=== PATIENT | male | born 1955 | race Caucasian/White ===

== ENCOUNTER → 2018-02-16 11:19 | Outpatient (CLI) | payer MEDICARE, OTHER, SELFPAY ==
--- NOTE | 2018-02-16 | DI.US.S_ITS ---
PROCEDURE: US THYROID INDICATIONS: GLOBUS SYNDROME TECHNIQUE: Real-time scanning was performed of the thyroid gland, with image documentation. COMPARISON: [facility], US, THYROID, 08/21/2016, 10:51. FINDINGS: Right: Thyroid lobe measures 3.7 x 1.1 x 0.9 cm, and is homogeneous in echotexture. Left: Thyroid lobe measures 2.7 x 1.0 x 1.2 cm, and is homogenous in echotexture. Isthmus: 2 mm thick. No thyroid nodules visualized. IMPRESSION: Diminutive thyroid. No nodules visualized. Dictated by: Noreen Gill M.D. on 02/16/2018 at 16:26 Approved by: Noreen Gill M.D. on 02/16/2018 at 16:27
== END ==
PROVIDERS: Family Provider Family Medicine; PCP Family Medicine; Visit Provider Otolaryngology
DX: F45.8 Other somatoform disorders (principal)
CPT/HCPCS: 76536

== ENCOUNTER → 2018-04-12 10:36 | Outpatient (CLI) | payer MEDICARE, OTHER, SELFPAY ==
--- NOTE | 2018-04-12 | DI.RAD.S_ITS ---
PROCEDURE: XR CHEST 2V INDICATIONS: POST LIVER TRANSPLANT TECHNIQUE: 2 views of the chest were acquired. COMPARISON: [facility], CHEST 1 VIEW, 03/22/2012, 15:45. [facility], CHEST 2 VIEW, 02/21/2012, 15:42. [facility], , CHEST 1 VIEW, 02/19/2012, 15:54. [facility], , CHEST 2 VIEW, 02/06/2016, 10:44. [facility], CHEST 2 VIEW, 04/14/2017, 15:47. FINDINGS: Surgical changes and devices: Cervical spine fixation hardware partially visualized. Lungs and pleura: No pleural effusions or pneumothorax. Lungs are clear. Small nodules in the right lung are stable compared to 2015 2011 chest x-rays. There is slight blunting of the right costophrenic angle which is stable compared to prior exams. Mediastinum: Mediastinal contours are normal. Heart size is normal. Bones and chest wall: No suspicious bony abnormalities. Soft tissues appear unremarkable. IMPRESSION: No acute cardiopulmonary disease process. Dictated by: Ale Camargo MD, PhD on 04/12/2018 at 11:37 Approved by: Ale Camargo MD, PhD on 04/12/2018 at 11:40
--- NOTE | 2018-04-12 | DI.US.S_ITS ---
PROCEDURE: US VISCERAL DOPPLER LIMITED INDICATIONS: POST LIVER TRANSPLANT/KIDNEY TECHNIQUE: Real-time scanning was performed of the abdominal and retroperitoneal organs, with image documentation. Color and pulse Doppler interrogation was also performed of the hepatic and splenic vessels, or of the lesion of interest. COMPARISON: [facility], US, VISCERAL DOPPLER LIMITED, 11/11/2017, 16:01. FINDINGS: Liver: Liver is mildly coarse in echotexture and normal in size. Doppler: Main portal vein is patent, with luminal diameter of 19 mm (normal of 13-16 mm). On pulse Doppler interrogation, portal vein flow direction is hepatopetal. Hepatic artery Doppler waveforms demonstrate normal systolic upstrokes. Hepatic veins are all patent, with expected triphasic Doppler waveforms. Gallbladder: Not evaluated Biliary ducts: No intrahepatic biliary ductal dilatation. Extrahepatic bile duct is 10.0 mm in caliber. Normal biliary caliber is 6-7 mm or less, or 10 mm or less post-cholecystectomy. IMPRESSION: 1. Liver is coarse in echotexture and normal Doppler assessment of the hepato-portal vasculature. Of note, the main portal vein is prominent in caliber measuring 19 mm. Dictated by: Aaron Phelps [facility] Interpreted: Gómez Martinez MD on 04/14/2018 at 9:52 Approved by: Gómez Martinez M.D. on 04/14/2018 at 12:17
== END ==
PROVIDERS: Family Provider Family Medicine; PCP Family Medicine; Visit Provider Family Medicine
DX: R05 Cough (principal); Z94.4 Liver transplant status
CPT/HCPCS: 71046; 93976

== ENCOUNTER → 2018-04-26 12:03 | Outpatient (CLI) | payer MEDICARE, OTHER, SELFPAY ==
--- NOTE | 2018-04-26 | DI.US.S_ITS ---
PROCEDURE: US SOFT TISSUE HEAD AND NECK INDICATIONS: LUMP AND SWELLING RIGHT SIDE NECK TECHNIQUE: Real-time scanning was performed of the neck region of interest, with image documentation. COMPARISON: None. FINDINGS: Scanning is performed within the right submandibular region, at the area of clinical concern. No masses, cysts, lipomas, or enlarged lymph nodes are seen. IMPRESSION: Negative ultrasound. Dictated by: Daniel Scott M.D. on 04/26/2018 at 11:58 Approved by: Daniel Scott M.D. on 04/26/2018 at 11:59
== END ==
PROVIDERS: Family Provider Family Medicine; PCP Family Medicine; Visit Provider Otolaryngology
DX: R22.1 Localized swelling, mass and lump, neck (principal)
CPT/HCPCS: 76536

== ENCOUNTER 2018-07-28 15:30 | Outpatient (RCR) | payer MEDICARE, OTHER, SELFPAY | END 2019-01-20 13:48 | LOC: SP 15:30 | PROVIDERS: Family Provider Family Medicine; PCP Family Medicine; Visit Provider Otolaryngology | DX: R49.0 Dysphonia (principal); R13.19 Other dysphagia | CPT/HCPCS: 92507; 92520; 92521; 92526; 92610 ==

== ENCOUNTER → 2019-05-23 09:15 | Outpatient (CLI) | payer MEDICARE, OTHER, SELFPAY ==
--- NOTE | 2019-05-23 | DI.US.S_ITS ---
PROCEDURE: US ABDOMEN COMPLETE INDICATIONS: ENCOUNTER FOR AFTER CARE FOLLOWING ORGAN TRANSPLANT TECHNIQUE: Real-time scanning was performed of the abdominal and retroperitoneal organs, with image documentation. COMPARISON: [facility], CT, ABDOMEN/PELVIS WITH CONTRAST, 03/24/2012, 10:59. [facility], US, US VISCERAL DOPPLER LIMITED, 04/12/2018, 11:41. FINDINGS: Liver: Liver is diffusely increased in echogenicity. No focal hepatic abnormalities identified. Normal hepatic size. Hepatopedal flow present within the portal vein. Gallbladder: Surgically absent. Biliary ducts: Intrahepatic bile ducts are non-dilated. Extrahepatic bile duct not well-visualized. Pancreas: Visualized portions of the pancreas are sonographically normal. Spleen: Spleen is normal in size and homogeneous in echotexture. Kidneys: Atrophic [place] kidneys redemonstrated. Right lower quadrant allograft transplant kidney present measuring 12.9 cm in length. No hydronephrosis. Resistive indices range between 0.64 and 0.69. Aorta: Visualized aorta is normal in caliber at less than 3 cm. Iliacs: Proximal common iliac arteries are normal in caliber at less than 2.5 cm. IVC: Intrahepatic inferior vena cava is patent. Miscellaneous: No free abdominal fluid. IMPRESSION: 1. Increased hepatic echogenicity noted possibly related to hepatic steatosis but other sources of hepatocellular disease cannot be excluded. Recommend clinical correlation. 2. Right lower quadrant allograft transplant kidney redemonstrated and resistive indices are upper limits of normal. Dictated by: Aaron Phelps [facility] Interpreted: Ale Camargo MD on 05/23/2019 at 15:55 Approved by: Ale Camargo MD, PhD on 05/23/2019 at 16:46
== END ==
PROVIDERS: PCP Family Medicine; Visit Provider Family Medicine
DX: Z48.22 Encounter for aftercare following kidney transplant (principal)
CPT/HCPCS: 76700

== ENCOUNTER → 2019-05-27 12:20 | Outpatient (CLI) | payer MEDICARE, OTHER, SELFPAY ==
--- NOTE | 2019-05-27 | DI.RAD.S_ITS ---
PROCEDURE: XR CHEST 2V INDICATIONS: hypertension TECHNIQUE: 2 views of the chest were acquired. COMPARISON: [facility], CHEST 2 VIEW, 04/14/2017, 15:47. [facility], CHEST 2 VIEW, 02/06/2016, 10:44. [facility], XR CHEST 2V, 04/12/2018, 10:19. FINDINGS: Surgical changes and devices: None. Lungs and pleura: High density calcified granulomatous sequela projecting in both lungs as before.. No pleural effusions or pneumothorax. Blunting of the right costophrenic angle, chronic. Mediastinum: Mediastinal contours are normal. Heart size is normal. Bones and chest wall: No suspicious bony abnormalities. Multilevel spondylosis Soft tissues appear unremarkable. IMPRESSION: No interval change or acute disease. Dictated by: Darshan Nieto M.D. on 05/27/2019 at 13:56 Approved by: Darshan Nieto M.D. on 05/27/2019 at 13:59
== END ==
PROVIDERS: PCP Family Medicine; Visit Provider Family Medicine
DX: Z48.298 Encounter for aftercare following other organ transplant (principal); I10 Essential (primary) hypertension
CPT/HCPCS: 71046

== ENCOUNTER → 2020-01-16 12:10 | Outpatient (CLI) | payer MEDICARE, OTHER, SELFPAY ==
--- NOTE | 2020-01-16 | DI.CT.S_ITS ---
PROCEDURE: CT ABDOMEN W CON INDICATIONS: Kidney transplant status TECHNIQUE: After the administration of oral and intravenous contrast, 5 mm thick sections acquired from the diaphragms to the iliac crests. 5 mm thick coronal and sagittal reformats were acquired. For radiation dose reduction, the following was used: automated exposure control, adjustment of mA and/or kV according to patient size. COMPARISON: [facility], CT, ABDOMEN/PELVIS WITH CONTRAST, 03/24/2012, 10:59. Outside Facility, , CT THORAX/ABD/PELVIS W/O CONTRAST, 11/23/2018, 14:40. FINDINGS: Image quality: Excellent. Lung bases: Lung bases are clear. Heart size is normal. Solid organs: Liver is normal in size and enhancement. Low-density cystic lesions within the liver suggest the presence of simple hepatic cysts. Gallbladder is not visualized and is likely surgically absent. No intrahepatic biliary ductal dilatation. The common bile duct measures up to 2 cm in diameter. Pancreas enhances normally. Spleen is normal in size and enhancement. Dystrophic calcifications are present within the midpole of the spleen. No adrenal nodules. Bilateral lower [place] kidneys are severely atrophic. A right renal allograft is present within the right hemipelvis and demonstrates normal size and enhancement. A nonobstructing calculus is present within the midpole which measures 4 mm in diameter. No hydronephrosis. Peritoneum and bowel: Contrast enhanced bowel loops appear normal in caliber. The appendix is thin walled and gas filled. There are scattered sigmoid diverticula. No evidence for diverticulitis. No free fluid or air. Nodes and vessels: No retroperitoneal or mesenteric adenopathy by size criteria. Aorta and inferior vena cava are normal in size. There are scattered atheromatous calcifications throughout the aorta and iliac arteries bilaterally. Dense vascular calcifications are present within the splenic artery. Bones: No suspicious bony lesions. No vertebral body compression fractures. A small bone island is present within the left iliac and the right femoral head. Miscellaneous: No ventral hernias. There is a small right inguinal hernia which contains a non-strangulated portion of the anterior inferior right bladder. Bladder wall thickness is normal IMPRESSION: 1. Normal CT appearance of the right renal allograft. No hydronephrosis. Nonobstructing nephrolithiasis is present. 2. No acute intra-abdominal findings. Normal appendix. 3. Diverticulosis. No acute diverticulitis. 4. Aortic atherosclerosis. Splenic artery atherosclerosis. Dictated by: Noreen Gill M.D. on 01/16/2020 at 15:35 Approved by: Noreen Gill M.D. on 01/16/2020 at 16:03
== END ==
PROVIDERS: PCP Family Medicine; Referring Provider Family Medicine; Visit Provider Family Medicine
DX: Z94.0 Kidney transplant status (principal); N20.0 Calculus of kidney; K57.30 Diverticulosis of large intestine without perforation or abscess without bleeding; I70.8 Atherosclerosis of other arteries; I70.0 Atherosclerosis of aorta; K40.90 Unilateral inguinal hernia, without obstruction or gangrene, not specified as recurrent
CPT/HCPCS: 74160; Q9967

== ENCOUNTER 2020-04-09 13:02 | Outpatient (RCR) | payer MEDICARE, OTHER, SELFPAY ==
--- NOTE | 2020-04-12 14:57 | ST.OPIE ---
Visit Care Team Role Provider Type Rolf Pennington MD Primary Care Provider Physician Specialty: Family Practice Address: [address], [address], [place], [address] Email: Sharan Santos MD Attending Provider Physician Referring Provider Specialty: Ear, Nose, Throat Address: [address] [place] [address], [id number] Email: [email or web address] Speech-Language Pathology Initial Evaluation DIGITAL SERVICE ENGINEER Clinical Swallow Evaluation Start: 04/09/20 16:18 Freq: Status: Active Protocol: Document 04/09/20 16:18 LL (Rec: 04/09/20 16:22 LL [id number]) Clinical Swallow Evaluation Session Time Visit Start Date 04/09/20 Visit Start Time 13:30 Visit Stop Date 04/09/20 Visit Stop Time 14:28 Total Visit Minutes 58 Visit Information Visit Number 1 Plan of Care Dates 04/09/20-07/09/20 Insurance Information Medicare Referral Referring Provider Dr. Sharan Santos Reason for Referral Dysphagia Setting Assessment Location Outpatient Care Visit Type Note Type Initial evaluation Next Note Type Next Note Type Treatment Note Patient Information Identification Type Name,ID Card History Manuel is a 65-year-old male with complaints of increased choking / throat clearing on food and liquid. Manuel has received speech therapy services at [facility] over the last several years to address his dysphonia and dysphagia. Received MBSS at [facility] on 06/22/17, which revealed mild pharyngeal dysphagia with laryngeal penetration and mild aspiration of thin liquids taken in large volume and in consecutive swallows and without cough response. Received clinical swallow evaluation on 05/03/18 and findings suggested dysphagia secondary to reduced strength, coordination, and ROM of swallow reducing airway protection. Manuel was discharged from on 07/28/18 with a home exercise program that he continues to practice daily per self-report. Per recent visit with Dr. Sharan Santos, Manuel and his daughter reported that though he continues to practice his home exercise program, they feel that things have worsened especially with thin liquids. Manuel was treated for bronchitis on 03/06/20 and reported improved cough and no throat pain/discomfort. Manuel continues to have complaints of hoarseness of voice, however, he self- reported during 06/22/17 MBSS that he has right vocal fold paralysis following ACDF in 2012. Through previous chart review, it was reported that flexible laryngoscopy was performed by Dr. Sharan Santos (ENT) on 06/11/17 and revealed right nasal cavity, nasopharynx, base of tongue, vallecula, epiglottis, pyriform sinuses, and vocal folds all appear normal. Vocal folds were observed to be normally mobile without lesion or obvious asymmetry of mobility. Dr. Sharan Santos did note that based on Manuel's history of paralysis of the right vocal fold and worsening dysphagia, there may be ongoing paresis of the vocal fold involved. Per recent ENT visit, it was noted that Manuel downplayed voice issues and reported no other ENT complaints. Manuel reported that he returned to speech therapy per daughter's request and increased family concern for his swallow safety . Subjective Observations Manuel arrived on time with his grandson, who was present throughout the evaluation. Manuel provided additional case history information to supplement medical records. Reported by Patient Pain Intensity 0 Pain Scale Used Numeric (0 - 10) Other Symptoms Choking,Coughing,Difficulty swallowing liquids,Difficulty swallowing solids,Food gets stuck,History of aspiration or pneumonia Comment Manuel listed the recommended swallow strategies provided by previous DIGITAL SERVICE ENGINEER, which include small bites, small single sips only, and reduce distractions to decrease risk of aspiration. Manuel reported that experiences choking / throat clearing episodes whenever he does not follow the swallow strategies listed above, especially when he does not limit distractions (e.g., talking, watching tv). Manuel self-reported that he intermittently pockets food on the right side of his throat, specifically with crunchy foods such as popcorn and chips. He reported that he can clear the throat residue with a strong cough / throat clear. 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 Manuel reported that his daughter cuts up his food into smaller pieces to make it easier to grab with eating utensil, regulate rate of intake, and control size of bolus. Current Diet Regular,Chopped,Thin liquids Baseline Feeding Method Needs some assistance Objective Assessment Mental Status Alert,Cooperative Oral Integrity WFL Dentition Within normal limits Lip Function Within normal limits Observation of Lips at Rest Symmetrical Pucker Within normal limits Lip Retraction Within normal limits Alternating Pucker/Lip Retraction Within normal limits Tongue Function Within normal limits Observations of Tongue at Rest Within normal limits Tongue Protrusion Within normal limits Tongue Retraction Within normal limits Tongue Lateralization Within normal limits Observations of Jaw at Rest Within normal limits Jaw Opening Within normal limits Jaw Closing Within normal limits Jaw Lateralization Within normal limits Hard/Soft Palate Function Within normal limits Observations of Hard/Soft Palate Within normal limits Nasality Within normal limits Phonation Hoarse,Harsh,Strained/ Strangled Respiratory Sufficiency Within normal limits Comment Manuel self-reported that he continues to 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 Manuel received speech therapy to address dysphonia and flexible laryngoscopy revealed that his vocal folds were observed to be normally mobile without lesion or obvious asymmetry of mobility. Food and Liquid Trials Position During Assessment Upright (90 degrees) Liquids Trialed Thin,[place] Solids Trialed Puree,Regular Administration Type Cup single sip,Cup consecutive sips,Straw,Self-feeding,Needs some assistance Oral Impairment Within functional limits Oral Phase Comments Oral Peripheral Exam: Normal oral cavity size and symmetrical structures WFL of strength, coordination, and ROM. Oral Phase: WFL. Minimal oral residue present which cleared with thin liquid wash. Pharyngeal Impairment Mildly impaired Pharyngeal Phase Comments No over s/sx of aspiration were observed with all trials during clinical swallow evaluation; however, silent aspiration of thin liquids was observed during most recent MBSS. Intermittent throat clearing without PO was observed. Fatigue/Endurance Endurance WNL Findings Swallowing Function Pharyngeal phase dysphagia Severity of Swallow Impairment Mildly impaired Contributing Factors to Swallow Impaired airway protection Impairment Prognosis Fair Based on Cognitive status,Family support,History of aspiration/ aspiration pneumonia, Comorbidities,Duration of symptoms/severity Comment Manuel has wonderful family support to assist in ensuring that he follows recommended swallow strategies. Impact on Safety and Functioning Risk for aspiration Recommendations Instrumental Assessment Yes Swallowing Treatment Yes Recommended Solids Regular Recommended Liquids Thin Safety Precautions/Swallowing Reduce distractions,Remain Recommendations upright (90 degrees) during all oral intake,Small bites and sips when eating,Slow rate ; swallow between bites,Set-up assistance,Family assistance/ supervision Medication Recommendations As Tolerated Education Patient/Caregiver Education Described results of evaluation,Patient expressed understanding of evaluation, Patient expressed agreement with goals & treatment plans, Family/caregivers expressed understanding of evaluation, Family/caregivers expressed agreement with goals & treatment plans,Patient expressed understanding of safety precautions,Family/ caregivers expressed understanding of safety precautions,Patient requires further education/training, Family/caregivers require further education/training Goals Short-term Goals Manuel will participate in a modified barium swallow study to determine least restrictive diet, risk for aspiration, and skilled therapy recommendations. ST follow-up after modified barium swallow study to receive results and guide POC.
--- NOTE | 2020-08-28 11:29 | ST.OPDS ---
Patient last seen for MBS on 05/03/20. Discharge from at this time due to lapse in therapy.
== END 2020-09-03 15:10 ==
LOC: SP 13:02
PROVIDERS: PCP Family Medicine; Referring Provider Otolaryngology; Visit Provider Otolaryngology
DX: R13.19 Other dysphagia (principal)
CPT/HCPCS: 92610

== ENCOUNTER → 2020-05-03 12:53 | Outpatient (CLI) | payer MEDICARE, OTHER, SELFPAY ==
--- NOTE | 2020-05-03 | DI.RAD.S_ITS ---
PROCEDURE: FL BARIUM SWALLOW W SPEECH INDICATIONS: Other dysphagia COMPARISON: None. TECHNIQUE: Examination was conducted in conjunction with speech pathology per standard protocol. In the lateral projection, filming was performed of the patient swallowing. AP projection filming may also be performed with patient swallowing. COMPARISON: FINDINGS: Function: The oral preparatory phase appears normal, with proper containment. The subsequent oral propulsive phase, pharyngeal phase, and esophageal phase of swallowing also appear normal with all proffered substances. Mild laryngotracheal penetration noted with thin liquids which diminished with increasing liquid viscosity. No aspiration. No pathologic vallecular pooling. Morphology: No cricopharyngeal bar is identified. No cervical esophageal webs. No Zenker's diverticulum. No strictures. IMPRESSION: Mild laryngotracheal penetration with thin liquids. Dictated by: Ale Camargo MD, PhD on 05/03/2020 at 15:38 Approved by: Ale Camargo MD, PhD on 05/03/2020 at 15:39
--- NOTE | 2020-05-03 16:55 | ST.SWALLOW ---
Visit Care Team Role Provider Type Rolf Pennington MD Primary Care Provider Physician Referring Provider Specialty: Family Practice Address: [address], [address], [place], [address] Email: Sharan Santos MD Attending Provider Physician Specialty: Ear, Nose, Throat Address: [address] [place] [address], [id number] Email: [email or web address] Modified Barium Swallow Study MANAGER VIDEO Modified Barium Swallow Study Start: 05/03/20 15:10 Freq: Status: Active Protocol: Document 05/03/20 15:10 LNK (Rec: 05/03/20 15:30 LNK [id number]) Modified Barium Swallow Study Total Time Visit Start Time 13:45 Visit Stop Time 14:15 Total Visit Minutes [address] Santos Setting Setting Outpatient Care Patient Information Identification Type Name,Date of Patient History Pt was seen for Modified Barium Swallow Study (MBSS) at the referral of Dr. Santos. Pt has a medical history that included ACDF surgery and dysphagia. The pt described his swallowing problems as starting after his ACDF surgery . Pt had a MBSS on 2016. The results noted laryngeal penetration and aspiration of thin liquids. Pt reported he saw ST for dysphagia therapy 7-8 times following MBSS. Pt continues to cough during meals if he isn't paying attention to swallowing. Typically he has coughing after drinking and when eating crunchy foods like chips and small pieces of foods. His daughter has been concerned about his coughing episodes. Subjective Observations pt was seated in the fluoroscopy chair. Procedures and instructions were provided . Pt indicated he understood and agreed with proceeding. Patient Positioning Position View Lat-A/P Imaging Lateral View Textures Administered Trials Presented Thin Liquid via Spoon,Thin Liquid via Cup,Thin Liquid via Straw,Ledbetter Liquid via Spoon ,Ledbetter Liquid via Cup,Pudding Thick Liquid via Spoon, Regular Textures Oral Phase Source: MBSIMP (TM) (C) Bolus Specific Scoring Grid Lip Closure WFL Tongue Control During Bolus Hold WFL Bolus Prep/Mastication WFL Bolus Transport/Lingual Motion WFL A/P Lingual Propulsion Delay No Oral Residue Minimal Impairment Residue Clearing WFL Nasal Regurgitation No Additional Oral Phase Observations OME was completed and indicated oral structures and function to be WFL. Dentition consisted of natural teeth in good hygiene. Pharyngeal Phase Source: MBSIMP (TM) (C) Bolus Specific Scoring Grid Delayed Initiation of Pharyngeal Swallow Yes: Premature spillage to the valeculla and pyriform sinuses pre-swallow Number of Seconds Delayed (seconds) ~1-1.5s Soft Palate Elevation WFL Tongue Base Strength/Range of Motion Mild Impairment Residue Along the Tongue Base Yes Clearance of Residue Along Tongue Base Minimal Impairment Laryngeal Elevation Mild Impairment Anterior Hyoid Movement Mild Impairment Epiglottic Range of Motion Minimal Impairment Vallecular Residue Yes Clearance of Vallecular Residue Moderate Impairment Laryngeal Vestibular Closure Moderate Impairment Pharyngeal Stripping Wave Mild Impairment Upper Esophageal Sphincter Opening Minimal Impairment Residue in the Pyriform Sinuses Yes Clearance of Residue in the Pyriform Mild Impairment Sinuses Esophageal Clearance Upright Position Minimal Impairment Pharyngoesophageal Backflow Observed No Additional Pharyngeal Phase Observations Premature spillage into the valeculla and into the pyriform sinuses was observed consistently during assessment . Hyolaryngeal elevation and forward excursion were mildly impaired. This effected the epiglottic seal of the laryngeal vestibule. Laryngopharyngeal contact was also weak. The epiglottic seal was observed to be incomplete, with frequent penetration into the larynx of thin liquids from a cup. The epiglottis was observed to invert fully; however, there was a poor laryngeal seal. Use of a straw was tried with improved swallow and flash/ less laryngeal penetration observed. Aspiration was not observed. A/P View Textures Administered Trials Presented Ledbetter Liquid via Cup A/P View Observations Residue Observed Valleculae Right,Valleculae Left,Pyriform Sinus Right, Pyriform Sinus Left Esophageal Function Narrowing Esophageal Clearance Upright Position WFL Clinical Impressions Dysphagia Type pharyngeal Findings The pt describes his dysphagia as starting after he had ACDF surgery. However, the pt's swallow demonstrated improvement from that of 06/22. In the 2017 MBSS, the pt presented with moderate penetration and aspiration of thin liquids. He also was observed to have reduced pharyngeal control of the bolus . Today's MBSS noted penetration but no aspiration as well as improved bolus control through the pharynx. Rehabilitation Potential Good Patient Appropriate for Therapy Yes Recommendations Diet Liquids Order Thin Diet Order Regular Medication Recommendation As Tolerated Additional Dietary Needs Chopped Food,Controlled Sips Aspiration Precautions Recommended Precautions Upright at 90 Degrees,Frequent Rest Periods,Double Swallow Treatment Plan Therapy Recommendations Outpatient Speech Therapy,Base of Tongue Exercises, Compensatory Strategy Education Compensatory Strategies Recommendations Sitting Upright (90 deg), Double Swallow,Small Bites and Sips Short Term Goals Pt will be provided education about and follow a regimen of exercises designed to increase hyolaryngeal elevation and excursion forward. Pt will report a decrease in frequency of coughing when eating drinking. Payroll Bookkeeper Goals Pt will safely tolerate the least restrictive diet to meet the pt's nutritional and hydration needs.
== END ==
PROVIDERS: PCP Family Medicine; Referring Provider Family Medicine; Visit Provider Otolaryngology
DX: R13.19 Other dysphagia (principal)
CPT/HCPCS: 74230; 92611

== ENCOUNTER 2021-01-18 08:42 | Inpatient (IN) | payer MEDICARE, OTHER, SELFPAY ==
[2021-01-18] VITALS (25 sets, daily range): BP systolic 113–166; BP diastolic 62–105; PULSE 82–140; RESP 8–34; TEMP 36.7–36.9; O2SAT 86–98; BMI 22.4
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
[2021-01-18 09:56] LABS: Add Manual Diff / Slide Review NO; Basophils Absolute Auto 100 /uL (0-100); Basophils Percent Auto 0.6 % (0-2); Eosinophils Absolute Auto 100 /uL (0-450); Eosinophils Percent Auto 0.8 % (2-4); Hematocrit 32.3 % (41-53); Lymphocytes Absolute Auto 900 /uL (1100-4500); Lymphocytes Percent Auto 8.3 % (25-40); Mean Corpuscular HGB Conc 34.1 % (30-36); Mean Corpuscular Hemoglobin 29.6 PG (26-34); Mean Corpuscular Volume 86.6 fL (80-100); Monocytes Absolute Auto 1100 /uL (0-900); Monocytes Percent Auto 10.2 % (3-14); Neutrophils Absolute Auto 8700 /uL (1500-7000); Neutrophils Percent Auto 80.1 % (50-75); Platelet Count 333 X10^3/uL (150-400); Red Blood Cell Count 3.73 X10^6/uL (4.5-5.9); Red Cell Distribution Width 13.3 % (11.6-14.8); White Blood Cell Count 10.8 X10^3/uL (4.5-11.0)
[2021-01-18 10:00] LABS: Prothrombin Time 34.6 SECONDS (10.1-12.7)
[2021-01-18 10:02] LABS: PTT Partial Thromboplastin Tim 40 SECONDS (26.4-36.2)
[2021-01-18 10:07] LABS: Ammonia (NH3) < 9 umol/L (9-30)
[2021-01-18] MEDS: MORPHINE 4 MG/ML INJ IV ×2 (10:07→13:00)
[2021-01-18] MEDS: SODIUM CHLORIDE 0.9% 1,000 ML 1000 ML IV ×2 (10:07→18:00)
[2021-01-18 10:08] LABS: Alanine Aminotransferase 78 IU/L (<50); Albumin 3.2 g/dL (3.5-5.0); Albumin Globulin Ratio 0.9 (1.0-2.8); Alkaline Phosphatase 65 U/L (38-126); Aspartate Aminotransferase 94 IU/L (17-59); Blood Urea Nitrogen 17 mg/dL (9-20); Calcium 9.2 mg/dL (8.4-10.2); Carbon Dioxide 25 mmol/L (22-32); Chloride 104 mmol/L (98-107); Estimated Glomerular Filt Rate > 60.0 mL/min (>60); Globulin 3.4 g/dL (1.7-4.1); Glucose 127 mg/dL (80-110); HEMOLYSIS < 15 (0-50); Lactate (Lactic Acid) 2.1 mmol/L (0.7-2.1); Lipase 20 U/L (23-300); Potassium 3.8 mmol/L (3.4-5.1); Sodium 137 mmol/L (137-145); Total Protein 6.6 g/dL (6.3-8.2)
[2021-01-18] MEDS: LIDO 1%/SOD BICARB 8.4% (10ML) 10 ML SYRINGE INJ (10:09)
[2021-01-18 10:23] LABS: Procalcitonin 0.11 ng/mL (<0.5)
[2021-01-18 10:36] LABS: COVID19 - ADMIT (NP swab/PCR) POSITIVE (Negative)
[2021-01-18 10:38] LABS: Thyroid Stimulating Hormone 1.07 uIU/mL (0.47-4.68)
[2021-01-18 10:40] LABS: Creatine Kinase < 20 U/L (55-170)
[2021-01-18 10:53] LABS: NT-proBNP (BNP-Adult 18+) 1750 pg/mL (<125); Troponin I < 0.012 ng/mL (0.01-0.034)
[2021-01-18] MEDS: dilTIAZem 5 MG/ML SDV 20 MG IV (10:58)
[2021-01-18] MEDS: FUROSEMIDE 40 MG/4 ML VIAL IV (11:06)
[2021-01-18 11:51] LABS: Reflexed Lactate in 2 Hours Y
[2021-01-18 11:53] LABS: Bacteria Urine None Seen; RBC Urine None Seen (0-5/HPF); WBC Urine None Seen (0-5/HPF)
[2021-01-18 11:55] LABS: Appearance Urine UA CLEAR; Bilirubin Urine UA NEGATIVE (NEGATIVE); Color Urine UA YELLOW; Glucose Urine UA NEGATIVE (Negative); Ketones Urine UA TRACE (NEGATIVE); Leukocyte Esterase Urine UA NEGATIVE (NEGATIVE); Nitrite Urine UA NEGATIVE (Negative); Occult Blood Urine UA NEGATIVE (Negative); Protein Urine UA NEGATIVE (Negative); Specific Gravity Urine UA 1.015 (1.000-1.035); Urobilinogen Urine UA 0.2 E.U./dL (0.2); pH Urine UA 5.5 (4.5-8.0)
[2021-01-18 11:59] LABS: UR Morphine/Opiate cutoff 300 Positive (Negative); Ur Creatinine Normal (Normal); Ur Specific Gravity Normal (Normal); Urine Amphetamines Negative (Negative); Urine Barbiturates Negative (Negative); Urine Benzodiazepines Positive (Negative); Urine Cocaine Negative (Negative); Urine MDMA Negative (Negative); Urine Methadone Negative (Negative); Urine Methamphetamines Negative (Negative); Urine Oxycodone Positive (Negative); Urine Phencyclidine Negative (Negative); Urine Tetrahydrocannabinol Positive (Negative); Urine Tricyclic Antidepressant Negative (Negative); Urine pH Normal (Normal)
[2021-01-18 12:02] LABS: Amorphous Sediment Urine 1+; Culture Indicated Urine Cult Not Indicated; Squamous Epithelial Cell Urine 0-1 /HPF (0-5/HPF)
[2021-01-18] MEDS: dilTIAZem CD 180 MG CAP PO (13:00)
[2021-01-18 14:06] LABS: Lactate 2HR (Lactic Acid Rflx) 1.4 mmol/L (0.7-2.1)
--- NOTE | 2021-01-18 14:34 | PC.NURSE ---
1030 Patient noted to be in A. Fib. with RVR at this time at a rate of 140-160bpm. It is occasionally converting back to normal sinus rhythm with a rate of about 95bpm. But then quickly returns to A. Fib. again. I ordered another EKG and informed Dr. Pope.
--- NOTE | 2021-01-18 14:38 | PC.NURSE ---
1300 Patient insists upon getting up to commode instead of using a urinal in bed with assistance. I spoke with him and offered him a condom catheter which he agreed to.
--- NOTE | 2021-01-18 14:39 | PC.NURSE ---
[address], bag secrued to leg. Urine is draining into bag.
--- NOTE | 2021-01-18 17:04 | DI.CT.S_ITS ---
PROCEDURE: CT ABDOMEN PELVIS W CON INDICATIONS: abdominal pain TECHNIQUE: After the administration of IV contrast, axial sections were acquired from the lung bases to the pubic symphysis. Coronal and sagittal reformats were performed. For radiation dose reduction, the following was used: automated exposure control, adjustment of mA and/or kV according to patient size. COMPARISON: Outside Facility, , CT THORAX/ABD/PELVIS W/O CONTRAST, 11/23/2018, 14:40. Formerly [facility], CT, ABDOMEN/PELVIS WITH CONTRAST, 03/24/2012, 10:59. FINDINGS: Image quality: Excellent. Lung bases: Unremarkable. Heart: No significant findings. ABDOMEN: Liver: Unremarkable. Gallbladder: The gallbladder is absent. Biliary ducts: There is prominence of the common bile duct measuring 2.5 cm, unchanged. Pancreas: Unremarkable. Spleen: Unremarkable. Adrenal Glands: Unremarkable. Kidneys and Ureters: [place] kidneys demonstrate severe renal atrophy. Transplanted kidney is noted within the right lower pelvis. There is a nonobstructing midpole calcification, unchanged. Very minimal appearance of renal collecting system prominence compared to prior exam. The ureter is unremarkable. Stomach and Bowel: Stomach, small bowel loops, and colon are unremarkable. Colonic diverticula are present. Peritoneum: No abnormal intraperitoneal fluid. No free air. Ventral Wall: No hernia. Abdominal Nodes: No retroperitoneal or mesenteric adenopathy by size criteria. Vessels: Aorta and inferior vena cava are normal in size. PELVIS: Pelvic Organs: Unremarkable. Bladder: Bladder is significantly distended. Pelvic Nodes: No enlarged lymph nodes. Miscellaneous: No inguinal hernias are seen. Bones: Degenerative changes are present within the lower lumbar spine most notable at L4-5. IMPRESSION: 1. Significantly distended bladder. 2. 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 No visualized source of obstruction is identified. Nonobstructing calcification is unchanged. 3. Diverticulosis. Dictated by: Joyce Hernandez M.D. on 01/18/2021 at 18:11 Approved by: Joyce Hernandez M.D. on 01/18/2021 at 18:15
--- NOTE | 2021-01-18 17:55 | PC.NURSE ---
Spoke with daughter Fatuma and informed her of admission.
--- NOTE | 2021-01-18 18:43 | PM.HP.1 ---
History of Present Illness History of Present Illness Date Patient Seen: 01/18/21 Time Patient Seen: 16:43 Chief complaint: post covid, blood clots, confusion, weak Narrative: Mr. Beatty is a 65M he has a PMH of traumatic injury while young s/p b/l upper extremity amputation, remote hep C cirrhosis s/p liver/kidney transplant, recent diagnosis of diverticulitis in November 2020, recent COVID infection diagnosed about 3 weeks ago, recent DVT in R leg started on eliquis who is coming in for multiple reasons. His daughther noted that patient has not been back to his normal for the last month, but has more recently developed some confusion over the last 1-2 weeks where he talks jibberish per the daughter. He has been having pain in multiple areas including his abdomen, and he has chronic bilateral shoulder pain. He was having a minor cough, no shortness of breath, no fevers/chills. He was not having any vomiting or diarrhea, he was having nausea. No dysuria. His daughter notes he has been increasingly weak over the last few weeks and has not been able to get out of a chair easily. In the ED, he was noted to be tachycardic in afib with RVR to the 150s and got IV cardizem which improved rate to 100s and then was ordered for oral cardizem. He was intermittently in sinus and atrial fibrillation. The rest of his vitals were normal. Labs notable for WBC of 10.8 with 80% PMNs, hgb 11, INR 3, creatinine 1.06, lactate initially 2.1 then improved to 1.4 with fluids. AST 94, ALT 78, ammonia undetectable. Troponin negative. BNP 1750. Procalcitonin 0.11. TSH 1.07. UA showed no infection. Urine tox showed opiates, benzos, and marijuana. COVID was positive. Tacrolimus ordered. Chest xray showed no acute process. CT head showed no acute process. CT abdomen/pelvis showed distended bladder, transplanted kidney, diverticulosis. He was admitted for further treatment. Patient History Family & Social History Family History (Updated 01/18/21 @ 18:58 by Aaron Renae MD) Daughter Brain cancer Safety & Behavioral: Feels Safe in Current Yes Environment Been Physically Hurt or No Threatened By a Person Tobacco & Substance use: Smoking Status Never smoker alcohol intake frequency other Substance Use Type does not use Meds Home Medications and Allergies Home Medications Medication Instructions Recorded Confirmed Type Tamsulosin Hydrochloride (Flomax) 0.4 mg PO HS #0 06/08/08 History ASPIRIN (Aspir-Low) 81 mg PO QDAY #0 02/13/12 History Fluoxetine Hydrochloride 20 mg PO QDAY #0 02/13/12 History (FLUOXETINE) diazepam 10 mg PO QDAY #0 02/13/12 History mycophenolate sodium [Myfortic] 360 mg PO BID #0 02/13/12 History omeprazole 20 mg PO QDAY #0 02/13/12 History prednisone 5 mg PO QDAY #0 02/13/12 History Hydromorphone HCL (HYDROmorphone) 4 mg PO Q8HP #0 02/17/12 History DOCUSATE SODIUM (COLACE) 250 mg PEG BID #0 03/22/12 History HYDROMORPHONE HCL/PF (Dilaudid 4 4 mg PEG Q8H #0 03/22/12 History MG/Ml Ampul) Hydromorphone HCL (HYDROmorphone) 2 mg IV #0 03/22/12 History acetaminophen 650 mg PO Q4HP #0 03/22/12 History metoprolol tartrate 12.5 mg PO BID #0 03/22/12 History mycophenolate sodium [Myfortic] 360 mg PEG BID #0 03/22/12 History ondansetron 8 mg PO Q6HP #0 03/22/12 History Allergies Allergy/AdvReac Type Severity Reaction Status Date / Time No Known Drug Allergies Allergy Verified 01/18/21 09:09 Review of Systems Review of Systems Narrative: 14 systems reviewed and negative aside from what is noted in HPI Exam Vital Signs (past 8 hours): - 01/18/21 11:00 01/18/21 11:30 01/18/21 12:00 Pulse Rate 93 H 99 H 96 H Respiratory Rate 27 H 34 H 25 H Blood Pressure 113/62 121/73 113/71 Pulse Oximetry 93 94 96 01/18/21 12:30 01/18/21 13:00 01/18/21 13:30 Pulse Rate 100 H 102 H 107 H Respiratory Rate 8 L Blood Pressure 135/63 140/77 Pulse Oximetry 95 95 96 01/18/21 14:00 01/18/21 14:30 01/18/21 15:00 Pulse Rate 104 H 105 H 105 H Respiratory Rate Blood Pressure 147/78 H 140/78 138/81 Pulse Oximetry 97 97 94 01/18/21 15:28 01/18/21 15:30 01/18/21 15:32 Pulse Rate 110 H 82 Respiratory Rate Blood Pressure 166/105 H Pulse Oximetry 96 90 L 01/18/21 16:00 01/18/21 16:30 01/18/21 17:00 Pulse Rate 104 H 106 H 110 H Respiratory Rate 24 21 19 Blood Pressure 142/69 H 143/75 H 156/90 H Pulse Oximetry 96 96 95 Oxygen Delivery Method Room Air Narrative Exam Narrative: GEN: mild distress from pain in his abdomen, thin, alert HEENT: PERRL, moist mucous membranes NECK: no JVD, trachea midline HEART: Regular rate and rhythm with no murmurs LUNGS: lungs clear bilaterally ABD: bowels normal, soft, nondistended, tender to palpation : no CVA tenderness MSK: Non-tender, no edema NEURO:confused, but no focal neuro deficits SKIN: no rashes noted Objective Labs Result Diagrams: 01/18/21 09:45 01/18/21 09:45 Labs: Laboratory Results - last 24 hr 01/18/21 01/18/21 01/18/21 09:20 09:45 09:45 WBC 10.8 RBC 3.73 L Hgb 11.0 L Hct 32.3 L MCV 86.6 MCH 29.6 MCHC 34.1 RDW 13.3 Plt Count 333 Neut % (Auto) 80.1 H Lymph % (Auto) 8.3 L [place] % (Auto) 10.2 Eos % (Auto) 0.8 L Baso % (Auto) 0.6 Neut # (Auto) 8700 H Lymph # (Auto) 900 L [place] # (Auto) 1100 H Eos # (Auto) 100 Baso # (Auto) 100 PT INR APTT Sodium 137 Potassium 3.8 Chloride 104 Carbon Dioxide 25 BUN 17 Creatinine 1.06 Estimated GFR > 60.0 BUN/Creatinine Ratio 16.0 Glucose 127 H Lactate Calcium 9.2 Total Bilirubin 1.0 AST 94 H ALT 78 H Alkaline Phosphatase 65 Ammonia Total Creatine Kinase CK-MB (CK-2) CK-MB (CK-2) Rel Index Troponin I NT-Pro-B Natriuret Pep Total Protein 6.6 Albumin 3.2 L Globulin 3.4 Albumin/Globulin Ratio 0.9 L Lipase 20 L Procalcitonin 0.11 TSH Urine Color Urine Appearance Urine pH Ur Specific [place] Urine Protein Urine Glucose (UA) Urine Ketones Urine Occult Blood Urine Nitrate Urine Bilirubin Urine Urobilinogen Ur Leukocyte Esterase Urine RBC Urine WBC Ur Squamous Epith Cells Amorphous Sediment Urine Bacteria Ur Culture Indicated? U Opiates 300ng/mL cut Ur Oxycodone Screen Urine Methadone Screen Ur Barbiturates Screen U Tricyclic Antidepress Ur Phencyclidine Scrn Ur Amphetamines Screen U Methamphetamines Scrn Ur MDMA Scrn (Ecstasy) U Benzodiazepines Scrn Urine Cocaine Screen U Marijuana (THC) Screen SARS-CoV-2 (PCR) Positive H 01/18/21 01/18/21 01/18/21 09:45 09:45 09:45 WBC RBC Hgb Hct MCV MCH MCHC RDW Plt Count Neut % (Auto) Lymph % (Auto) [place] % (Auto) Eos % (Auto) Baso % (Auto) Neut # (Auto) Lymph # (Auto) [place] # (Auto) Eos # (Auto) Baso # (Auto) PT 34.6 H INR 3.0 H APTT 40 H Sodium Potassium Chloride Carbon Dioxide BUN Creatinine Estimated GFR BUN/Creatinine Ratio Glucose Lactate 2.1 Calcium Total Bilirubin AST ALT Alkaline Phosphatase Ammonia Total Creatine Kinase CK-MB (CK-2) CK-MB (CK-2) Rel Index Troponin I NT-Pro-B Natriuret Pep Total Protein Albumin Globulin Albumin/Globulin Ratio Lipase Procalcitonin TSH 1.07 Urine Color Urine Appearance Urine pH Ur Specific [place] Urine Protein Urine Glucose (UA) Urine Ketones Urine Occult Blood Urine Nitrate Urine Bilirubin Urine Urobilinogen Ur Leukocyte Esterase Urine RBC Urine WBC Ur Squamous Epith Cells Amorphous Sediment Urine Bacteria Ur Culture Indicated? U Opiates 300ng/mL cut Ur Oxycodone Screen Urine Methadone Screen Ur Barbiturates Screen U Tricyclic Antidepress Ur Phencyclidine Scrn Ur Amphetamines Screen U Methamphetamines Scrn Ur MDMA Scrn (Ecstasy) U Benzodiazepines Scrn Urine Cocaine Screen U Marijuana (THC) Screen SARS-CoV-2 (PCR) 01/18/21 01/18/21 01/18/21 09:45 09:45 09:45 WBC RBC Hgb Hct MCV MCH MCHC RDW Plt Count Neut % (Auto) Lymph % (Auto) [place] % (Auto) Eos % (Auto) Baso % (Auto) Neut # (Auto) Lymph # (Auto) [place] # (Auto) Eos # (Auto) Baso # (Auto) PT INR APTT Sodium Potassium Chloride Carbon Dioxide BUN Creatinine Estimated GFR BUN/Creatinine Ratio Glucose Lactate Calcium Total Bilirubin AST ALT Alkaline Phosphatase Ammonia < 9 L Total Creatine Kinase < 20 L CK-MB (CK-2) TNP CK-MB (CK-2) Rel Index TNP Troponin I < 0.012 NT-Pro-B Natriuret Pep 1750 H Total Protein Albumin Globulin Albumin/Globulin Ratio Lipase Cancelled Procalcitonin TSH Urine Color Urine Appearance Urine pH Ur Specific [place] Urine Protein Urine Glucose (UA) Urine Ketones Urine Occult Blood Urine Nitrate Urine Bilirubin Urine Urobilinogen Ur Leukocyte Esterase Urine RBC Urine WBC Ur Squamous Epith Cells Amorphous Sediment Urine Bacteria Ur Culture Indicated? U Opiates 300ng/mL cut Ur Oxycodone Screen Urine Methadone Screen Ur Barbiturates Screen U Tricyclic Antidepress Ur Phencyclidine Scrn Ur Amphetamines Screen U Methamphetamines Scrn Ur MDMA Scrn (Ecstasy) U Benzodiazepines Scrn Urine Cocaine Screen U Marijuana (THC) Screen SARS-CoV-2 (PCR) 01/18/21 01/18/21 01/18/21 11:40 11:40 13:50 WBC RBC Hgb Hct MCV MCH MCHC RDW Plt Count Neut % (Auto) Lymph % (Auto) [place] % (Auto) Eos % (Auto) Baso % (Auto) Neut # (Auto) Lymph # (Auto) [place] # (Auto) Eos # (Auto) Baso # (Auto) PT INR APTT Sodium Potassium Chloride Carbon Dioxide BUN Creatinine Estimated GFR BUN/Creatinine Ratio Glucose Lactate 1.4 Calcium Total Bilirubin AST ALT Alkaline Phosphatase Ammonia Total Creatine Kinase CK-MB (CK-2) CK-MB (CK-2) Rel Index Troponin I NT-Pro-B Natriuret Pep Total Protein Albumin Globulin Albumin/Globulin Ratio Lipase Procalcitonin TSH Urine Color Yellow Urine Appearance Clear Urine pH 5.5 Ur Specific [place] 1.015 Urine Protein Negative Urine Glucose (UA) Negative Urine Ketones Trace H Urine Occult Blood Negative Urine Nitrate Negative Urine Bilirubin Negative Urine Urobilinogen 0.2 Ur Leukocyte Esterase Negative Urine RBC None seen Urine WBC None seen Ur Squamous Epith Cells 0-1 /hpf Amorphous Sediment 1+ Urine Bacteria None seen Ur Culture Indicated? Cult not indicated U Opiates 300ng/mL cut Positive H Ur Oxycodone Screen Positive H Urine Methadone Screen Negative Ur Barbiturates Screen Negative U Tricyclic Antidepress Negative Ur Phencyclidine Scrn Negative Ur Amphetamines Screen Negative U Methamphetamines Scrn Negative Ur MDMA Scrn (Ecstasy) Negative U Benzodiazepines Scrn Positive H Urine Cocaine Screen Negative U Marijuana (THC) Screen Positive H SARS-CoV-2 (PCR) Assessment & Plan Assessment & Plan narrative: Mr. 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 1. Acute encephalopathy, probable metabolic -multiple possible etiologies -infection workup negative for pneumonia on imaging, negative for diverticulitis, negative for urinary infection -COVID positive, but not short of breath and not hypoxemic ----however could be having post Covid symptoms of confusion -also taking benzos, opiates, and marijuana which could be causing symptoms -CT head unremarkable -may need brain MRI if not improving 2. Atrial fibrillation with RVR -noted to be in new afib in the ED -TSH normal -ECHO ordered -already on anticoagulation for DVT -received dilt IV in ED, and transitioned to oral diltiazem currently 3. Recent DVT -diagnosed prior to this admission -continue apixaban -no evidence of respiratory symptoms, but will have low threshold for CT angio chest 4. s/p Liver/kidney transplant -ammonia normal -ordered prednisone, MMF, and will plan for tacrolimus once dose confirmed -tacro level ordered 5. s/p bilateral upper extremity amputation -has chronic pain -pain treated as below 6. Chronic pain with opiate, benzo dependence, and marijuana use -continue pain treatment with vicodine -for benzos continue night dose of diazepam -try to avoid further medications to limit confusion 7. Acute urinary retention secondary to BPH -already on tamsulosin and eliot continue -plan for keith placement 8. Mild anemia -hemoglobin of 11 -baseline unknown -no evidence of bleeding currently 9. Transaminitis -mild with AST 94, ALT 78 -continue to trend daily 10. Positive COVID PCR -likely continued positive from previous infection -not indicated for remdesivir or dexamethasone currently -will monitor respiratory status closely but for now not requiring oxygen 11. Coagulopathy -INR of 3.0 on admission -etiology not clear -could be in setting of poor diet or hepatic transplant -trend daily IVF: none DIET: Regular DVT ppx: on full dose apixaban CODE: full, proxy is daughter Fatuma GIFFORD - Admit I confirm the patient?s Advance Care Plan is present, Code status is documented, Surrogate decision maker is in patient?s record [If Yes, STOP here]: Yes
[2021-01-18] MEDS: TAMSULOSIN 0.4 MG CAPSULE PO (20:51)
[2021-01-18] MEDS: APIXABAN 5 MG TABLET PO (20:51)
[2021-01-18] MEDS: HYDROCODONE/ACET 5/325 TABLET 1 TAB PO (22:44)
[2021-01-18] MEDS: diazePAM 5 MG TABLET 10 MG PO (22:45)
[2021-01-18] MEDS: MELATONIN 3 MG TABLET 6 MG PO (22:45)
[2021-01-18] MEDS: MYCOPHENOLATE SODIUM 360 MG 360 EACH PO (22:46)
[2021-01-19] VITALS (7 sets, daily range): BP systolic 106–137; BP diastolic 60–74; PULSE 81–102; RESP 16–20; TEMP 36.4–37; O2SAT 95–100
--- NOTE | 2021-01-19 00:12 | PC.NURSE ---
Evening Shift Note- Patient arrived to room via stretcher from ER. Slider board used to transfer patient to bed. Patient confused, and anxious. Condom cath accidentally pulled off as patient was trying to get out of bed. Helped patient get uip to BSC. New order recieved to place regular cath. 16Fr Cuevas placed. Patient tolerated well. Cuevas set to gravity to drain. Called patients daughter at home to do admit questions over the phone. Daughter ended up coming back in to bring patients antiviral medications in for patient, Admit questions done at that time. Medication list reviewed and updated. attempted to orient patient to bed and bed controls, and call leiva/TV remote. Patient will need frequent reorienting. Safety measures in place. Bed alarm activated. Call leiva and phone within reach. Will continue to monitor.
[2021-01-19] MEDS: METOPROLOL TARTRATE 5 MG/5 ML INJ IV (01:34)
[2021-01-19] MEDS: SODIUM CHLORIDE 0.9% FLUSH 10 ML IV ×5 (01:35→20:58)
--- NOTE | 2021-01-19 03:45 | PC.NURSE ---
Patient is oriented to self, birthdate, age, year and situation. Falls asleep intermittently during assessment but arouses easily. Breath sounds CTA with RA sat of 97%. HR irregular although 0000 telemetry reading was SR. CURRICUL[employer] DEVELOPMENT SPECIALIST did reports that around 0100 patient was going in/out of either SVT or rapid afib with rate as high as 160's. This lasted for about 30min and patient received IV Metoprolol (order received from [facility]) and rate is now in 80's. Denies nausea. BT hypoactive; abdomen is soft. Indwelling catheter is patent. Was unable to move himself in bed so repositioned onto right side but now noted to have turned himself back onto back. Did complain of bilateral shoulder/scapular pain with movement but then falling asleep and has FLACC of 0. Bilateral calf SCD's applied. CBG at 0000 was 114. On droplet/aerosolizing precautions due to being covid +. Fall risk score is high and bed alarm is activated.
[2021-01-19] MEDS: OXYCODONE IR 5 MG TABLET PO ×2 (04:56→17:32)
[2021-01-19 10:00] LABS: TSH w/ Reflex to FT4 1.15 uIU/mL (0.47-4.68)
--- NOTE | 2021-01-19 10:37 | DI.MRI.S_ITS ---
PROCEDURE: MR HEAD/BRAIN WO CON INDICATIONS: altered mental status, tremors TECHNIQUE: Non-contrast axial T1 spin echo, axial T2 fast spin echo, sagittal and axial FLAIR, coronal T2 fast spin echo, axial gradient echo, axial diffusion and ADC through the brain. COMPARISON: [facility], CT, CT HEAD/BRAIN WO CON, 01/18/2021, 9:18. FINDINGS: Image quality: Excellent. CSF spaces: Ventricles appear symmetric in size and shape. Basal cisterns are patent. No extra-axial fluid collections. Brain: No intracranial bleeds or mass effects. There is cerebral volume loss for age. There are very mild periventricular and deep white matter chronic small vessel ischemic changes. Brainstem appears normal. Diffusion-weighted images show no acute ischemic insults. No chronic ischemic insults. Normal intravascular flow voids are present. Skull and face: Calvarial bone marrow is normal in signal. Orbits are normal. Sinuses: Sinuses and mastoids are clear. IMPRESSION: Negative brain MRI for patient age. No evidence acute stroke, hemorrhage, or mass. Dictated by: Dexter Masterson M.D. on 01/19/2021 at 14:08 Approved by: Dexter Masterson M.D. on 01/19/2021 at 14:11
[2021-01-19] MEDS: dilTIAZem CD 180 MG CAP PO (10:48)
[2021-01-19] MEDS: MYCOPHENOLATE SODIUM 360 MG 360 EACH PO ×2 (10:48→20:58)
[2021-01-19] MEDS: ASPIRIN EC 81 MG TABLET PO (10:49)
[2021-01-19] MEDS: HYDROCODONE/ACET 5/325 TABLET 1 TAB PO (10:49)
[2021-01-19] MEDS: LEVOTHYROXINE 100 MCG TABLET PO (10:50)
[2021-01-19] MEDS: predniSONE 5 MG TABLET PO (10:50)
[2021-01-19] MEDS: TACROLIMUS 0.5 MG CAPSULE 1 MG PO (10:51)
[2021-01-19] MEDS: APIXABAN 5 MG TABLET PO (10:51)
[2021-01-19] MEDS: LORazepam 1 MG TABLET PO (10:51)
[2021-01-19 11:36] LABS: Tacrolimus 11.3 ng/mL (2.0-20.0)
--- NOTE | 2021-01-19 11:36 | PT-IP ANOTE ---
Physical therapy order received and chart reviewed. Spoke with his nurse to discuss his case. Pt is very sleepy this morning and not able to participate in physical therapy. Will check back this afternoon.
[2021-01-19 11:47] LABS: Add Manual Diff / Slide Review NO; Basophils Absolute Auto 100 /uL (0-100); Basophils Percent Auto 0.9 % (0-2); Eosinophils Absolute Auto 100 /uL (0-450); Eosinophils Percent Auto 0.9 % (2-4); Hematocrit 32.9 % (41-53); Hemoglobin 11.2 g/dL (13.5-17.5); Lymphocytes Absolute Auto 1400 /uL (1100-4500); Lymphocytes Percent Auto 16.1 % (25-40); Mean Corpuscular Hemoglobin 29.3 PG (26-34); Mean Corpuscular Volume 86.4 fL (80-100); Monocytes Absolute Auto 1300 /uL (0-900); Monocytes Percent Auto 15.3 % (3-14); Neutrophils Absolute Auto 5800 /uL (1500-7000); Neutrophils Percent Auto 66.8 % (50-75); Platelet Count 301 X10^3/uL (150-400); Red Blood Cell Count 3.81 X10^6/uL (4.5-5.9); Red Cell Distribution Width 13.7 % (11.6-14.8); White Blood Cell Count 8.7 X10^3/uL (4.5-11.0)
[2021-01-19 11:58] LABS: INR 3.3 (0.9-1.3); Prothrombin Time 38.8 SECONDS (10.1-12.7)
[2021-01-19 12:17] LABS: Alanine Aminotransferase 79 IU/L (<50); Albumin Globulin Ratio 0.9 (1.0-2.8); Alkaline Phosphatase 80 U/L (38-126); Aspartate Aminotransferase 71 IU/L (17-59); Bilirubin Total 1.3 mg/dL (0.2-1.3); Bilirubin Unconjugated 0.7 mg/dL (0.0-1.1); Globulin 3.2 g/dL (1.7-4.1); HEMOLYSIS < 15 (0-50); Total Protein 6.2 g/dL (6.3-8.2)
[2021-01-19 12:18] LABS: BUN Creatinine Ratio 12.5 (6-22); Blood Urea Nitrogen 11 mg/dL (9-20); Calcium 8.5 mg/dL (8.4-10.2); Carbon Dioxide 25 mmol/L (22-32); Chloride 106 mmol/L (98-107); Estimated Glomerular Filt Rate > 60.0 mL/min (>60); Glucose 115 mg/dL (80-110); HEMOLYSIS < 15 (0-50); Potassium 3.5 mmol/L (3.4-5.1); Sodium 137 mmol/L (137-145)
[2021-01-19 12:21] LABS: D Dimer 1000 ng/mL (<230)
--- NOTE | 2021-01-19 14:29 | PC.NURSE ---
Day shift: Pt off unit for MRI. Off tele and PARENT PARTNER aware.
--- NOTE | 2021-01-19 15:11 | PT-IP ANOTE ---
Manuel continues to be very sleepy this afternoon and not able to participate in therapy. Will try again tomorrow for physical therapy evaluation.
[2021-01-19] MEDS: PHYTONADIONE (VIT K1) 5 MG TABLET PO (15:24)
--- NOTE | 2021-01-19 15:57 | P.PN_ITS ---
Subjective Subjective Date Patient Seen: 01/19/21 Time Patient Seen: 08:58 Interval history: Today he states he feels cold, and he was trembling during exam. Otherwise he continues to complain of upper arm and shoulder pain which he describes as chronic. He still is confused. Exam Vital Signs (past 8 hours): - 01/19/21 09:00 01/19/21 10:34 01/19/21 11:42 Temperature 98.5 F Pulse Rate 102 H 93 H Respiratory Rate 18 18 Blood Pressure 127/67 Pulse Oximetry 100 97 01/19/21 13:45 Temperature 97.6 F Pulse Rate 101 H Respiratory Rate 16 Blood Pressure 106/71 Pulse Oximetry 100 Oxygen Delivery Method Room Air Oxygen Flow Rate 0 Narrative Exam Narrative: GEN: mild distress from pain in his shoulder, trembling, thin, alert HEENT: PERRL, moist mucous membranes NECK: no JVD, trachea midline HEART: Regular rate and rhythm with no murmurs LUNGS: lungs clear bilaterally ABD: bowels normal, soft, nondistended, nontender : no CVA tenderness MSK: Non-tender, no edema NEURO:confused, but no focal neuro deficits SKIN: no rashes noted Objective Labs Result Diagrams: 01/19/21 11:30 01/19/21 11:30 Labs: Laboratory Results - last 24 hr 01/18/21 01/18/21 01/18/21 09:45 11:30 13:50 WBC RBC Hgb Hct MCV MCH MCHC RDW Plt Count Neut % (Auto) Lymph % (Auto) [place] % (Auto) Eos % (Auto) Baso % (Auto) Neut # (Auto) Lymph # (Auto) [place] # (Auto) Eos # (Auto) Baso # (Auto) PT INR D-Dimer Cancelled Sodium Potassium Chloride Carbon Dioxide BUN Creatinine Estimated GFR BUN/Creatinine Ratio Glucose Calcium Total Bilirubin Conjugated Bilirubin Unconjugated Bilirubin AST ALT Alkaline Phosphatase Total Protein Albumin Globulin Albumin/Globulin Ratio TSH 1.15 Tacrolimus 11.3 01/19/21 01/19/21 01/19/21 11:30 11:30 11:30 WBC 8.7 RBC 3.81 L Hgb 11.2 L Hct 32.9 L MCV 86.4 MCH 29.3 MCHC 34.0 RDW 13.7 Plt Count 301 Neut % (Auto) 66.8 Lymph % (Auto) 16.1 L [place] % (Auto) 15.3 H Eos % (Auto) 0.9 L Baso % (Auto) 0.9 Neut # (Auto) 5800 Lymph # (Auto) 1400 [place] # (Auto) 1300 H Eos # (Auto) 100 Baso # (Auto) 100 PT INR D-Dimer Sodium 137 Potassium 3.5 Chloride 106 Carbon Dioxide 25 BUN 11 Creatinine 0.88 Estimated GFR > 60.0 BUN/Creatinine Ratio 12.5 Glucose 115 H Calcium 8.5 Total Bilirubin 1.3 Conjugated Bilirubin 0.0 Unconjugated Bilirubin 0.7 AST 71 H ALT 79 H Alkaline Phosphatase 80 Total Protein 6.2 L Albumin 3.0 L Globulin 3.2 Albumin/Globulin Ratio 0.9 L TSH Tacrolimus 01/19/21 11:30 WBC RBC Hgb Hct MCV MCH MCHC RDW Plt Count Neut % (Auto) Lymph % (Auto) [place] % (Auto) Eos % (Auto) Baso % (Auto) Neut # (Auto) Lymph # (Auto) [place] # (Auto) Eos # (Auto) Baso # (Auto) PT 38.8 H INR 3.3 H D-Dimer 1000 H Sodium Potassium Chloride Carbon Dioxide BUN Creatinine Estimated GFR BUN/Creatinine Ratio Glucose Calcium Total Bilirubin Conjugated Bilirubin Unconjugated Bilirubin AST ALT Alkaline Phosphatase Total Protein Albumin Globulin Albumin/Globulin Ratio TSH Tacrolimus PFSH Family History (Updated 01/18/21 @ 18:58 by Aaron Renae MD) Daughter Brain cancer Social History household members: children Smoking Status: Former smoker alcohol intake: never Assessment & Plan Assessment & Plan narrative: Mr. Beatty is a 65M with PMH of liver/kidney campbell splant on immunosuppressants, recent COVID infection, recent DVT who comes in with weakness and confusion. 1. Acute encephalopathy, probable metabolic -multiple possible etiologies -infection workup negative for pneumonia on imaging, negative for diverticulitis, negative for urinary infection -COVID positive, but not short of breath and not hypoxemic ----however could be having post Covid symptoms of confusion -also taking benzos, opiates, and marijuana which could be causing symptoms -CT head unremarkable -brain MRI ordered -tacro ordered by ED but drawn at random time, level >11, however will redraw for trough ----possible that elevated tacro dose may cause this -other consideration would be AJAY virus which could cause PML, MRI ordered as above 2. Atrial fibrillation with RVR, acute -noted to be in new afib in the ED -TSH normal -ECHO performed and showed small LV, EF 75-80%, hyperdynamic LV ----etiology unclear as patient with no significant anemia, normal TSH, no history of COPD, RV appears normal -already on anticoagulation for DVT with eliquis -received dilt IV in ED, and transitioned to oral diltiazem by ED, however dilt has interaction with tacro ----switching to metoprolol from diltiazem 3. Acute Pulmonary embolus -multiple noted on CTA of chest -patient had already been on eliquis and was taking medications per family -unclear why patient had treatment failure -may need to switch to lovenox if confirmed malignancy, or warfarin for drug level monitoring 4. Recent DVT -diagnosed prior to this admission -continue apixaban but with new PE plan to 5. s/p Liver/kidney transplant -ammonia normal -ordered prednisone, MMF, and tacro at home dose -tacro level ordered 5. s/p bilateral upper extremity amputation -has chronic pain -pain treated as below 6. Chronic pain with opiate, benzo dependence, and marijuana use -continue pain treatment with oxycodone -for benzos continue night dose of diazepam -try to avoid further medications to limit confusion 7. Acute urinary retention secondary to BPH -already on tamsulosin and eliot continue -keith placed with good urine output 8. Mild anemia -hemoglobin of 11 -baseline unknown -no evidence of bleeding currently 9. Transaminitis -mild with AST 94, ALT 78 on admission -continue to trend daily with slight improvement on 01/19 10. Positive COVID PCR -likely continued positive from previous infection -not indicated for remdesivir or dexamethasone currently -will monitor respiratory status closely but for now not requiring oxygen 11. Coagulopathy -INR of 3.0 on admission -etiology not clear -could be in setting liver transplant and liver dysfunction -repeat of 3.3 -d-dimer elevated, possibly from COVID -other possibility would be DIC, however platelets are normal ----acute DIC presents with thrombocytopenia, chronic may have normal platelets -also could be from nutritional deficiency, causing a low vitamin K IVF: none DIET: Regular DVT ppx: on full dose apixaban CODE: full, proxy is daughter Fatuma
--- NOTE | 2021-01-19 16:29 | DI.CT.S_ITS ---
PROCEDURE: CT ANGIO CHEST PE PROTOCOL INDICATIONS: tachycardia, sob TECHNIQUE: After the administration of intravenous contrast, 2 mm thick sections acquired from the pulmonary apices to the posterior costophrenic angles. 3-dimensional maximum intensity projection (MIP) coronal and sagittal reformats were then acquired through the thorax. For radiation dose reduction, the following was used: automated exposure control, adjustment of mA and/or kV according to patient size. COMPARISON: [facility], CT, CT ABDOMEN W CON, 01/16/2020, 13:05. [facility], CT, CT ABDOMEN PELVIS W CON, 01/18/2021, 17:28. FINDINGS: Image quality: Excellent. Pulmonary arteries: Pulmonary arteries are normal in size. Small nonocclusive acute pulmonary embolus in the right main pulmonary artery. Small nonocclusive thrombus present in the central portion the right upper lobe pulmonary artery. Occlusive thrombus in the posterior segment right upper lobe pulmonary artery. Lungs and pleura: Lungs are clear. No pleural effusions or pneumothorax. Central and peripheral airways are patent. Mediastinum: Heart size is normal, without pericardial effusion. Mild coronary artery calcifications. No mediastinal or hilar adenopathy. Thoracic aorta is normal in caliber and enhancement. Esophagus is normal in caliber, without hiatal hernia. There are benign-appearing calcifications adjacent to the supra hepatic portion the inferior vena cava, of uncertain etiology. Bones and chest wall: No suspicious bony lesions. Ribs and thoracic spine appear intact throughout. Thyroid gland is unremarkable as visualized. No axillary or supraclavicular adenopathy. Abdomen: Small shrunken bilateral [place] kidneys. Benign-appearing splenic calcifications. There is a possible duodenal bulb ulcer seen on the study from last night. There is also a questionable ampullary mass obstructing the common duct and pancreatic duct. Bilateral small shrunken [place] kidneys. IMPRESSION: 1. Small acute pulmonary emboli in the right main pulmonary artery and right upper lobe pulmonary artery. Occlusive pulmonary embolus in the posterior segment right upper lobe pulmonary artery. No evidence of right heart strain. 2. Suspect possible duodenal bulb ulcer. 3. Suspect possible ampullary mass obstructing the distal common duct and pancreatic duct. Comment: Consider MRCP with and without contrast. Comment: Findings were discussed with Dr. Aaron Renae at the time of study dictation on 01/19/2021 at 1654 hours [place] daylight time. Dictated by: Dexter Masterson M.D. on 01/19/2021 at 16:36 Approved by: Dexter Masterson M.D. on 01/19/2021 at 16:55
[2021-01-19] MEDS: SODIUM CHLORIDE 0.9% 500 ML 1000 ML IV (17:23)
--- NOTE | 2021-01-19 17:44 | DI.ECHO.S_ITS ---
[facility]---------+ [facility] +---------+ : : [address] : : [place], [place] : : : : [id number] : : : : Phone: [phone]+ Echocardiogram Report + + :Name: RANDALL STRINGER Study Date: 01/19/2021 Height: 69 in : :[facility] ReadingLocation: Weight: 170 lb : : Gender: Male BSA: 1.9 m2 : :: 1955 Age: 65 yrs BP: 106/71 mmHg: :Reason For Study: Atrial fibrillation : :Ordering Physician: Flaquito : :Hospitalist Performed By: Alix Moreno : :Referring: GAYLE GUTIERREZ : + + Interpretation Summary The study quality was technically limited. Most of the acoustic windows were suboptimal, but the best imaging was obtained from the subcostal window. The left ventricular cavity is small. The left ventricle is hyperdynamic. The ejection fraction is estimated to be 75-80%. Based on Doppler, no significant LV outflow tract obstruction. The right ventricle is grossly normal size. The right ventricular systolic function is normal. Not all the valves were well seen however no gross abnormalities seen. The IVC has a measurement of 23 mm. No sniff test performed due to patient being too sleepy to follow commands. Procedure: A two-dimensional transthoracic echocardiogram with color flow and Doppler was performed. The study quality was technically limited. Most of the acoustic windows were suboptimal, but the best imaging was obtained from the subcostal window. Comparison is made with the echocardiogram of 09/26/2008 (images only). No EKG data obtained due to limiting equipment brought into an Airborne Precaution room. Left Ventricle: The left ventricular cavity is small. Proximal septal thickening is noted. No obvious LV outflow tract obstruction. The ejection fraction is estimated to be 75-80%. The left ventricle is hyperdynamic. There are no obvious focal wall motion abnormalities noted but poor endocardial definition reduces the sensitivity for the detection of such. Diastolic function could not be accurately assessed due to unobtainable data. Right Ventricle: The right ventricle is grossly normal size. The right ventricular systolic function is normal. Atria: The left atrium is not well visualized. Right atrium not well visualized. There is no Doppler evidence for an interatrial shunt. Mitral Valve: There is mild mitral annular calcification. Mitral valve overall not well visualized. However no significant regurgitation or stenosis seen. Aortic Valve: The aortic valve is grossly normal. There is no aortic valve stenosis. Tricuspid Valve: The tricuspid valve is not well visualized, but is grossly normal. Pulmonary artery pressures cannot be estimated because of the lack of a measurable TR jet velocity. There is trace tricuspid regurgitation. Pulmonic Valve: The pulmonic valve is not well seen, but is grossly normal. Great Vessels: The aortic root is normal size. The ascending aorta could not be visualized. The IVC has a measurement of 23 mm. No sniff test performed due to patient being too sleepy to follow commands. Pericardium/ Pleura There is no pericardial effusion. MMode/2D Measurements & Calculations LVIDd: 4.4 cm LVOT diam: 2.4 cm IVSd: 1.2 cm Ao root diam: 3.5 cm LVPWd: 0.93 cm LV alfaro. diameter/BSA (cm/m^2): 2.3 IVC diam: 2.3 cm RVD1 (basal): 2.9 cm Doppler Measurements & Calculations Ao V2 max: 127.7 cm/sec LVOT Max Manolo: 107.4 cm/sec Ao V2 mean: 87.3 cm/sec LV V1 max P.6 mmHg Ao max P.5 mmHg LV V1 VTI: 21.6 cm Ao mean P.7 mmHg ANGIE(I,D): 4.4 cm2 Ao V2 VTI: 21.8 cm ANGIE(V,D): 3.8 cm2 sev ratio: 0.99 ANGIE indexed to BSA (cm^2/m^2): 2.3 MV E max manolo: 59.4 cm/sec PA V2 max: 86.7 cm/sec MV A max manolo: 67.4 cm/sec PA V2 mean: 63.7 cm/sec MV E/A: 0.88 PA mean P.7 mmHg Med Peak E' Manolo: 10.8 cm/sec PA pr(Accel): 63.6 mmHg E/E' med: 5.5 MV dec time: 0.25 sec SV(LVOT): 96.5 ml Reading Physician:04:17 PM
--- NOTE | 2021-01-19 18:01 | DI.MRI.S_ITS ---
PROCEDURE: MR ABDOMEN WO/W CON INDICATIONS: ?ampullary mass on CT abdomen at bo/cbd duct TECHNIQUE: Coronal HASTE, axial 2D FLASH in- and [id number]; axial breath-hold T2 FSE with fat saturation from the hepatic dome to the iliac crests. Oblique coronal thin-slice and radial thick slab HASTE through the biliary system. Dynamic axial VIBE during administration of contrast. Post-contrast coronal VIBE or 2D FLASH with fat saturation from the hepatic dome to the iliac crests. Optional diffusion weighted imaging and ADC may be performed. COMPARISON: [facility], CT, CT ABDOMEN PELVIS W CON, 01/18/2021, 17:28. FINDINGS: Image quality: Excellent. Pancreas and biliary system: There is a double duct sign with a dilated pancreatic duct and common bile duct extending to the same point with abrupt cutoff. 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 Pancreatic duct has a consisted caliber through its course in the body and tail and becomes more dilated in the head. There is minimal intrahepatic biliary ductal dilatation. Solid organs: Liver is normal in size and enhancement. Gallbladder is surgically absent. Spleen is normal in size and enhancement. No adrenal nodules. [place] kidneys are small and shrunken. Transplant kidney in the right lower quadrant. Nodes and vessels: No retroperitoneal or mesenteric adenopathy by size criteria. Aorta and inferior vena cava are normal in size. Bowel and peritoneum: Question duodenal bulb ulcer. Unenhanced bowel loops are normal in caliber throughout. No free fluid. Lung bases: No basal pleural effusions. Heart size is normal. Bones and soft tissues: No ventral hernias. Bone marrow is normal in overall signal. IMPRESSION: 1. A double duct sign with acute cutoff is suspicious for possible in flared carcinoma. 2. Findings suggest possible duodenal bulb ulcer. 3. No evidence of metastatic disease. Comment: Recommend ERCP. Dictated by: Dexter Masterson M.D. on 01/20/2021 at 14:40 Approved by: Dexter Masterson M.D. on 01/20/2021 at 15:01
[2021-01-19] MEDS: DORZOLAMIDE/TIMOLOL OPHTH 10 ML 1 DROPS EYE-BOTH (20:57)
[2021-01-19] MEDS: LATANOPROST 0.005% OPHTH 2.5 ML 1 DROPS EYE-BOTH (20:57)
[2021-01-19] MEDS: TACROLIMUS 0.5 MG CAPSULE PO (20:58)
[2021-01-19] MEDS: MELATONIN 3 MG TABLET 6 MG PO (20:58)
[2021-01-19] MEDS: diazePAM 5 MG TABLET 10 MG PO (20:58)
[2021-01-19] MEDS: TAMSULOSIN 0.4 MG CAPSULE PO (20:59)
[2021-01-19] MEDS: HEPARIN 5,000 UNIT/ML VIAL 5500 UNIT IV (21:36)
[2021-01-19] MEDS: PANTOPRAZOLE 40 MG VIAL IV (21:36)
[2021-01-19] MEDS: HEPARIN DRIP 25,000 UNIT/500 ML IV.SOLN 24 UNIT IV (21:37)
[2021-01-19 21:42] LABS: PTT Partial Thromboplastin Tim 38 SECONDS (26.4-36.2)
--- NOTE | 2021-01-19 21:47 | PC.NURSE ---
Shift note: Notified TAKE AWAY WORKER that patient has single lumen midline which is not compatible for serial PT's needed for heparin drip, notified coordinator as well. Due to patient's bilat upper extremity amputation has been a difficult blood draw and cannot do lower extremity lab draws d/t present DVT. Stat PICC placement orders placed. Heparin drip started at 1200 units/hr based on weight of 69kg, 5,500 bolus of heparin for a PT of 38. Notified TAKE AWAY WORKER of PT. Next PTT for 0330, will notify overnight babysitter nurse. Hard copy documentation started and in red folder. Heparin dosages and pump verified with second RN for safety.
[2021-01-20] VITALS (8 sets, daily range): BP systolic 102–133; BP diastolic 46–74; PULSE 81–90; RESP 12–20; TEMP 36.2–37.4; O2SAT 95–98
--- NOTE | 2021-01-20 01:50 | DI.RAD.S_ITS ---
PROCEDURE: XR CHEST FOR PICC 1V INDICATIONS: check for PICC placement COMPARISON: [facility], CR, XR CHEST 1V, 01/18/2021, 9:09. FINDINGS: PICC was placed by the intravenous therapy team from the right side. Fluoroscopic spot film demonstrates the tip of PICC projecting to the area of SVC right atrial junction. IMPRESSION: Tip of PICC projects to the area of SVC right atrial junction. Dictated by: Dexter Masterson M.D. on 01/20/2021 at 9:24 Approved by: Dexter Masterson M.D. on 01/20/2021 at 9:24
[2021-01-20] MEDS: OXYCODONE IR 5 MG TABLET PO ×3 (02:43→21:17)
--- NOTE | 2021-01-20 03:12 | PC.NURSE ---
Patient is oriented except to age, month and day of month. Breath sounds CTA with RA sat of 96%; denies SOB. HRR w/telemetry reading of SR. Denies nausea. BT present and reports he is passing flatus. Indwelling catheter is patent; urine is clear [place]. Is able to move self but lies mostly on back. Complains of bilateral shoulder pain and was medicated with Oxycodone. Percision PICC small business sales representative here earlier and placed double lumen PICC. Unsuccessful attempt left a bruise on left upper arm. 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 Is on heparin gtt at 24cc/h. Fall risk score is high and bed alarm is activated. Remains on droplet w/aerosolizing precautions due to being covid positive.
[2021-01-20] MEDS: SODIUM CHLORIDE 0.9% FLUSH 10 ML IV ×3 (03:29→21:00)
[2021-01-20 03:52] LABS: PTT Partial Thromboplastin Tim 50 SECONDS (26.4-36.2)
[2021-01-20 04:10] LABS: Hematocrit 28.7 % (41-53); Hemoglobin 9.7 g/dL (13.5-17.5); Mean Corpuscular HGB Conc 33.7 % (30-36); Mean Corpuscular Hemoglobin 29.1 PG (26-34); Mean Corpuscular Volume 86.3 fL (80-100); Platelet Count 295 X10^3/uL (150-400); Red Blood Cell Count 3.33 X10^6/uL (4.5-5.9); Red Cell Distribution Width 13.6 % (11.6-14.8); White Blood Cell Count 8.4 X10^3/uL (4.5-11.0)
[2021-01-20 04:15] LABS: INR 2.7 (0.9-1.3); Prothrombin Time 30.9 SECONDS (10.1-12.7)
[2021-01-20 04:18] LABS: D Dimer 852 ng/mL (<230)
[2021-01-20 04:18] LABS: BUN Creatinine Ratio 15.3 (6-22); Blood Urea Nitrogen 13 mg/dL (9-20); Calcium 8.5 mg/dL (8.4-10.2); Carbon Dioxide 27 mmol/L (22-32); Chloride 107 mmol/L (98-107); Estimated Glomerular Filt Rate > 60.0 mL/min (>60); Glucose 131 mg/dL (80-110); HEMOLYSIS < 15 (0-50); Potassium 3.5 mmol/L (3.4-5.1); Sodium 137 mmol/L (137-145)
[2021-01-20 04:19] LABS: Fibrinogen 552 mg/dL (211-428)
[2021-01-20] MEDS: HEPARIN 5,000 UNIT/ML VIAL 2000 UNIT IV (04:47)
[2021-01-20] MEDS: LEVOTHYROXINE 100 MCG TABLET PO (06:01)
--- NOTE | 2021-01-20 09:43 | PC.NURSE ---
Day shift: This bond writer told Pt in Afib 110 HR by BUSINESS SERVICES SALES AGENT. Dr Renae informed of this Afib. Pt to get AM meds. No new changes in care.
[2021-01-20] MEDS: predniSONE 5 MG TABLET PO (09:58)
[2021-01-20] MEDS: MYCOPHENOLATE SODIUM 360 MG 360 EACH PO ×2 (09:59→21:01)
[2021-01-20] MEDS: METOPROLOL IR 50 MG TABLET PO ×2 (09:59→21:00)
[2021-01-20] MEDS: TACROLIMUS 0.5 MG CAPSULE 1 MG PO (09:59)
--- NOTE | 2021-01-20 10:15 | PC.NURSE ---
Day shift: Pt off unit for MRI. Off tele and Heparin dripped stopped. Will place back on tele and drip when he returns.
[2021-01-20] MEDS: PANTOPRAZOLE 40 MG VIAL IV ×2 (10:20→21:00)
[2021-01-20 10:21] LABS: PTT Partial Thromboplastin Tim 40 SECONDS (26.4-36.2)
[2021-01-20] MEDS: DORZOLAMIDE/TIMOLOL OPHTH 10 ML 1 DROPS EYE-BOTH ×2 (10:22→20:59)
[2021-01-20] MEDS: HEPARIN 5,000 UNIT/ML VIAL 5000 UNIT IV (11:01)
--- NOTE | 2021-01-20 11:23 | PC.NURSE ---
Day shift: Heparin drip increased to 30mls an hour per protocol. Triple checked by this show card writer, DANIEL Diehl and CONCESSIONISTDANIEL Sexton. Redraw PTT ordered for 1700. Call light in reach.
--- NOTE | 2021-01-20 11:39 | CM.IDA ---
Initial DCP Assessment Note Patient is a 65 yo male, resident of [place]. 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 PCP: Rolf Pennington Payer: [facility] Reviewed chart. According to DANIEL Jaramillo, patient off the floor this morning for MRI, patient is quite ill; new PE found and started on Heparin drip. Placed call to Dtr/DPOA Maxine Hagen P# [phone], introduced SW role. Dtr extremely defensive, this WINE BLENDER unsure why. Multiple reattempts to start over to help clarify role of social director. According to our conversation: Patient lives w/dtr Maxine, her , and their 17 yo son and 13 yo dtr. Maxine describes herself as a seasonal worker and will not have to return to work until May. Maxine's spouse is a stay at home father and also able to assist in patient's care as needed. Maxine plans to transport patient back home when medically stable and feels she has a lot of support to do so. Maxine states she has helped her Dad since she was 15 yo. Patient has been very indp and active, drives himself and others, completes most ADLs indp. Maxine assists w/cooking, cleaning and chores. Since patient does not have either of his hands, he asks for help w/washing hair, zipping up clothing, and other tasks that require fine motor skills/fingers. Maxine is agreeable to Home health if suggested by the doctor, no agency preference. Patient had a wound vac on his abdomen approx. 13 years ago and had weekly assistance from a HH RN. Plan: DC likely back home w/supportive family to assist, r/o need for HH. DCP team will follow closely for coordination of any DC needs that arise. ARSENIO Andrews Discharge Planning/Care Management CM Discharge Assessment Start: 01/20/21 11:34 Freq: Status: Active Protocol: Document 01/20/21 11:34 SHAMIKA (Rec: 01/20/21 11:39 [id number]) Discharge Planning Assessment Assigned Category Specialist ARSENIO Low DPOA/Assigned Designee Name Maxine Hagen dtr Contact Information [phone] Advance Directives? No History Provided By Family Member Prior Living Arrangements House Household Members family,children Type of transporation used prior to Drives own vehicle admit Independent with ADL's Yes Is patient alert and oriented? Yes Needs Assistance With Meal Prep,Managing Medications ,Home Chores / Shopping Patient/Family Preference Home with Home Health Barriers to Discharge No Comment Medical POC still unfolding Discharge Plan Home Transportation Arrangement Family
--- NOTE | 2021-01-20 14:53 | PT-IP ANOTE ---
Pt continues to be somnolent today and unable to meaningfully participate with PT. Will follow up again in the morning.
--- NOTE | 2021-01-20 15:41 | PC.NURSE ---
Addendum entered by Gema Mistry R.N. 01/20/21 17:02: Lab called with critical PTT of 89 but therapeutic for heparin drip that was discontinued. Original Note: Shift note: Notified hospitalist of patient's low urine output of 175ml on day shift and 200ml on night stocker, with day shift nurse. Dr Renae acknowledge and gave no new orders.
[2021-01-20 16:48] LABS: PTT Partial Thromboplastin Tim 89 SECONDS (26.4-36.2)
--- NOTE | 2021-01-20 19:59 | P.PN_ITS ---
Subjective Subjective Date Patient Seen: 01/20/21 Time Patient Seen: 08:59 Interval history: Today he is less confused. His pain is improved. He has minimal shoulder pain. He has no abdominal pain. He has no shortness of breath. Exam Vital Signs (past 8 hours): - 01/20/21 15:35 Temperature 98.1 F Pulse Rate 81 Respiratory Rate 14 Blood Pressure 105/46 L Pulse Oximetry 97 Oxygen Delivery Method Room Air Oxygen Flow Rate 0 Narrative Exam Narrative: GEN: mild distress from pain in his shoulder, trembling, thin, alert HEENT: PERRL, moist mucous membranes NECK: no JVD, trachea midline HEART: Regular rate and rhythm with no murmurs LUNGS: lungs clear bilaterally ABD: bowels normal, soft, nondistended, nontender : no CVA tenderness MSK: Non-tender, no edema NEURO:confused, but no focal neuro deficits SKIN: no rashes noted Objective Labs Result Diagrams: 01/20/21 03:52 01/20/21 03:34 Labs: Laboratory Results - last 24 hr 01/19/21 01/20/21 01/20/21 21:20 03:34 03:34 WBC RBC Hgb Hct MCV MCH MCHC RDW Plt Count PT INR APTT 38 H 50 H D Fibrinogen D-Dimer Sodium 137 Potassium 3.5 Chloride 107 Carbon Dioxide 27 BUN 13 Creatinine 0.85 Estimated GFR > 60.0 BUN/Creatinine Ratio 15.3 Glucose 131 H Calcium 8.5 01/20/21 01/20/21 01/20/21 03:52 03:52 09:45 WBC 8.4 RBC 3.33 L Hgb 9.7 L Hct 28.7 L MCV 86.3 MCH 29.1 MCHC 33.7 RDW 13.6 Plt Count 295 PT 30.9 H D INR 2.7 H APTT Cancelled 40 H D Fibrinogen 552 H D-Dimer 852 H Sodium Potassium Chloride Carbon Dioxide BUN Creatinine Estimated GFR BUN/Creatinine Ratio Glucose Calcium 01/20/21 15:56 WBC RBC Hgb Hct MCV MCH MCHC RDW Plt Count PT INR APTT 89 H* D Fibrinogen D-Dimer Sodium Potassium Chloride Carbon Dioxide BUN Creatinine Estimated GFR BUN/Creatinine Ratio Glucose Calcium PFSH Family History (Updated 01/18/21 @ 18:58 by Aaron Renae MD) Daughter Brain cancer Social History household members: family and children Smoking Status: Former smoker alcohol intake: never Assessment & Plan Assessment & Plan narrative: Mr. 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 Arriola (GI) and Dr. Carrillo (hospitalist) who agree patient would benefit from transfer and possible ERCP or EUS, will try to facilitate transfer to [facility] -ordered CEA level 2. Acute encephalopathy, probable metabolic, improving -multiple possible etiologies -infection workup negative for pneumonia on imaging, negative for diverticulitis, negative for urinary infection -COVID positive, but not short of breath and not hypoxemic ----however could be having post Covid symptoms of confusion -also taking benzos, opiates, and marijuana whichn are most likely cause of symptoms -CT head unremarkable -brain MRI showed no acute process -tacro ordered by ED but drawn at random time, level >11, however will redraw for true trough, but unlikely tacro would cause this -other consideration was AJAY virus as patient s/p transplant which could cause PM L, but MRI with no evidence of this 3. Atrial fibrillation with RVR, acute -noted to be in new afib in the ED -TSH normal -ECHO performed and showed small LV, EF 75-80%, hyperdynamic LV ----etiology unclear as patient with no significant anemia, normal TSH, no history of COPD, RV appears normal -on anticoagulation for VTE with lovenox -received dilt IV in ED, and transitioned to oral diltiazem by ED, however dilt has interaction with tacro ----switched to metoprolol from diltiazem 3. Acute Pulmonary embolus -multiple noted on CTA of chest, no evidence of any RV strain -patient had already been on eliquis and was taking medications per family, unclear why patient had treatment failure -possibly failed in setting of probable malignancy, will switch to lovenox 70U BID 4. Recent DVT, right leg -diagnosed prior to this admission -continue apixaban but with new PE plan to 5. s/p Liver/kidney transplant, liver transplant was in and then again 94 from hep C, kidney transplant in 2009 reportedly due to atenolol/cyclosporine -ammonia normal -ordered prednisone, MMF, and tacro at home dose -tacro level ordered for trough 5. 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 Chronic pain with opiate, benzo dependence, and marijuana use -continue pain treatment with oxycodone -for benzos continue night dose of diazepam -try to avoid further medications to limit confusion 7. Acute urinary retention secondary to BPH, possibly worsened due to pain medications -already on tamsulosin and eliot continue -keith placed with good urine output 8. Mild anemia -hemoglobin of 11, now dropped to 9.7 -baseline unknown -no evidence of bleeding currently, but monitor closely 9. Transaminitis -mild with AST 94, ALT 78 on admission -continue to trend daily with slight improvement to 70s -repeat again AM of 01/21 due to MRI findings 10. Positive COVID PCR -likely continued positive from previous infection -not indicated for remdesivir or dexamethasone currently as not requiring oxygen -will monitor respiratory status closely but for now not requiring oxygen 11. Coagulopathy -INR of 3.0 on admission -etiology not clear -could be in setting liver transplant and liver dysfunction -repeat of 2.7 -d-dimer elevated, possibly from COVID -other possibility would be DIC, however platelets are normal ----acute DIC presents with thrombocytopenia, chronic may have normal platelets, fibrinogen elevated so probably unlikely -also could be from nutritional deficiency -trend daily IVF: none DIET: Regular DVT ppx: on full dose apixaban CODE: full, proxy is daughter Fatuma
[2021-01-20] MEDS: TAMSULOSIN 0.4 MG CAPSULE PO (20:59)
[2021-01-20] MEDS: LATANOPROST 0.005% OPHTH 2.5 ML 1 DROPS EYE-BOTH (20:59)
[2021-01-20] MEDS: TACROLIMUS 0.5 MG CAPSULE PO (21:00)
[2021-01-20] MEDS: ENOXAPARIN 80 MG/0.8 ML SYRINGE 70 MG SUBCUT (21:00)
[2021-01-20] MEDS: diazePAM 5 MG TABLET 10 MG PO (21:00)
[2021-01-20] MEDS: MELATONIN 3 MG TABLET 6 MG PO (21:00)
[2021-01-21] VITALS (10 sets, daily range): BP systolic 112–139; BP diastolic 65–87; PULSE 74–89; RESP 12–20; TEMP 36.6–37.2; O2SAT 95–99
[2021-01-21] MEDS: SODIUM CHLORIDE 0.9% 1,000 ML 100 ML IV ×2 (00:21→18:17)
[2021-01-21 06:26] LABS: Hematocrit 28.2 % (41-53); Hemoglobin 9.5 g/dL (13.5-17.5); Mean Corpuscular HGB Conc 33.8 % (30-36); Mean Corpuscular Hemoglobin 29.5 PG (26-34); Mean Corpuscular Volume 87.3 fL (80-100); Platelet Count 277 X10^3/uL (150-400); Red Blood Cell Count 3.23 X10^6/uL (4.5-5.9); Red Cell Distribution Width 13.3 % (11.6-14.8); White Blood Cell Count 7.1 X10^3/uL (4.5-11.0)
[2021-01-21 06:36] LABS: Alanine Aminotransferase 56 IU/L (<50); Albumin 2.5 g/dL (3.5-5.0); Albumin Globulin Ratio 0.9 (1.0-2.8); Alkaline Phosphatase 69 U/L (38-126); Aspartate Aminotransferase 45 IU/L (17-59); BUN Creatinine Ratio 15.8 (6-22); Bilirubin Total 0.5 mg/dL (0.2-1.3); Bilirubin Unconjugated 0.3 mg/dL (0.0-1.1); Blood Urea Nitrogen 15 mg/dL (9-20); Calcium 8.2 mg/dL (8.4-10.2); Carbon Dioxide 25 mmol/L (22-32); Chloride 108 mmol/L (98-107); Estimated Glomerular Filt Rate > 60.0 mL/min (>60); Globulin 2.9 g/dL (1.7-4.1); Glucose 92 mg/dL (80-110); HEMOLYSIS < 15 (0-50); Potassium 3.8 mmol/L (3.4-5.1); Sodium 136 mmol/L (137-145); Total Protein 5.4 g/dL (6.3-8.2)
[2021-01-21 07:06] LABS: Carcinoembryonic Antigen 4.6 ng/mL (0.1-3.0)
[2021-01-21 07:31] LABS: INR 1.9 (0.9-1.3); Prothrombin Time 21.9 SECONDS (10.1-12.7)
[2021-01-21] MEDS: DORZOLAMIDE/TIMOLOL OPHTH 10 ML 1 DROPS EYE-BOTH (08:22)
[2021-01-21] MEDS: MYCOPHENOLATE SODIUM 360 MG 360 EACH PO ×2 (08:23→20:09)
[2021-01-21] MEDS: PANTOPRAZOLE 40 MG VIAL IV (08:25)
[2021-01-21] MEDS: ENOXAPARIN 80 MG/0.8 ML SYRINGE 70 MG SUBCUT ×2 (08:25→20:09)
[2021-01-21] MEDS: SODIUM CHLORIDE 0.9% FLUSH 10 ML IV (08:26)
[2021-01-21] MEDS: METOPROLOL IR 50 MG TABLET PO ×2 (08:26→20:10)
[2021-01-21] MEDS: TACROLIMUS 0.5 MG CAPSULE 1 MG PO (08:26)
[2021-01-21] MEDS: predniSONE 5 MG TABLET PO (08:26)
[2021-01-21] MEDS: OXYCODONE IR 5 MG TABLET PO ×2 (08:33→20:10)
--- NOTE | 2021-01-21 10:20 | PT.IIE ---
Current Diagnoses Metabolic encephalopathy (01/19/21) Physical Therapy Inpatient Evaluation/Re-Eval M1 PT/OT-IP Prior Functional Status Start: 01/20/21 08:30 Freq: NEEDED Status: Active Protocol: Document 01/21/21 10:20 AW (Rec: 01/21/21 12:21 AW [id number]) Medical Review Prior Functional Status Medical History Reviewed Yes Communication Pt is able to make his needs known. Mobility and Gait Independent without AD for household and short distance community ambulation. Activities of Daily Living and IADL's Independent at baseline, including driving. 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 He uses prostheses at home. He has chronic B shoulder pain. Social History Household Members family,children Living Arrangements House Number of Floors (Floors) Two Floors Number of Stairs To Enter/Railing? Level entrance. Pt stays on entry level civil engineer. Home Environment Standard Height Toilet,Walk in Shower,Built-In Shower Seat, Bidet Additional Social History Comment Pt has an adjustable bed. He lives with his daughter, son-in-law, and teenaged grandchildren. He typically assists the children get to school and enjoys going to their recitals M2 PT-IP Current Condition Start: 01/20/21 08:30 Freq: NEEDED Status: Active Protocol: Document 01/21/21 10:20 AW (Rec: 01/21/21 12:21 AW [id number]) Physical Therapy Current Condition Current Condition Evaluation Date 01/21/21 Treatment Diagnosis enephalopathy; a fib with RVR; difficulty in walking Onset Date 01/18/21 Precautions Other Precautions COVID (+) precautions M3 PT-IP Subjective Start: 01/20/21 08:30 Freq: NEEDED Status: Active Protocol: Document 01/21/21 10:20 AW (Rec: 01/21/21 12:21 AW [id number]) Subjective Physical Therapy Visit Type Type Initial Evaluation Visit Start Time 09:45 Visit Stop Time 10:20 Total Visit Minutes 35 Notes Pt has his prostheses in the room but states he does not need to use them for mobility. Physical Therapy Visit Comments Patient Comments Pt is sleepy but willing to participate with PT Patient Goals Return home with family support. Therapy Pain Assessment Pain When Pain Assessed During Mobility Pain Present Pain Present Pain Reported Location Shoulders Scale Used not quantified Pain Management Techniques Distraction M4 PT-IP Mobility and Gait Start: 01/20/21 08:30 Freq: NEEDED Status: Active Protocol: Document 01/21/21 10:20 AW (Rec: 01/21/21 12:21 AW [id number]) PT-Bed Mobility Assessment Supine to Sit Supine to Sit Minimal Assistance,1 Person Assistance PT-Transfer Assessment Sit to and From Stand Sit to and from Stand Contact Guard Assistance, Minimal Assistance Equipment Transfer Assistive Device Gait Belt Orthotic/Prosthetic Devices or Brace: No Transfers Transfer Destination Chair,Toilet Transfer Technique Stand Step Pivot Transfer Ability Level of Assist Contact Guard Assistance Comments Mobility Comments Pt was reclined in the bed as PT arrived. He needed min assist to right his trunk during supine to sit. He stood from the bed with initial unsteadiness, needing CGA to min assist for balance recovery. He ambulated to the toilet CGA and transferred with use of right side grab bar CGA. He was unable to have a bowel movement, so stood from the toilet CGA and ambulated around the room with CGA and assist for IV pole management before agreeing to sit up on the chair, transferring SBA. Pt was positioned on the chair with call light and tray table in reach. Gait Assessment Gait Gait Assistance Required: Contact Guard Assist Distance (Feet) 30 Assistive Devices Assistive Device Gait Belt Orthotic/Prosthetic Devices or Brace: No Gait Deviations General Gait Pattern Decreased Stride Length, Decreased Feet Clearance, Flexed Trunk Factors Limiting Gait Function Factors Limiting Gait Function Decreased Activity Tolerance, Decreased Strength,Poor Balance,Poor Safety Awareness Comments Gait Comments Pt is slightly impulsive, needing cues to slow down and wait for assist with lines. Stair Climbing Assessment Comments Stair Climbing Comments Not assessed. Pt does not need to navigate stairs at home. PT-Balance Assessment Sitting Balance and Reactions Static Sitting Balance Ability Good Dynamic Sitting Balance Ability Fair Standing Balance and Reactions Static Standing Balance Ability Poor Dynamic Standing Balance Ability Poor Device Used no AD M5 PT-IP Objective Assessments Start: 01/20/21 08:30 Freq: NEEDED Status: Active Protocol: Document 01/21/21 10:20 AW (Rec: 01/21/21 12:21 AW [id number]) Orientation Orientation/Cognition Level of Alertness Alert Orientation Name,Place,Situation Language Function Ability No Deficits Noted Safety Awareness Decreased Safety Awareness Gross Range of Motion Lower Extremity ROM Assessment Bilaterally Impaired Impairments slight knee flexion contracture bilaterally Strength Lower Extremity Strength Assessment Bilaterally Impaired Hip 3+/5 Knee 4-/5 Ankle 4-/5 Sensation Assessment Comments Sensation Comments Pt reports no sensation disturbance but may be a poor historian. M6 PT-IP Treatment Start: 01/20/21 08:30 Freq: NEEDED Status: Active Protocol: Document 01/21/21 10:20 AW (Rec: 01/21/21 12:21 AW [id number]) Physical Therapy Treatment Education Education Provided Safety M7 PT-IP Assessment and Plan Start: 01/20/21 08:30 Freq: NEEDED Status: Active Protocol: Document 01/21/21 10:20 AW (Rec: 01/21/21 12:21 AW [id number]) PT Summary Assessment and Plan Potential Rehabilitation Potential Good Status of Condition at Evaluation Evolving Summary Impairments Pain,ROM,Strength,Balance, Cognition,Bed Mobility, Transfers,Gait,Activity Tolerance Assessment Summary Manuel is a 65 yo man admitted with acute metabolic encephalopathy and recent COVID infection who still tests positive. 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 He reports independent mobility at home. Since recent COVID infection, pt has had decreased activity tolerance and strength which is evident on exam. His balance is poor, affecting his mobility independence. Depending on progress, pt may need SNF rehab before returning home. If pt refuses or can not be placed, home with assist and home health would be recommended. Goals Bed Mobility Goal Independent Transfer Goal Independent Gait Goal Independent Gait Distance 100 Days to Meet Goals 10 Frequency of Treatment Frequency Of Treatment Once a Day Treatment Plan Physical Therapy Treatment Plan Bed Mobility Training,Transfer Training,Gait Training, Therapeutic Exercise,Balance Retraining,Discharge Planning Other Recommendations and Next Treatment balance and endurance training Focus Precautions Other Precautions COVID (+) precautions Recommendations To Nursing Amount of Assist Needed 1 Person Assist Discharge Recommendations PT Discharge Recommendations Home vs SNF Other Discharge Recommendations HH if going home with assist Transportation Needs at Discharge Private Vehicle,Wheelchair/ Cabulance
--- NOTE | 2021-01-21 11:04 | CM.DPC ---
DCP/continued: Reviewed chart. Per provider/Dr. Jones patient will be transferring to when bed available. P: Transfer to higher level of care when bed available. ARSENIO Ricks
--- NOTE | 2021-01-21 16:20 | P.PN_ITS ---
Subjective Subjective Date Patient Seen: 01/21/21 Time Patient Seen: 16:21 Interval history: Today he is less confused. His pain is improved. He has minimal shoulder pain. He has no abdominal pain. He has no shortness of breath. Exam Vital Signs (past 8 hours): - 01/21/21 09:10 01/21/21 09:37 01/21/21 13:00 Temperature 98 F Pulse Rate 88 Respiratory Rate 16 Blood Pressure 130/77 Pulse Oximetry 96 95 95 Oxygen Delivery Method Room Air Oxygen Flow Rate 0 Narrative Exam Narrative: GEN: thin, alert, no acute distress, appears comfortable HEENT: PERRL, moist mucous membranes NECK: no JVD, trachea midline HEART: Regular rate and rhythm with no murmurs LUNGS: lungs clear bilaterally ABD: bowels normal, soft, nondistended, nontender : no CVA tenderness MSK: Non-tender, no edema NEURO:no focal neuro deficits, appears more alert. SKIN: no rashes noted Objective Labs Result Diagrams: 01/21/21 06:05 01/21/21 06:05 Labs: Laboratory Results - last 24 hr 01/20/21 01/21/21 01/21/21 15:56 06:05 06:05 WBC 7.1 RBC 3.23 L Hgb 9.5 L Hct 28.2 L MCV 87.3 MCH 29.5 MCHC 33.8 RDW 13.3 Plt Count 277 PT INR APTT 89 H* D Sodium Potassium Chloride Carbon Dioxide BUN Creatinine Estimated GFR BUN/Creatinine Ratio Glucose Calcium Total Bilirubin Conjugated Bilirubin Unconjugated Bilirubin AST ALT Alkaline Phosphatase Total Protein Albumin Globulin Albumin/Globulin Ratio Carcinoembryonic Ag 4.6 H 01/21/21 01/21/21 06:05 06:05 WBC RBC Hgb Hct MCV MCH MCHC RDW Plt Count PT 21.9 H D INR 1.9 H APTT Sodium 136 L Potassium 3.8 Chloride 108 H Carbon Dioxide 25 BUN 15 Creatinine 0.95 Estimated GFR > 60.0 BUN/Creatinine Ratio 15.8 Glucose 92 Calcium 8.2 L Total Bilirubin 0.5 Conjugated Bilirubin 0.0 Unconjugated Bilirubin 0.3 AST 45 ALT 56 H Alkaline Phosphatase 69 Total Protein 5.4 L Albumin 2.5 L Globulin 2.9 Albumin/Globulin Ratio 0.9 L Carcinoembryonic Ag PFS Family History (Updated 01/18/21 @ 18:58 by Aaron Renae MD) Daughter Brain cancer Social History household members: family and children Smoking Status: Former smoker alcohol intake: never Assessment & Plan Assessment & Plan narrative: Mr. 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 Arriola (GI) and Dr. Carrillo (hospitalist) who agree patient woul d benefit from transfer and possible ERCP or EUS, patient has been accepted but currently no bed availability. -ordered CEA level which was 4.6 2. Acute encephalopathy, probable metabolic, improving -multiple possible etiologies -infection workup negative for pneumonia on imaging, negative for dive rticulitis, negative for urinary infection -COVID positive, but not short of breath and not hypoxemic ----however could be having post Covid symptoms of confusion -also taking benzos, opiates, and marijuana which are most likely cause of symptoms -CT head unremarkable -brain MRI showed no acute process -tacro ordered by ED but drawn at random time, level >11, however will redraw for true trough, but unlikely tacro would cause this -other consideration was AJAY virus as patient s/p transplant which could cause PML, but MRI with no evidence of this 3. Atrial fibrillation with RVR, acute -noted to be in new afib in the ED -TSH normal -ECHO performed and showed small LV, EF 75-80%, hyperdynamic LV ----etiology unclear as patient with no significant anemia, normal TSH, no history of COPD, RV appears normal -on anticoagulation for VTE with lovenox -received dilt IV in ED, and transitioned to oral diltiazem by ED, however dilt has interaction with tacro ----switched to metoprolol from diltiazem and is currently rate controlled. 3. Acute Pulmonary embolus -multiple noted on CTA of chest, no evidence of any RV strain -patient had already been on eliquis and was taking medications per family, unclear why patient had treatment failure -possibly failed in setting of probable malignancy, patient was switched to lovenox 70U BID, will continue given possible procedure planned. 4. Recent DVT, right leg -diagnosed prior to this admission -continue apixaban but with new PE plan to 5. s/p Liver/kidney transplant, liver transplant was in and then again 94 from hep C, kidney transplant in 2009 reportedly due to atenolol/cyclosporine -ammonia normal -ordered prednisone, MMF, and tacro at home dose -tacro level ordered for trough 5. 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 Chronic pain with opiate, benzo dependence, and marijuana use -continue pain treatment with oxycodone -for benzos continue night dose of diazepam -try to avoid further medications to limit confusion 7. Acute urinary retention secondary to BPH, possibly worsened due to pain medications -already on tamsulosin and eliot continue -keith placed with good urine output -will attempt trial of void tomorrow if stable. 8. Mild anemia -hemoglobin of 11, now dropped to 9.7 -baseline unknown -no evidence of bleeding currently, but monitor closely 9. Transaminitis -mild with AST 94, ALT 78 on admission -continue to trend daily with slight improvement to 70s given MRI findings. 10. Positive COVID PCR -likely continued positive from previous infection -not indicated for remdesivir or dexamethasone currently as not requiring oxygen -will monitor respiratory status closely but for now not requiring oxygen 11. Coagulopathy -INR of 3.0 on admission -etiology not clear -could be in setting liver transplant and liver dysfunction -repeat of 2.7 -d-dimer elevated, possibly from COVID -other possibility would be DIC, however platelets are normal ----acute DIC presents with thrombocytopenia, chronic may have normal platelets, fibrinogen elevated so probably unlikely -also could be from nutritional deficiency -trend daily IVF: none DIET: Regular DVT ppx: on full dose apixaban CODE: full, proxy is daughter Fatuma Dispo: unclear, plan for transfer to for EUS or ERCP evaluation given his transplant history.
--- NOTE | 2021-01-21 17:15 | PC.NURSE ---
Addendum entered by Mary Serrano R.N. 01/21/21 21:18: Picc line drsg changed per hospital protocol. Tegaderm for picc line was wrapped around midline. Midline got accidentally removed. Addendum entered by Mary Serrano R.N. 01/21/21 19:14: Patient up in chair for dinner, then back to bed. Has been A&O, calm and cooperative. No confusion noted this shift. Original Note: Called patients daughter Maxine, regarding patients anti-rejection meds that need to be refilled by Thursday. She stated that if he dosent get transferred then she will be in Thursday evening with his meds.
[2021-01-21] MEDS: PANTOPRAZOLE DR 40 MG TABLET PO (20:10)
[2021-01-21] MEDS: TACROLIMUS 0.5 MG CAPSULE PO (20:10)
[2021-01-21] MEDS: MELATONIN 3 MG TABLET 6 MG PO (20:10)
[2021-01-21] MEDS: TAMSULOSIN 0.4 MG CAPSULE PO (20:10)
[2021-01-21] MEDS: diazePAM 5 MG TABLET 10 MG PO (20:11)
[2021-01-21] MEDS: LATANOPROST 0.005% OPHTH 2.5 ML 1 DROPS EYE-LEFT (20:13)
[2021-01-22] VITALS (8 sets, daily range): BP systolic 128–138; BP diastolic 77–87; PULSE 74–80; RESP 17–18; TEMP 36.6–36.9; O2SAT 94–99; BMI 23.3
[2021-01-22] MEDS: FINASTERIDE 5 MG TABLET PO (01:29)
[2021-01-22] MEDS: SODIUM CHLORIDE 0.9% 1,000 ML 100 ML IV (03:37)
[2021-01-22] MEDS: LEVOTHYROXINE 100 MCG TABLET PO (06:16)
[2021-01-22] MEDS: DORZOLAMIDE/TIMOLOL OPHTH 10 ML 1 DROPS EYE-LEFT ×2 (09:43→11:30)
[2021-01-22] MEDS: MYCOPHENOLATE SODIUM 360 MG 360 EACH PO ×2 (09:44→20:24)
[2021-01-22] MEDS: SODIUM CHLORIDE 0.9% FLUSH 10 ML IV ×2 (09:46→20:22)
[2021-01-22] MEDS: PANTOPRAZOLE DR 40 MG TABLET PO ×2 (09:52→20:24)
[2021-01-22] MEDS: TACROLIMUS 0.5 MG CAPSULE 1 MG PO (09:53)
[2021-01-22] MEDS: METOPROLOL IR 50 MG TABLET PO ×2 (09:53→20:24)
[2021-01-22] MEDS: predniSONE 5 MG TABLET PO (09:53)
[2021-01-22] MEDS: OXYCODONE IR 5 MG TABLET PO ×2 (09:53→20:25)
[2021-01-22] MEDS: ENOXAPARIN 80 MG/0.8 ML SYRINGE 70 MG SUBCUT ×2 (09:53→20:24)
[2021-01-22 10:20] LABS: Hematocrit 26.4 % (41-53); Hemoglobin 8.8 g/dL (13.5-17.5); Mean Corpuscular HGB Conc 33.3 % (30-36); Mean Corpuscular Volume 87.2 fL (80-100); Platelet Count 257 X10^3/uL (150-400); Red Blood Cell Count 3.03 X10^6/uL (4.5-5.9); Red Cell Distribution Width 12.9 % (11.6-14.8); White Blood Cell Count 5.6 X10^3/uL (4.5-11.0)
[2021-01-22 10:21] LABS: Add Manual Diff / Slide Review YES
[2021-01-22 10:30] LABS: Alanine Aminotransferase 42 IU/L (<50); Albumin 2.2 g/dL (3.5-5.0); Albumin Globulin Ratio 0.8 (1.0-2.8); Alkaline Phosphatase 58 U/L (38-126); Aspartate Aminotransferase 35 IU/L (17-59); BUN Creatinine Ratio 11.5 (6-22); Bilirubin Total 0.5 mg/dL (0.2-1.3); Bilirubin Unconjugated 0.3 mg/dL (0.0-1.1); Blood Urea Nitrogen 9 mg/dL (9-20); Calcium 7.6 mg/dL (8.4-10.2); Carbon Dioxide 21 mmol/L (22-32); Chloride 114 mmol/L (98-107); Estimated Glomerular Filt Rate > 60.0 mL/min (>60); Globulin 2.8 g/dL (1.7-4.1); Glucose 104 mg/dL (80-110); HEMOLYSIS < 15 (0-50); Magnesium 1.2 mg/dL (1.6-2.3); Potassium 3.2 mmol/L (3.4-5.1); Sodium 138 mmol/L (137-145)
[2021-01-22 10:43] LABS: Neutrophils Absolute Manual 3192 /uL (3000-5900); Total Cells Counted 100
[2021-01-22 10:45] LABS: RBC Morphology Normal Morphology
[2021-01-22] MEDS: POTASSIUM CHLORIDE 20 MEQ TAB 40 MEQ PO (11:18)
[2021-01-22] MEDS: MAGNESIUM SULFATE 2 GM/50 ML PIGGYBACK IV (11:18)
--- NOTE | 2021-01-22 12:51 | PC.NURSE ---
Day shift: This teletypewriter installer talked w/ Pt's daughter today and she is bringing in some of Pt's home meds. She is concerned that she wont get those meds back. Pharmacist Theodore informed that home meds are not to be sent with Pt but to be picked up by daughter/family member.
--- NOTE | 2021-01-22 15:28 | P.PN_ITS ---
Subjective Subjective Date Patient Seen: 01/22/21 Time Patient Seen: 15:28 Interval history: Today he is less confused but quite fatigued today. His pain is improved. He has minimal shoulder pain. He has no abdominal pain. He has no shortness of breath. Still pending transfer to [facility] for further ERCP / EUS. Exam Vital Signs (past 8 hours): - 01/22/21 08:51 01/22/21 09:00 01/22/21 13:49 Temperature 98.4 F 97.9 F Pulse Rate 75 77 Respiratory Rate 17 17 Blood Pressure 138/79 129/77 Pulse Oximetry 95 98 97 Oxygen Delivery Method Room Air Oxygen Flow Rate 0 Narrative Exam Narrative: GEN: thin, alert, no acute distress, appears comfortable HEENT: PERRL, moist mucous membranes NECK: no JVD, trachea midline HEART: Regular rate and rhythm with no murmurs LUNGS: lungs clear bilaterally ABD: bowels normal, soft, nondistended, nontender : no CVA tenderness MSK: Non-tender, no edema NEURO:no focal neuro deficits, appears more alert. SKIN: no rashes noted Objective Labs Result Diagrams: 01/22/21 10:00 01/22/21 10:00 Labs: Laboratory Results - last 24 hr 01/21/21 01/22/21 01/22/21 06:05 10:00 10:00 WBC 5.6 RBC 3.03 L Hgb 8.8 L Hct 26.4 L MCV 87.2 MCH 29.0 MCHC 33.3 RDW 12.9 Plt Count 257 Neut % (Auto) Not Reportable Lymph % (Auto) Not Reportable [place] % (Auto) Not Reportable Eos % (Auto) Not Reportable Baso % (Auto) Not Reportable Lymph # (Auto) Not Reportable [place] # (Auto) Not Reportable Baso # (Auto) Not Reportable Total Counted 100 Seg Neutrophils % 53.0 Band Neutrophils % 4.0 Lymphocytes % (Manual) 33.0 Monocytes % (Manual) 7.0 Eosinophils % (Manual) 3.0 Neutrophils # (Manual) 3192 RBC Morphology Normal morphology Sodium 138 Potassium 3.2 L Chloride 114 H Carbon Dioxide 21 L BUN 9 Creatinine 0.78 Estimated GFR > 60.0 BUN/Creatinine Ratio 11.5 Glucose 104 Calcium 7.6 L Magnesium 1.2 L Total Bilirubin 0.5 Conjugated Bilirubin 0.0 Unconjugated Bilirubin 0.3 AST 35 ALT 42 Alkaline Phosphatase 58 Total Protein 5.0 L Albumin 2.2 L Globulin 2.8 Albumin/Globulin Ratio 0.8 L Tacrolimus 12.0 PFSH Family History (Updated 01/18/21 @ 18:58 by Aaron Renae MD) Daughter Brain cancer Social History household members: family and children Smoking Status: Former smoker alcohol intake: never Assessment & Plan Assessment & Plan narrative: Mr. 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 Arriola (GI) and Dr. Carrillo (hospitalist) who agree patient would benefit from transfer and possible ERCP or EUS, patient has been accepted but currently no bed availability. Pending transfer since 01.20.21. -ordered CEA level which was 4.6 2. Acute encephalopathy, probable metabolic, improving -multiple possible etiologies -infection workup negative for pneumonia on imaging, negative for d iverticulitis, negative for urinary infection -COVID positive, but not short of breath and not hypoxemic ----however could be having post Covid symptoms of confusion -also taking benzos, opiates, and marijuana which are most likely cause of symptoms -CT head unremarkable -brain MRI showed no acute process -tacro ordered by ED but drawn at random time, level >11, however will redraw for true trough, but unlikely tacro would cause this -other consideration was AJAY virus as patient s/p transplant which could cause PML, but MRI with no evidence of this 3. Atrial fibrillation with RVR, acute -noted to be in new afib in the ED -TSH normal -ECHO performed and showed small LV, EF 75-80%, hyperdynamic LV ----etiology unclear as patient with no significant anemia, normal TSH, no history of COPD, RV appears normal -on anticoagulation for VTE with lovenox -received dilt IV in ED, and transitioned to oral diltiazem by ED, however dilt has interaction with tacro ----switched to metoprolol from diltiazem and is currently rate controlled. 3. Acute Pulmonary embolus -multiple noted on CTA of chest, no evidence of any RV strain -patient had already been on eliquis and was taking medications per family, unclear why patient had treatment failure -possibly failed in setting of probable malignancy, patient was switched to lovenox 70U BID, will continue given possible procedure planned. 4. Recent DVT, right leg -diagnosed prior to this admission -anticoagulation changed as noted above. 5. s/p Liver/kidney transplant, liver transplant was in and then again 94 from hep C, kidney transplant in 2009 reportedly due to atenolol/cyclosporine -ammonia normal -ordered prednisone, MMF, and tacro at home dose -tacro level ordered for trough 5. 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 Chronic pain with opiate, benzo dependence, and marijuana use -continue pain treatment with oxycodone -for benzos continue night dose of diazepam -try to avoid further medications to limit confusion 7. Acute urinary retention secondary to BPH, possibly worsened due to pain medications -already on tamsulosin and eliot continue -keith placed with good urine output -will attempt trial of void tomorrow if stable. 8. Mild anemia -hemoglobin of 11, now dropped to 8.8, will stop IV fluids. Given need for above endoscopic procedures will defer. -baseline unknown -no evidence of bleeding currently, but monitor closely 9. Transaminitis, improved -mild with AST 94, ALT 78 on admission -continue to trend daily with slight improvement to 70s given MRI findings. 10. Positive COVID PCR -likely continued positive from previous infection -not indicated for remdesivir or dexamethasone currently as not requiring oxygen -will monitor respiratory status closely but for now not requiring oxygen 11. Coagulopathy -INR of 3.0 on admission -etiology not clear -could be in setting liver transplant and liver dysfunction -repeat of 2.7 -d-dimer elevated, possibly from COVID -other possibility would be DIC, however platelets are normal ----acute DIC presents with thrombocytopenia, chronic may have normal platelets, fibrinogen elevated so probably unlikely -also could be from nutritional deficiency -trend daily 12. Hypokalemia - K 3.2. Will replete Mg in addition to potassium. 13. hypomagnesemia, - Mg 1.2 this AM. repleted with 4g IV. Continue to monitor. IVF: none DIET: Regular DVT ppx: on full dose apixaban CODE: full, proxy is daughter Fatuma Dispo: unclear, plan for transfer to [facility] for EUS or ERCP evaluation given his transplant history.
--- NOTE | 2021-01-22 17:28 | PT.IPTN ---
Current Diagnoses Metabolic encephalopathy (01/19/21) Physical Therapy Treatment Note M2 PT-IP Current Condition Start: 01/20/21 08:30 Freq: NEEDED Status: Active Protocol: Document 01/21/21 10:20 AW (Rec: 01/21/21 12:21 AW [id number]) Physical Therapy Current Condition Current Condition Evaluation Date 01/21/21 Treatment Diagnosis enephalopathy; a fib with RVR; difficulty in walking Onset Date 01/18/21 Precautions Other Precautions COVID (+) precautions M3 PT-IP Subjective Start: 01/20/21 08:30 Freq: NEEDED Status: Active Protocol: Document 01/22/21 17:18 AMH (Rec: 01/22/21 17:24 AMH [email or web address]) Subjective Physical Therapy Visit Type Type Treatment Note Visit Start Time 04:45 Visit Stop Time 05:10 Total Visit Minutes 25 Notes pt does not have on his prosthesis today, he is awaiting a bed at Physical Therapy Visit Comments Patient Comments pt is willing to do PT Therapy Pain Assessment Pain Present Pain Present Denied Pain M4 PT-IP Mobility and Gait Start: 01/20/21 08:30 Freq: NEEDED Status: Active Protocol: Document 01/22/21 17:18 AMH (Rec: 01/22/21 17:24 AMH [email or web address]) PT-Bed Mobility Assessment Supine to Sit Supine to Sit Minimal Assistance,1 Person Assistance PT-Transfer Assessment Sit to and From Stand Sit to and from Stand Contact Guard Assistance, Minimal Assistance Equipment Transfer Assistive Device Gait Belt Orthotic/Prosthetic Devices or Brace: No Comments Mobility Comments pt was reclined in the bed as PT arrived. He requires min A for bed mobility, he stood from bed to stand with CGA, he ambulated in the room with CGA at his right arm for balance and support. He ambulated in the room 30 feet. Pt requested to go back to bed instead of sitting in the bedside chair. He needed min assist to transfer back to bed . He was positioned comfortably in bed and his call light was placed within reach Gait Assessment Gait Gait Assistance Required: Contact Guard Assist Distance (Feet) 30 Assistive Devices Assistive Device Gait Belt Orthotic/Prosthetic Devices or Brace: No Factors Limiting Gait Function Factors Limiting Gait Function Decreased Activity Tolerance, Decreased Strength,Poor Balance,Poor Safety Awareness M5 PT-IP Objective Assessments Start: 01/20/21 08:30 Freq: NEEDED Status: Active Protocol: Document 01/21/21 10:20 AW (Rec: 01/21/21 12:21 AW [id number]) Orientation Orientation/Cognition Level of Alertness Alert Orientation Name,Place,Situation Language Function Ability No Deficits Noted Safety Awareness Decreased Safety Awareness Gross Range of Motion Lower Extremity ROM Assessment Bilaterally Impaired Impairments slight knee flexion contracture bilaterally Strength Lower Extremity Strength Assessment Bilaterally Impaired Hip 3+/5 Knee 4-/5 Ankle 4-/5 Sensation Assessment Comments Sensation Comments Pt reports no sensation disturbance but may be a poor historian. M6 PT-IP Treatment Start: 01/20/21 08:30 Freq: NEEDED Status: Active Protocol: Document 01/22/21 17:18 AMH (Rec: 01/22/21 17:24 AMH [email or web address]) Physical Therapy Treatment Exercises Exercises Ankle Pumps,Gluteal Sets,Heel Slides M7 PT-IP Assessment and Plan Start: 01/20/21 08:30 Freq: NEEDED Status: Active Protocol: Document 01/22/21 17:24 AMH (Rec: 01/22/21 17:28 AMH [email or web address]) PT Summary Assessment and Plan Potential Rehabilitation Potential Good Status of Condition at Evaluation Evolving Summary Impairments Pain,ROM,Strength,Balance, Cognition,Bed Mobility, Transfers,Gait,Activity Tolerance Assessment Summary Manuel is a 65 yo man admitted with acute metabolic encephalopathy and recent COVID infection who still tests positive. 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 He reports independent mobility at home. Since recent COVID infection, pt has had decreased activity tolerance and strength. Manuel was willing to participate in PT today and we worked on ther ex in bed, transfer training, ambulation in room with CGA. He is currently waiting for a bed at [facility] Goals Bed Mobility Goal Independent Transfer Goal Independent Gait Goal Independent Gait Distance 100 Days to Meet Goals 10 Frequency of Treatment Frequency Of Treatment Once a Day Treatment Plan Physical Therapy Treatment Plan Bed Mobility Training,Transfer Training,Gait Training, Therapeutic Exercise,Balance Retraining,Discharge Planning Other Recommendations and Next Treatment balance and endurance training Focus Precautions Other Precautions COVID (+) precautions Recommendations To Nursing Amount of Assist Needed 1 Person Assist Discharge Recommendations Other Discharge Recommendations pt is awaiting a bed at [facility]
[2021-01-22] MEDS: TAMSULOSIN 0.4 MG CAPSULE PO (20:22)
[2021-01-22] MEDS: diazePAM 5 MG TABLET 10 MG PO (20:24)
[2021-01-22] MEDS: MELATONIN 3 MG TABLET 6 MG PO (20:24)
[2021-01-22] MEDS: LATANOPROST 0.005% OPHTH 2.5 ML 1 DROPS EYE-LEFT (20:24)
[2021-01-22] MEDS: TACROLIMUS 0.5 MG CAPSULE PO (20:24)
--- NOTE | 2021-01-22 21:48 | PC.NURSE ---
Patient's daughter stopped by to drop off home medications. These were sent to pharmacy. Daughter requests call with any updates or if we plan to transfer him soon so she is aware and able to pick and shovel man his medications.
[2021-01-23] VITALS (9 sets, daily range): BP systolic 116–147; BP diastolic 75–97; PULSE 73–92; RESP 15–18; TEMP 36.6–37.2; O2SAT 94–98
[2021-01-23] MEDS: LEVOTHYROXINE 100 MCG TABLET PO (05:21)
[2021-01-23 05:50] LABS: Add Manual Diff / Slide Review NO; Basophils Absolute Auto 0 /uL (0-100); Basophils Percent Auto 0.3 % (0-2); Eosinophils Absolute Auto 100 /uL (0-450); Hematocrit 29.3 % (41-53); Hemoglobin 9.8 g/dL (13.5-17.5); Lymphocytes Absolute Auto 1700 /uL (1100-4500); Lymphocytes Percent Auto 26.5 % (25-40); Mean Corpuscular HGB Conc 33.6 % (30-36); Mean Corpuscular Hemoglobin 29.2 PG (26-34); Mean Corpuscular Volume 86.9 fL (80-100); Monocytes Absolute Auto 700 /uL (0-900); Monocytes Percent Auto 10.3 % (3-14); Neutrophils Absolute Auto 3900 /uL (1500-7000); Neutrophils Percent Auto 60.9 % (50-75); Platelet Count 262 X10^3/uL (150-400); Red Blood Cell Count 3.37 X10^6/uL (4.5-5.9); Red Cell Distribution Width 13.3 % (11.6-14.8); White Blood Cell Count 6.5 X10^3/uL (4.5-11.0)
[2021-01-23 05:56] LABS: INR 1.7 (0.9-1.3)
[2021-01-23 06:00] LABS: Alanine Aminotransferase 38 IU/L (<50); Albumin 2.3 g/dL (3.5-5.0); Albumin Globulin Ratio 0.9 (1.0-2.8); Alkaline Phosphatase 59 U/L (38-126); Aspartate Aminotransferase 32 IU/L (17-59); BUN Creatinine Ratio 12.7 (6-22); Bilirubin Total 0.5 mg/dL (0.2-1.3); Bilirubin Unconjugated 0.3 mg/dL (0.0-1.1); Blood Urea Nitrogen 10 mg/dL (9-20); Calcium 7.7 mg/dL (8.4-10.2); Carbon Dioxide 20 mmol/L (22-32); Chloride 112 mmol/L (98-107); Estimated Glomerular Filt Rate > 60.0 mL/min (>60); Globulin 2.7 g/dL (1.7-4.1); Glucose 77 mg/dL (80-110); HEMOLYSIS < 15 (0-50); Magnesium 1.5 mg/dL (1.6-2.3); Potassium 3.7 mmol/L (3.4-5.1); Sodium 136 mmol/L (137-145)
[2021-01-23] MEDS: ENOXAPARIN 80 MG/0.8 ML SYRINGE 70 MG SUBCUT ×2 (09:15→20:55)
[2021-01-23] MEDS: SODIUM CHLORIDE 0.9% FLUSH 10 ML IV ×2 (09:16→20:55)
[2021-01-23] MEDS: METOPROLOL IR 50 MG TABLET PO ×2 (09:16→20:55)
[2021-01-23] MEDS: TACROLIMUS 0.5 MG CAPSULE 1 MG PO (09:16)
[2021-01-23] MEDS: PANTOPRAZOLE DR 40 MG TABLET PO ×2 (09:16→20:54)
[2021-01-23] MEDS: predniSONE 5 MG TABLET PO (09:16)
[2021-01-23] MEDS: MYCOPHENOLATE SODIUM 360 MG 360 EACH PO ×2 (09:18→20:57)
[2021-01-23] MEDS: DORZOLAMIDE/TIMOLOL OPHTH 10 ML 1 DROPS EYE-LEFT ×2 (09:18→12:00)
[2021-01-23] MEDS: OXYCODONE IR 5 MG TABLET PO ×2 (09:22→18:22)
[2021-01-23] MEDS: MAGNESIUM SULFATE 2 GM/50 ML PIGGYBACK IV (09:23)
--- NOTE | 2021-01-23 13:05 | PM.PN.1 ---
Subjective Subjective Date Patient Seen: 01/23/21 Time Patient Seen: 13:06 Interval history: He has no complaints today. He has no abdominal pain. He has no shortness of breath. Still pending transfer to [facility] for further ERCP / EUS. Exam Vital Signs (past 8 hours): - 01/23/21 08:30 Temperature 98.2 F Pulse Rate 92 H Respiratory Rate 15 Blood Pressure 127/81 Pulse Oximetry 94 Oxygen Delivery Method Room Air Oxygen Flow Rate 0 Narrative Exam Narrative: GEN: thin, alert, no acute distress, appears comfortable HEENT: PERRL, moist mucous membranes NECK: no JVD, trachea midline HEART: Regular rate and rhythm with no murmurs LUNGS: lungs clear bilaterally ABD: bowels normal, soft, nondistended, nontender : no CVA tenderness MSK: Non-tender, no edema NEURO:no focal neuro deficits, appears more alert. SKIN: no rashes noted Objective Labs Result Diagrams: 01/23/21 05:45 01/23/21 05:45 Labs: Laboratory Results - last 24 hr 01/23/21 01/23/21 01/23/21 05:45 05:45 05:45 WBC 6.5 RBC 3.37 L Hgb 9.8 L Hct 29.3 L MCV 86.9 MCH 29.2 MCHC 33.6 RDW 13.3 Plt Count 262 Neut % (Auto) 60.9 Lymph % (Auto) 26.5 [place] % (Auto) 10.3 Eos % (Auto) 2.0 Baso % (Auto) 0.3 Neut # (Auto) 3900 Lymph # (Auto) 1700 [place] # (Auto) 700 Eos # (Auto) 100 Baso # (Auto) 0 PT 19.0 H INR 1.7 H Sodium 136 L Potassium 3.7 Chloride 112 H Carbon Dioxide 20 L BUN 10 Creatinine 0.79 Estimated GFR > 60.0 BUN/Creatinine Ratio 12.7 Glucose 77 L Calcium 7.7 L Magnesium 1.5 L Total Bilirubin 0.5 Conjugated Bilirubin 0.0 Unconjugated Bilirubin 0.3 AST 32 ALT 38 Alkaline Phosphatase 59 Total Protein 5.0 L Albumin 2.3 L Globulin 2.7 Albumin/Globulin Ratio 0.9 L PFSH Family History (Updated 01/18/21 @ 18:58 by Aaron Renae MD) Daughter Brain cancer Social History household members: family and children Smoking Status: Former smoker alcohol intake: never Assessment & Plan Assessment & Plan narrative: Mr. 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 Arriola (GI) and Dr. Carrillo (hospitalist) who agree patient would benefit from transfer and possible ERCP or EUS, patient has been accepted but currently no bed availability. Pending transfer since 01.20.21. -ordered CEA level which was 4.6 2. Acute encephalopathy, probable metabolic, improving -multiple possible etiologies -infection workup negative for pneumonia on imaging, negative for diverticulitis, negative for urinary infection -COVID positive, but not short of breath and not hypoxemic ----however could be having post Covid symptoms of confusion -also taking benzos, opiates, and marijuana which are most likely cause of symptoms -CT head unremarkable -brain MRI showed no acute process -tacro ordered by ED but drawn at random time, level >11, however will redraw for true trough, but unlikely tacro would cause this -other consideration was AJAY virus as patient s/p transplant which could cause PML, but MRI with no evidence of this 3. Atrial fibrillation with RVR, acute -noted to be in new afib in the ED -TSH normal -ECHO performed and showed small LV, EF 75-80%, hyperdynamic LV ----etiology unclear as patient with no significant anemia, normal TSH, no history of COPD, RV appears normal -on anticoagulation for VTE with lovenox -received dilt IV in ED, and transitioned to oral diltiazem by ED, however dilt has interaction with tacro ----switched to metoprolol from diltiazem and is currently rate controlled. 3. Acute Pulmonary embolus -multiple noted on CTA of chest, no evidence of any RV strain -patient had already been on eliquis and was taking medications per family, unclear why patient had treatment failure -possibly failed in setting of probable malignancy, patient was switched to lovenox 70U BID, will continue given possible procedure planned. 4. Recent DVT, right leg -diagnosed prior to this admission -anticoagulation changed as noted above. 5. s/p Liver/kidney transplant, liver transplant was in and then again 94 from hep C, kidney transplant in 2009 reportedly due to atenolol/cyclosporine -ammonia normal -ordered prednisone, MMF, and tacro at home dose -tacro level ordered for trough 5. 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 Chronic pain with opiate, benzo dependence, and marijuana use -continue pain treatment with oxycodone -for benzos continue night dose of diazepam -try to avoid further medications to limit confusion 7. Acute urinary retention secondary to BPH, possibly worsened due to pain medications -already on tamsulosin and eliot continue -keith placed with good urine output -will attempt trial of void tomorrow if stable. 8. Mild anemia -hemoglobin of 11, now dropped to 8.8, will stop IV fluids. Given need for above endoscopic procedures will defer. -baseline unknown -no evidence of bleeding currently, but monitor closely 9. Transaminitis, improved -mild with AST 94, ALT 78 on admission -continue to trend daily with slight improvement to 70s given MRI findings. 10. Positive COVID PCR -likely continued positive from previous infection -not indicated for remdesivir or dexamethasone currently as not requiring oxygen -will monitor respiratory status closely but for now not requiring oxygen -consider repeat testing to see if still positive. 11. Coagulopathy -INR of 3.0 on admission -etiology not clear -could be in setting liver transplant and liver dysfunction -repeat of 2.7 -d-dimer elevated, possibly from COVID -other possibility would be DIC, however platelets are normal ----acute DIC presents with thrombocytopenia, chronic may have normal platelets, fibrinogen elevated so probably unlikely -also could be from nutritional deficiency -trend daily 12. Hypokalemia - K 3.2. Will replete Mg in addition to potassium. 13. hypomagnesemia, - Mg 1.2 this AM. repleted with 4g IV. Continue to monitor. IVF: none DIET: Regular DVT ppx: on full dose apixaban CODE: full, proxy is daughter Fatuma Dispo: unclear, plan for transfer to for EUS or ERCP evaluation given his transplant history. Given prolonged wait (pending since 01/19) and some improvement, if able to coordinate rapid outpatient EUS/ERCP that may be able to be considered. [facility] transfer center should be able to assist with this potentially.
--- NOTE | 2021-01-23 13:52 | CM.DPC ---
DCP/continued: Reviewed chart. Patient is LOS day#4 per provider/Dr. Jones in AM rounds we are waiting on bed at ? Dr. Jones plans to check on whether or not patient could go home and follow up with as outpatient if no bed available today? photographer news/Marianne aware and plans to call [facility] for bed and/or outpatient appointment availability. Patient COVID positive, BLOCK ENGRAVER attempted to call patient in the room at approximately 1:45pm no answer and then phone line busy. P: Pending. Anticipate home with outpatient follow up with vs. transfer to . ARSENIO Ricks
--- NOTE | 2021-01-23 16:43 | PT.IPTN ---
Current Diagnoses Metabolic encephalopathy (01/19/21) Physical Therapy Treatment Note M2 PT-IP Current Condition Start: 01/20/21 08:30 Freq: NEEDED Status: Active Protocol: Document 01/21/21 10:20 AW (Rec: 01/21/21 12:21 AW [id number]) Physical Therapy Current Condition Current Condition Evaluation Date 01/21/21 Treatment Diagnosis enephalopathy; a fib with RVR; difficulty in walking Onset Date 01/18/21 Precautions Other Precautions COVID (+) precautions M3 PT-IP Subjective Start: 01/20/21 08:30 Freq: NEEDED Status: Active Protocol: Document 01/23/21 16:27 HH (Rec: 01/23/21 16:43 HH [id number]) Subjective Physical Therapy Visit Type Type Treatment Note Visit Start Time 15:55 Visit Stop Time 16:25 Total Visit Minutes 30 Notes pt does not have on his prosthesis today, he is awaiting a bed at Physical Therapy Visit Comments Patient Comments pt is willing to do PT Therapy Pain Assessment Pain Present Pain Present Denied Pain M4 PT-IP Mobility and Gait Start: 01/20/21 08:30 Freq: NEEDED Status: Active Protocol: Document 01/23/21 16:27 HH (Rec: 01/23/21 16:43 HH [id number]) PT-Bed Mobility Assessment Supine to Sit Supine to Sit Contact Guard Assistance,1 Person Assistance PT-Transfer Assessment Sit to and From Stand Sit to and from Stand Contact Guard Assistance, Minimal Assistance Equipment Transfer Assistive Device Gait Belt Orthotic/Prosthetic Devices or Brace: No Transfers Transfer Destination Chair Transfer Technique Stand Step Pivot Transfer Ability Level of Assist Contact Guard Assistance Comments Mobility Comments Pt was in bed upon PT arrival. He was excited to participate PT. Pt was able to complete supine to long sit slowly with SBA. He then completed sit to stand 5 times SBA x 4 sets. He also did seated trunk extension. After that, He walked without AD, SBA within the room x 30ft x 6 laps. no signs of SOB/ LOB. Pt then returned to EOB and requested to have PHYSICIAN OPHTHALMOLOGIST to assist bathroom access. Handed pt off to PHYSICIAN OPHTHALMOLOGIST Gait Assessment Gait Gait Assistance Required: Contact Guard Assist Distance (Feet) 180 Assistive Devices Assistive Device Gait Belt Orthotic/Prosthetic Devices or Brace: No Factors Limiting Gait Function Factors Limiting Gait Function Decreased Activity Tolerance, Decreased Strength,Poor Balance,Poor Safety Awareness Comments Gait Comments see above Stair Climbing Assessment Comments Stair Climbing Comments Not assessed. Pt does not need to navigate stairs at home. PT-Balance Assessment Sitting Balance and Reactions Static Sitting Balance Ability Good Dynamic Sitting Balance Ability Fair Standing Balance and Reactions Static Standing Balance Ability Normal Dynamic Standing Balance Ability Good Device Used no AD M5 PT-IP Objective Assessments Start: 01/20/21 08:30 Freq: NEEDED Status: Active Protocol: Document 01/21/21 10:20 AW (Rec: 01/21/21 12:21 AW [id number]) Orientation Orientation/Cognition Level of Alertness Alert Orientation Name,Place,Situation Language Function Ability No Deficits Noted Safety Awareness Decreased Safety Awareness Gross Range of Motion Lower Extremity ROM Assessment Bilaterally Impaired Impairments slight knee flexion contracture bilaterally Strength Lower Extremity Strength Assessment Bilaterally Impaired Hip 3+/5 Knee 4-/5 Ankle 4-/5 Sensation Assessment Comments Sensation Comments Pt reports no sensation disturbance but may be a poor historian. M6 PT-IP Treatment Start: 01/20/21 08:30 Freq: NEEDED Status: Active Protocol: Document 01/22/21 17:18 AMH (Rec: 01/22/21 17:24 AMH [email or web address]) Physical Therapy Treatment Exercises Exercises Ankle Pumps,Gluteal Sets,Heel Slides M7 PT-IP Assessment and Plan Start: 01/20/21 08:30 Freq: NEEDED Status: Active Protocol: Document 01/23/21 16:27 HH (Rec: 01/23/21 16:43 HH [id number]) PT Summary Assessment and Plan Potential Rehabilitation Potential Good Status of Condition at Evaluation Evolving Summary Impairments Pain,ROM,Strength,Balance, Cognition,Bed Mobility, Transfers,Gait,Activity Tolerance Assessment Summary pt shows improvements today who is able to transfer and amb without AD. Pt is going to be transferred to tomorrow . Goals Bed Mobility Goal Independent Transfer Goal Independent Gait Goal Independent Gait Distance 100 Days to Meet Goals 10 Frequency of Treatment Frequency Of Treatment Once a Day Treatment Plan Physical Therapy Treatment Plan Bed Mobility Training,Transfer Training,Gait Training, Therapeutic Exercise,Balance Retraining,Discharge Planning Other Recommendations and Next Treatment balance and endurance training Focus Precautions Other Precautions COVID (+) precautions Recommendations To Nursing Amount of Assist Needed 1 Person Assist Discharge Recommendations Other Discharge Recommendations pt is awaiting a bed at [facility]
[2021-01-23] MEDS: MELATONIN 3 MG TABLET 6 MG PO (20:55)
[2021-01-23] MEDS: TACROLIMUS 0.5 MG CAPSULE PO (20:55)
[2021-01-23] MEDS: diazePAM 5 MG TABLET 10 MG PO (20:55)
[2021-01-23] MEDS: TAMSULOSIN 0.4 MG CAPSULE PO (20:55)
[2021-01-23] MEDS: LATANOPROST 0.005% OPHTH 2.5 ML 1 DROPS EYE-LEFT (20:56)
[2021-01-24 03:12] VITALS: O2SAT 94
[2021-01-24] MEDS: LEVOTHYROXINE 100 MCG TABLET PO (05:20)
[2021-01-24 05:53] LABS: Add Manual Diff / Slide Review NO; Basophils Absolute Auto 0 /uL (0-100); Basophils Percent Auto 0.5 % (0-2); Eosinophils Absolute Auto 100 /uL (0-450); Eosinophils Percent Auto 1.6 % (2-4); Hematocrit 28.7 % (41-53); Hemoglobin 9.5 g/dL (13.5-17.5); Lymphocytes Absolute Auto 1900 /uL (1100-4500); Lymphocytes Percent Auto 26.2 % (25-40); Mean Corpuscular HGB Conc 33.3 % (30-36); Mean Corpuscular Hemoglobin 29.1 PG (26-34); Mean Corpuscular Volume 87.4 fL (80-100); Monocytes Absolute Auto 800 /uL (0-900); Monocytes Percent Auto 10.6 % (3-14); Neutrophils Absolute Auto 4400 /uL (1500-7000); Neutrophils Percent Auto 61.1 % (50-75); Platelet Count 277 X10^3/uL (150-400); Red Blood Cell Count 3.28 X10^6/uL (4.5-5.9); Red Cell Distribution Width 13.3 % (11.6-14.8); White Blood Cell Count 7.2 X10^3/uL (4.5-11.0)
[2021-01-24 05:56] LABS: INR 1.6 (0.9-1.3); Prothrombin Time 18.1 SECONDS (10.1-12.7)
[2021-01-24 06:02] VITALS: PULSE 80; RESP 16
[2021-01-24 06:06] LABS: Alanine Aminotransferase 40 IU/L (<50); Albumin 2.6 g/dL (3.5-5.0); Albumin Globulin Ratio 0.9 (1.0-2.8); Alkaline Phosphatase 62 U/L (38-126); Aspartate Aminotransferase 33 IU/L (17-59); BUN Creatinine Ratio 18.5 (6-22); Bilirubin Total 0.5 mg/dL (0.2-1.3); Bilirubin Unconjugated 0.2 mg/dL (0.0-1.1); Blood Urea Nitrogen 15 mg/dL (9-20); Calcium 8.5 mg/dL (8.4-10.2); Carbon Dioxide 22 mmol/L (22-32); Chloride 110 mmol/L (98-107); Estimated Glomerular Filt Rate > 60.0 mL/min (>60); Glucose 90 mg/dL (80-110); HEMOLYSIS < 15 (0-50); Magnesium 1.6 mg/dL (1.6-2.3); Potassium 3.9 mmol/L (3.4-5.1); Sodium 135 mmol/L (137-145); Total Protein 5.6 g/dL (6.3-8.2)
[2021-01-24 07:27] VITALS: BP 125/89; PULSE 85; RESP 16; TEMP 37.1; O2SAT 100
[2021-01-24] MEDS: METOPROLOL IR 50 MG TABLET PO ×2 (09:32→20:18)
[2021-01-24] MEDS: PANTOPRAZOLE DR 40 MG TABLET PO ×2 (09:32→20:18)
[2021-01-24] MEDS: ENOXAPARIN 80 MG/0.8 ML SYRINGE 70 MG SUBCUT ×2 (09:32→20:16)
[2021-01-24] MEDS: TACROLIMUS 0.5 MG CAPSULE 1 MG PO (09:32)
[2021-01-24] MEDS: MYCOPHENOLATE SODIUM 360 MG 360 EACH PO ×2 (09:33→20:18)
[2021-01-24] MEDS: SODIUM CHLORIDE 0.9% FLUSH 10 ML IV ×2 (09:33→20:20)
[2021-01-24] MEDS: DORZOLAMIDE/TIMOLOL OPHTH 10 ML 1 DROPS EYE-LEFT ×2 (09:35→12:23)
[2021-01-24] MEDS: predniSONE 5 MG TABLET PO (09:35)
[2021-01-24] MEDS: ACETAMINOPHEN 325 MG TABLET 650 MG PO (09:57)
[2021-01-24] MEDS: OXYCODONE IR 5 MG TABLET PO ×2 (09:57→18:59)
[2021-01-24 14:00] VITALS: BP 115/73; PULSE 72; RESP 16; TEMP 36.7
--- NOTE | 2021-01-24 15:01 | PT.IPTN ---
Current Diagnoses Metabolic encephalopathy (01/19/21) Physical Therapy Treatment Note M2 PT-IP Current Condition Start: 01/20/21 08:30 Freq: NEEDED Status: Active Protocol: Document 01/21/21 10:20 AW (Rec: 01/21/21 12:21 AW [id number]) Physical Therapy Current Condition Current Condition Evaluation Date 01/21/21 Treatment Diagnosis enephalopathy; a fib with RVR; difficulty in walking Onset Date 01/18/21 Precautions Other Precautions COVID (+) precautions M3 PT-IP Subjective Start: 01/20/21 08:30 Freq: NEEDED Status: Active Protocol: Document 01/24/21 14:29 CLB (Rec: 01/24/21 17:33 CLB [id number]) Subjective Physical Therapy Visit Type Type Treatment Note Visit Start Time 14:29 Visit Stop Time 15:01 Total Visit Minutes 32 Number of ASSOCIATE STORE LEADER Visits 1 Physical Therapy Visit Comments Patient Comments pt is willing to do PT Therapy Pain Assessment Pain Present Pain Present Denied Pain M4 PT-IP Mobility and Gait Start: 01/20/21 08:30 Freq: NEEDED Status: Active Protocol: Document 01/24/21 14:29 CLB (Rec: 01/24/21 17:33 CLB [id number]) PT-Bed Mobility Assessment Supine to Sit Supine to Sit Standby Assistance,1 Person Assistance,Head of Bed Elevated Sit to Supine Sit to Supine Standby Assistance,1 Person Assistance,Head of Bed Elevated PT-Transfer Assessment Sit to and From Stand Sit to and from Stand Contact Guard Assistance,1 Person Assistance Equipment Transfer Assistive Device Gait Belt Orthotic/Prosthetic Devices or Brace: No Transfers Transfer Destination Bed Transfer Technique Stand Step Pivot Transfer Ability Level of Assist Standby Assistance,1 Person Assistance Comments Mobility Comments Pt in bed getting to EOB SBA, pt stood CGA and ambulated in room w/o AD and no LOB. Pt sat on bed performing sit-stand x5, seated marches and knee ext/flx. Pt stood and ambulated in room again then returned to supine performing AP's and QS. Pt left in bed with all needs within reach. Gait Assessment Gait Gait Assistance Required: Standby Assistance,1 Person Assist Distance (Feet) 180 Assistive Devices Orthotic/Prosthetic Devices or Brace: No Factors Limiting Gait Function Factors Limiting Gait Function Decreased Activity Tolerance, Decreased Strength,Poor Balance Comments Gait Comments see above PT-Balance Assessment Sitting Balance and Reactions Static Sitting Balance Ability Good Dynamic Sitting Balance Ability Fair Standing Balance and Reactions Static Standing Balance Ability Normal Dynamic Standing Balance Ability Good Device Used no AD M5 PT-IP Objective Assessments Start: 01/20/21 08:30 Freq: NEEDED Status: Active Protocol: Document 01/21/21 10:20 AW (Rec: 01/21/21 12:21 AW [id number]) Orientation Orientation/Cognition Level of Alertness Alert Orientation Name,Place,Situation Language Function Ability No Deficits Noted Safety Awareness Decreased Safety Awareness Gross Range of Motion Lower Extremity ROM Assessment Bilaterally Impaired Impairments slight knee flexion contracture bilaterally Strength Lower Extremity Strength Assessment Bilaterally Impaired Hip 3+/5 Knee 4-/5 Ankle 4-/5 Sensation Assessment Comments Sensation Comments Pt reports no sensation disturbance but may be a poor historian. M6 PT-IP Treatment Start: 01/20/21 08:30 Freq: NEEDED Status: Active Protocol: Document 01/24/21 14:29 CLB (Rec: 01/24/21 17:33 CLB [id number]) Physical Therapy Treatment Exercises Exercises Ankle Pumps,Gluteal Sets,Quad Sets,Seated Knee Flexion/ Extension M7 PT-IP Assessment and Plan Start: 01/20/21 08:30 Freq: NEEDED Status: Active Protocol: Document 01/24/21 14:29 CLB (Rec: 01/24/21 17:33 CLB [id number]) PT Summary Assessment and Plan Potential Rehabilitation Potential Good Status of Condition at Evaluation Evolving Summary Impairments Pain,ROM,Strength,Balance, Cognition,Bed Mobility, Transfers,Gait,Activity Tolerance Assessment Summary Pt is SBA for bed mobility, CGA for sit-stand and SBA for gait. Pt demonstrated safe gait w/o AD. Pt is waiting for bed at and will transfer hospitals. Goals Bed Mobility Goal Independent Transfer Goal Independent Gait Goal Independent Gait Distance 100 Days to Meet Goals 10 Frequency of Treatment Frequency Of Treatment Once a Day Treatment Plan Physical Therapy Treatment Plan Bed Mobility Training,Transfer Training,Gait Training, Therapeutic Exercise,Balance Retraining,Discharge Planning Other Recommendations and Next Treatment balance and endurance training Focus Precautions Other Precautions COVID (+) precautions Recommendations To Nursing Amount of Assist Needed 1 Person Assist Discharge Recommendations Other Discharge Recommendations pt is awaiting a bed at [facility]
[2021-01-24 16:09] VITALS: BP 134/78; PULSE 76; RESP 16; TEMP 36.7; O2SAT 100
--- NOTE | 2021-01-24 19:56 | PM.PN.1 ---
Subjective Subjective Date Patient Seen: 01/24/21 Interval history: Mr. 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 Patient notes improvement in his mentation. He denies chest pain or dyspnea. He is eating well. Exam Vital Signs (past 8 hours): - 01/24/21 14:00 01/24/21 16:09 Temperature 98.1 F 98.0 F Pulse Rate 72 76 Respiratory Rate 16 16 Blood Pressure 115/73 134/78 Pulse Oximetry 100 Oxygen Delivery Method Room Air Oxygen Flow Rate 0 Narrative Exam Narrative: General: Alert, NAD Lungs: Clear to auscultation Heart: Irregularly irregular D Abdomen: Soft and nontender Extremities: No edema Neurological: Fully oriented, speech normal, affect normal, nonfocal Objective Labs Result Diagrams: 01/24/21 05:35 01/24/21 05:35 Labs: Laboratory Results - last 24 hr 01/24/21 01/24/21 01/24/21 05:35 05:35 05:35 WBC 7.2 RBC 3.28 L Hgb 9.5 L Hct 28.7 L MCV 87.4 MCH 29.1 MCHC 33.3 RDW 13.3 Plt Count 277 Neut % (Auto) 61.1 Lymph % (Auto) 26.2 [place]idan % (Auto) 10.6 Eos % (Auto) 1.6 L Baso % (Auto) 0.5 Neut # (Auto) 4400 Lymph # (Auto) 1900 [place]idan # (Auto) 800 Eos # (Auto) 100 Baso # (Auto) 0 PT 18.1 H INR 1.6 H Sodium 135 L Potassium 3.9 Chloride 110 H Carbon Dioxide 22 BUN 15 Creatinine 0.81 Estimated GFR > 60.0 BUN/Creatinine Ratio 18.5 Glucose 90 Calcium 8.5 Magnesium 1.6 Total Bilirubin 0.5 Conjugated Bilirubin 0.0 Unconjugated Bilirubin 0.2 AST 33 ALT 40 Alkaline Phosphatase 62 Total Protein 5.6 L Albumin 2.6 L Globulin 3.0 Albumin/Globulin Ratio 0.9 L PFSH Family History (Updated 01/18/21 @ 18:58 by Aaron Renae MD) Daughter Brain cancer Social History household members: family and children Smoking Status: Former smoker alcohol intake: never Assessment & Plan Assessment & Plan narrative: 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 Arriola (GI) and Dr. Carrillo (hospitalist) who agree patient would benefit from transfer and possible ERCP or EUS, patient has been accepted but currently no bed availability. Pending transfer since 01.20.21. -ordered CEA level which was 4.6 -at this point patient is quite medically stable, certainly not acutely ill due to the ampullary lesion, recently COVID positive, on Lovenox for acute PE and likely there is no harm from waiting a few weeks to have this lesion biopsied -discussed with patient and daughter Jenelle to contact [facility] immediately post discharge so they can arrange for appropriate evaluation of this ampullary lesion 2. Acute encephalopathy, probable metabolic, resolved -multiple possible etiologies -infection workup negative for pneumonia on imaging, negative for diverticulitis, negative for urinary infection -COVID positive, but not short of breath and not hypoxemic ----however could be having post Covid symptoms of confusion -also taking benzos, opiates, and marijuana which are most likely cause of symptoms -CT head unremarkable -brain MRI showed no acute process -tacro ordered by ED but drawn at random time, level >11, however will redraw for true trough, but unlikely tacro would cause this -other consideration was AJAY virus as patient s/p transplant which could cause PML, but MRI with no evidence of this 3. Atrial fibrillation with RVR, acute -noted to be in new afib in the ED -TSH normal -ECHO performed and showed small LV, EF 75-80%, hyperdynamic LV ----etiology unclear as patient with no significant anemia, normal TSH, no history of COPD, RV appears normal -on anticoagulation for VTE with lovenox -received dilt IV in ED, and transitioned to oral diltiazem by ED, however dilt has interaction with tacro ----switched to metoprolol from diltiazem and is currently rate controlled. 3. Acute Pulmonary embolus -CTA: Small acute PE in right main pulmonary artery and right upper lobe pulmonary artery, occlusive PE in posterior segment right upper lobe pulmonary artery -patient had already been on eliquis and was taking medications per family, unclear why patient had treatment failure -possibly failed in setting of probable malignancy, patient was switched to lovenox 70U BID, will continue as outpatient given possible procedure in near future 4. Recent DVT, right leg -diagnosed prior to this admission -anticoagulation changed as noted above. 5. s/p Liver/kidney transplant, liver transplant was in and then again 94 from hep C, kidney transplant in 2009 reportedly due to atenolol/cyclosporine -ammonia normal -ordered prednisone, MMF, and tacro at home dose -tacro level ordered for trough 5. 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 Chronic pain with opiate, benzo dependence, and marijuana use -continue pain treatment with oxycodone -for benzos continue night dose of diazepam -try to avoid further medications to limit confusion 7. Acute urinary retention secondary to BPH, possibly worsened due to pain medications -already on tamsulosin and eliot continue -keith placed with good urine output -will attempt trial of void tomorrow if stable. 8. Mild anemia -hemoglobin of 11, now dropped to 8.8, then stabilized. Given need for above endoscopic procedures will defer. -baseline unknown -no evidence of bleeding currently, but monitor closely 9. Transaminitis, improved -mild with AST 94, ALT 78 on admission -continue to trend daily with slight improvement to 70s given MRI findings. 10. Positive COVID PCR -likely continued positive from previous infection -not indicated for remdesivir or dexamethasone currently as not requiring oxygen -will monitor respiratory status closely but for now not requiring oxygen -consider repeat testing to see if still positive. 11. Hypokalemia, corrected to normal - K 3.2. Will replete Mg in addition to potassium. 13. hypomagnesemia, corrected to normal - Mg 1.2 this AM. repleted with 4g IV. Patient appears clinically stable where he can discharge home with family tomorrow and follow up with [facility] and PCP. Repeat COVID PCR ordered per daughter request although positive PCR would not preclude him going home.
[2021-01-24] MEDS: diazePAM 5 MG TABLET 10 MG PO (20:16)
[2021-01-24] MEDS: LATANOPROST 0.005% OPHTH 2.5 ML 1 DROPS EYE-LEFT (20:17)
[2021-01-24] MEDS: MELATONIN 3 MG TABLET 6 MG PO (20:17)
[2021-01-24] MEDS: TAMSULOSIN 0.4 MG CAPSULE PO (20:19)
[2021-01-24] MEDS: TACROLIMUS 0.5 MG CAPSULE PO (20:19)
[2021-01-24 20:34] VITALS: BP 141/75; PULSE 88; RESP 18; TEMP 36.7; O2SAT 98
[2021-01-24 20:59] LABS: COVID19 -Nasal RAPID Negative (Negative)
[2021-01-25 00:02] VITALS: BP 114/76; PULSE 71; RESP 18; TEMP 36.4; O2SAT 99
[2021-01-25 00:20] VITALS: O2SAT 99
[2021-01-25 04:00] VITALS: BP 110/69; PULSE 78; RESP 18; TEMP 36.2; O2SAT 98
[2021-01-25] MEDS: OXYCODONE IR 5 MG TABLET PO ×2 (04:10→08:27)
[2021-01-25 05:42] LABS: INR 1.5 (0.9-1.3); Prothrombin Time 17.3 SECONDS (10.1-12.7)
[2021-01-25] MEDS: LEVOTHYROXINE 100 MCG TABLET PO (06:31)
[2021-01-25 08:00] VITALS: BP 127/77; PULSE 79; RESP 17; TEMP 36.7; O2SAT 98
[2021-01-25] MEDS: ENOXAPARIN 80 MG/0.8 ML SYRINGE 70 MG SUBCUT (08:25)
[2021-01-25] MEDS: predniSONE 5 MG TABLET PO (08:26)
[2021-01-25] MEDS: TACROLIMUS 0.5 MG CAPSULE 1 MG PO (08:26)
[2021-01-25] MEDS: PANTOPRAZOLE DR 40 MG TABLET PO (08:26)
[2021-01-25] MEDS: ACETAMINOPHEN 325 MG TABLET 650 MG PO (08:26)
[2021-01-25] MEDS: METOPROLOL IR 50 MG TABLET PO (08:27)
[2021-01-25] MEDS: DORZOLAMIDE/TIMOLOL OPHTH 10 ML 1 DROPS EYE-LEFT (08:31)
[2021-01-25] MEDS: MYCOPHENOLATE SODIUM 360 MG 360 EACH PO (08:31)
[2021-01-25] MEDS: SODIUM CHLORIDE 0.9% FLUSH 10 ML IV (08:32)
[2021-01-25 10:45] VITALS: O2SAT 99
--- NOTE | 2021-01-25 11:16 | PT.IPTN ---
Current Diagnoses Metabolic encephalopathy (01/19/21) Physical Therapy Treatment Note M2 PT-IP Current Condition Start: 01/20/21 08:30 Freq: NEEDED Status: Active Protocol: Document 01/21/21 10:20 AW (Rec: 01/21/21 12:21 AW [id number]) Physical Therapy Current Condition Current Condition Evaluation Date 01/21/21 Treatment Diagnosis enephalopathy; a fib with RVR; difficulty in walking Onset Date 01/18/21 Precautions Other Precautions COVID (+) precautions M3 PT-IP Subjective Start: 01/20/21 08:30 Freq: NEEDED Status: Active Protocol: Document 01/25/21 11:01 CLB (Rec: 01/25/21 12:41 CLB [id number]) Subjective Physical Therapy Visit Type Type Treatment Note Visit Start Time 11:01 Visit Stop Time 11:16 Total Visit Minutes 15 Number of COMPLIANCE ADVISOR Visits 2 Physical Therapy Visit Comments Patient Comments pt is willing to do PT Therapy Pain Assessment Pain Present Pain Present Denied Pain M4 PT-IP Mobility and Gait Start: 01/20/21 08:30 Freq: NEEDED Status: Active Protocol: Document 01/25/21 11:01 CLB (Rec: 01/25/21 12:41 CLB [id number]) PT-Bed Mobility Assessment Supine to Sit Supine to Sit Standby Assistance,1 Person Assistance,Head of Bed Elevated Sit to Supine Sit to Supine Standby Assistance,1 Person Assistance,Head of Bed Elevated PT-Transfer Assessment Sit to and From Stand Sit to and from Stand Standby Assistance,1 Person Assistance Equipment Orthotic/Prosthetic Devices or Brace: No Transfers Transfer Destination Chair Transfer Ability Level of Assist Standby Assistance,1 Person Assistance Comments Mobility Comments Pt requiring SBA for bed mobility then stood SBA from bed. Pt ambulated in room ~ 100ft w/o AD SBA. Pt then sat in chair performing seated ther ex. Left pt in chair with all needs within reach and chair alarm on. Gait Assessment Gait Gait Assistance Required: Standby Assistance,1 Person Assist Distance (Feet) 100 Assistive Devices Orthotic/Prosthetic Devices or Brace: No Factors Limiting Gait Function Factors Limiting Gait Function Decreased Activity Tolerance, Decreased Strength,Poor Balance Comments Gait Comments see above PT-Balance Assessment Sitting Balance and Reactions Static Sitting Balance Ability Good Dynamic Sitting Balance Ability Fair Standing Balance and Reactions Static Standing Balance Ability Normal Dynamic Standing Balance Ability Good Device Used no AD M5 PT-IP Objective Assessments Start: 01/20/21 08:30 Freq: NEEDED Status: Active Protocol: Document 01/21/21 10:20 AW (Rec: 01/21/21 12:21 AW [id number]) Orientation Orientation/Cognition Level of Alertness Alert Orientation Name,Place,Situation Language Function Ability No Deficits Noted Safety Awareness Decreased Safety Awareness Gross Range of Motion Lower Extremity ROM Assessment Bilaterally Impaired Impairments slight knee flexion contracture bilaterally Strength Lower Extremity Strength Assessment Bilaterally Impaired Hip 3+/5 Knee 4-/5 Ankle 4-/5 Sensation Assessment Comments Sensation Comments Pt reports no sensation disturbance but may be a poor historian. M6 PT-IP Treatment Start: 01/20/21 08:30 Freq: NEEDED Status: Active Protocol: Document 01/25/21 11:01 CLB (Rec: 01/25/21 12:41 CLB [id number]) Physical Therapy Treatment Exercises Exercises Seated Knee Flexion/Extension Other Treatments Other Treatment Performed seated marches M7 PT-IP Assessment and Plan Start: 01/20/21 08:30 Freq: NEEDED Status: Active Protocol: Document 01/25/21 11:01 CLB (Rec: 01/25/21 12:41 CLB [id number]) PT Summary Assessment and Plan Potential Rehabilitation Potential Good Status of Condition at Evaluation Evolving Summary Impairments Pain,ROM,Strength,Balance, Cognition,Bed Mobility, Transfers,Gait,Activity Tolerance Assessment Summary Pt is SBA for all mobility and is able to ambulate w/o LOB SBA. Pt to d/c home with assist today. Goals Bed Mobility Goal Independent Transfer Goal Independent Gait Goal Independent Gait Distance 100 Days to Meet Goals 10 Frequency of Treatment Frequency Of Treatment Once a Day Treatment Plan Physical Therapy Treatment Plan Bed Mobility Training,Transfer Training,Gait Training, Therapeutic Exercise,Balance Retraining,Discharge Planning Precautions Other Precautions COVID (+) precautions Recommendations To Nursing Amount of Assist Needed 1 Person Assist
[2021-01-25 12:00] VITALS: BP 116/70; PULSE 76; RESP 18; TEMP 36.9; O2SAT 98
--- NOTE | 2021-01-25 12:25 | P.DS_ITS ---
History of Present Illness History of Present Illness Chief complaint: post covid, blood clots, confusion, weak Narrative: Mr. Beatty is a 65M he has a PMH of traumatic injury while young s/p b/l upper extremity amputation, remote hep C cirrhosis s/p liver/kidney transplant, recent diagnosis of diverticulitis in November 2020, recent COVID infection diagnosed about 3 weeks ago, recent DVT in R leg started on eliquis who is coming in for multiple reasons. His daughther noted that patient has not been back to his normal for the last month, but has more recently developed some confusion over the last 1-2 weeks where he talks jibberish per the daughter. He has been having pain in multiple areas including his abdomen, and he has chronic bilateral shoulder pain. He was having a minor cough, no shortness of breath, no fevers/chills. He was not having any vomiting or diarrhea, he was having nausea. No dysuria. His daughter notes he has been increasingly weak over the last few weeks and has not been able to get out of a chair easily. In the ED, he was noted to be tachycardic in afib with RVR to the 150s and got IV cardizem which improved rate to 100s and then was ordered for oral cardizem. He was intermittently in sinus and atrial fibrillation. The rest of his vitals were normal. Labs notable for WBC of 10.8 with 80% PMNs, hgb 11, INR 3, creatinine 1.06, lactate initially 2.1 then improved to 1.4 with fluids. AST 94, ALT 78, ammonia undetectable. Troponin negative. BNP 1750. Procalcitonin 0.11. TSH 1.07. UA showed no infection. Urine tox showed opiates, benzos, and marijuana. COVID was positive. Tacrolimus ordered. Chest xray showed no acute process. CT head showed no acute process. CT abdomen/pelvis showed distended bladder, transplanted kidney, diverticulosis. He was admitted for further treat ment. Discharge Providers Provider Date of admission: 01/19/21 13:53 Discharge Date: 01/25/21 Primary care physician: Rolf Pennington MD Consults: 01/18/21 17:39 Consult to Physical Therapy Evaluate & Treat Comment: Physician Instructions: Evaluate and Treat 01/19/21 21:10 Consult After Hours PICC Line RN Stat Comment: Discharge provider: Moo Anderson MD Summary Hospital Course Discharge Diagnosis: 1. Acute occlusive and nonocclusive right lung pulmonary embolism 2. Acute atrial fibrillation with RVR 3. Recent COVID-19 virus infection 4[address] MRI and CT findings suspicious for ampullary carcinoma 5. Acute metabolic encephalopathy 6. History of liver and kidney transplant 7. Acute urinary retention, resolved 8. Anemia 9. Hypokalemia, resolved 10. Hypomagnesemia, resolved Patient admitted for complaints of confusion and pain in multiple areas and found to have acute PE and AFib with RVR as well as ampullary lesion. Clinical condition is much much better to her patient is mentating normally, ambulating well and seems back to baseline in terms of how he is feeling. Problems addressed as follows: 1. Acute encephalopathy, probable metabolic, resolved -suspect metabolic -infection workup negative for pneumonia on imaging, negative for diverticulitis, negative for urinary infection -COVID positive, but not short of breath and not hypoxemic ----however could be having post Covid symptoms of confusion -also taking benzos, opiates, and marijuana which are most likely cause of symptoms -CT head unremarkable -brain MRI showed no acute process -tacro ordered by ED but drawn at random time, level >11, however will redraw for true trough, but unlikely tacro would cause this -other consideration was AJAY virus as patient s/p transplant which could cause PML, but MRI with no evidence of this 2. Atrial fibrillation with RVR, acute -noted to be in new afib in the ED -TSH normal -ECHO performed and showed small hyperdynamic LV, EF 75-80%, normal RV, normal heart valves -on anticoagulation for VTE with lovenox -has been rate controlled on metoprolol tartrate 3. Acute Pulmonary embolus -CTA: Small acute PE in right main pulmonary artery and right upper lobe pulmonary artery, occlusive PE in posterior segment right upper lobe pulmonary artery -patient had already been on eliquis for recent right leg DVT and was taking medications per family, unclear why patient had treatment failure -possibly failed in setting of probable malignancy, patient was switched to lovenox 70U BID, will continue as outpatient given possible procedure in near future and have him follow-up with transplant team on duration of anticoagulation therapy (probably at least 6 weeks and indefinite if patient remains in AFib) 4. 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 Arriola (GI) and Dr. Carrillo (hospitalist) who agree patient would benefit from ERCP or EUS -ordered CEA level which was 4.6 -at this point patient is quite medically stable, recently COVID positive, on Lovenox for acute PE and likely there is no harm from waiting a few weeks to have this lesion biopsied -discussed with patient and daughter Jenelle to contact Transplant Team post discharge so they can arrange for appropriate GI evaluation of this ampullary lesion 5. s/p Liver/kidney transplant, liver transplant was in and then again 94 from hep C, kidney transplant in 2009 reportedly due to atenolol/cyclosporine -ammonia normal -ordered prednisone, MMF, and tacro at home dose -tacro level ordered for trough 6. s/p bilateral upper extremity amputation, chronic pain with opioid and benzo dependency -has chronic pain as noted below with phantom limb pain -continue pain treatment with oxycodone -for benzos continue night dose of diazepam -try to avoid further medications to limit confusion 7. Acute urinary retention secondary to BPH, possibly worsened due to pain medications -already on tamsulosin b.i.d. and eliot continue -patient is voiding appropriately without Cuevas catheter 8. Mild anemia -hemoglobin of 11, dropped to 8.8, then stabilized. Given need for above endoscopic procedures will defer. -no evidence of bleed 9. Positive COVID PCR -diagnosed with COVID a few weeks ago, COVID positive on admission, no evidence of COVID pneumonia -not indicated for remdesivir or dexamethasone currently as not requiring oxygen -repeat COVID PCR testing on 01/24 is negative 10. Hypokalemia, resolved 11. hypomagnesemia, resolved -patient takes oral magnesium supplement at home Status at Discharge Cognitive/behavioral status at discharge: oriented Functional status at discharge: independent ambulation Overall status at discharge: patient is back to baseline Time Spent with Patient Time spent: Greater than 30 minutes Exam Vital Signs (past 8 hours): - 01/25/21 08:00 01/25/21 10:45 Temperature 98.1 F Pulse Rate 79 Respiratory Rate 17 Blood Pressure 127/77 Pulse Oximetry 98 99 Oxygen Delivery Method Room Air Oxygen Flow Rate 0 Objective Labs Result Diagrams: 01/24/21 05:35 01/24/21 05:35 Labs: Laboratory Results - last 24 hr 01/24/21 01/25/21 20:15 05:23 PT 17.3 H INR 1.5 H SARS-CoV-2 (PCR) Negative PFSH Family History (Updated 01/18/21 @ 18:58 by Aaron Renae MD) Daughter Brain cancer Social History household members: family and children Smoking Status: Former smoker alcohol intake: never Discharge Plan Discharge Plan Patient Disposition: Home Provider Discharge Comment: Follow up with transplant team for referral to GI for ampullary lesion seen on CT and MRI. Continue on Lovenox for pulmonary embolism, DVT and new diagnosis of atrial fibrillation. Final duration of Lovenox therapy to be determined by transplant team but probably at least 6 weeks. The Lovenox is being prescribed instead of Eiquis (apixaban). You will also need to follow up with PCP/cardiology for atrial fibrillation (a fib). We have prescribed metoprolol to control your heart rate so it doesn't get too high with the a fib. Discharge orders & Medications Prescriptions: New enoxaparin [Lovenox] 80 mg/0.8 mL Syringe 70 mg SUBCUT BID Qty: 48 RF: 0 metoprolol tartrate 50 mg Tablet 50 mg PO BID Qty: 60 RF: 0 Continued diazepam 10 MG tablet 10 mg PO BEDTIME Qty: 0 RF: 0 prednisone 5 MG tablet 5 mg PO QAM Qty: 0 RF: 0 mycophenolate sodium [Myfortic] 360 MG tablet,delayed release (DR/EC) 360 mg PO BID Qty: 0 RF: 0 tacrolimus 1 mg Capsule 1 mg PO QAM RF: 0 tacrolimus 1 mg Capsule 0.5 mg PO BEDTIME RF: 0 melatonin 3 mg Tablet 6 mg PO BEDTIME RF: 0 triamcinolone acetonide 0.1 % Cream 1 applic TOPICAL DAILY PRN (Reason: Rash) RF: 0 tamsulosin 0.4 mg Capsule 0.4 mg PO BID RF: 0 magnesium 250 mg Tablet 250 mg PO BEDTIME RF: 0 albuterol sulfate 90 mcg/actuation Hfa Aerosol Inhaler 1 puff INHALATION QID PRN (Reason: sob) RF: 0 oxycodone 5 mg Tablet 5 mg PO BEDTIME RF: 0 levothyroxine 100 mcg Capsule 100 mcg PO QAM RF: 0 dorzolamide-timolol bottle 1 drp EYE-BOTH BID RF: 0 latanoprost 1 drp EYE-BOTH BEDTIME RF: 0 Discontinued Eliquis 5 mg tablet 5 mg PO BID RF: 0 Follow up/Referrals: Rolf Pennington MD [Primary Care Provider] - Diet/Activity/Treatments Diet: Regular Discharge Data Primary Care Provider: Rolf Pennington
--- NOTE | 2021-01-25 13:43 | PC.NURSE ---
Addendum entered by Tsering Guevara R.N. 01/25/21 13:51: Dressed with moderate assist of daughter, home with bilateral upper arm prosthetics. Addendum entered by Tsering Guevara R.N. 01/25/21 13:51: In addition to F/U with Liver transplant, cardiology for new Dx Afib. Original Note: Discharge note: Discharge instructions given to both patient and daughter Fatuma. Discussed importance of F/U with Liver transplant medical [facility], continue Lovenox SQ therapy x 6 weeks, new Afib dx information, and home safety. SQ injection teaching performed with daughter. Both verbalized understanding of instructions. Home via private vehicle accompanied by daughter.
--- NOTE | 2021-01-25 14:08 | CM.DPNOTE ---
DC Note Dr Anderson discharging patient today and recommending close outpatient f/u w/ [facility] DC order in place, DC home w/family assist. Dtr Fatuma transported home. According to DANIEL Cagle, neither patient or dtr Fatuma are interested in HH at this time. Patient denies needs from this [employer] Plan: DC home w/family to assist and close outpatient f/u recommended JW
== END 2021-01-25 13:54 | disposition home or self-care (01) | DRG 70 ==
LOC: ED 16:47 → AC 16:58
PROVIDERS: Internal Medicine; Admitting Provider Internal Medicine; Emergency Provider Emergency Medicine; PCP Family Medicine; Referring Provider Emergency Medicine; Visit Provider Internal Medicine
DX: G93.41 Metabolic encephalopathy (principal); I26.99 Other pulmonary embolism without acute cor pulmonale; D68.9 Coagulation defect, unspecified; Z48.23 Encounter for aftercare following liver transplant; Z48.22 Encounter for aftercare following kidney transplant; C24.1 Malignant neoplasm of ampulla of Vater; E87.6 Hypokalemia; E83.42 Hypomagnesemia; G89.29 Other chronic pain; R74.01 Elevation of levels of liver transaminase levels; N40.1 Benign prostatic hyperplasia with lower urinary tract symptoms; I48.91 Unspecified atrial fibrillation; R33.8 Other retention of urine; Z79.01 Long term (current) use of anticoagulants; Z89.112 Acquired absence of left hand; Z89.111 Acquired absence of right hand; Z86.16 Personal history of COVID-19
CPT/HCPCS: 36415; 36592; 51702; 70450; 70551; 71045; 71275; 74177; 74183; 80048; 80053; 80076; 80197; 80305; 81001; 81003; 82140; 82378; 82550; 82962; 83605; 83690; 83735; 83880; 84145; 84443; 84484; 85007; 85025; 85027; 85379; 85384; 85610; 85730; 87040; 87635; 93005; 93010; 93306; 94760; 96361; 96374; 96375; 96376; 97110; 97116; 97163; 97530; 99285; C9803; G0378; A9579; C9113; J1642; J1644; J1650; J1940; J2270; J3475; J7507; Q9967

== ENCOUNTER → 2022-02-10 07:47 | Outpatient (CLI) | payer MEDICARE, OTHER, SELFPAY ==
[2021-01-22 21:23] VITALS: BMI 23.3
[2022-02-10 09:29] LABS: Add Manual Diff / Slide Review NO; Basophils Absolute Auto 0 /uL (0-100); Basophils Percent Auto 0.5 % (0-2); Eosinophils Absolute Auto 300 /uL (0-450); Eosinophils Percent Auto 4.6 % (2-4); Hematocrit 40.6 % (41-53); Hemoglobin 13.5 g/dL (13.5-17.5); Lymphocytes Absolute Auto 2600 /uL (1100-4500); Lymphocytes Percent Auto 38.4 % (25-40); Mean Corpuscular HGB Conc 33.2 % (30-36); Mean Corpuscular Hemoglobin 28.4 PG (26-34); Mean Corpuscular Volume 85.5 fL (80-100); Monocytes Absolute Auto 700 /uL (0-900); Monocytes Percent Auto 10.4 % (3-14); Neutrophils Absolute Auto 3100 /uL (1500-7000); Neutrophils Percent Auto 46.1 % (50-75); Platelet Count 153 X10^3/uL (150-400); Red Blood Cell Count 4.75 X10^6/uL (4.5-5.9); Red Cell Distribution Width 14.2 % (11.6-14.8); White Blood Cell Count 6.8 X10^3/uL (4.5-11.0)
[2022-02-10 10:10] LABS: Alanine Aminotransferase 21 IU/L (<50); Albumin Globulin Ratio 1.5 (1.0-2.8); Alkaline Phosphatase 41 U/L (38-126); Aspartate Aminotransferase 22 IU/L (17-59); BUN Creatinine Ratio 19.6 (6-22); Bilirubin Total 0.4 mg/dL (0.2-1.3); Blood Urea Nitrogen 21 mg/dL (9-20); Calcium 9.1 mg/dL (8.4-10.2); Carbon Dioxide 27 mmol/L (22-32); Chloride 103 mmol/L (98-107); Cholesterol 146 mg/dL (140-199); Estimated Glomerular Filt Rate > 60 mL/min (>60); Globulin 2.6 g/dL (1.7-4.1); Glucose 94 mg/dL (80-110); HDL Cholesterol 58 mg/dL (40-60); HEMOLYSIS < 15 (0-50); LDL Cholesterol Calculated 76 mg/dL (<100); Magnesium 1.7 mg/dL (1.6-2.3); Potassium 4.4 mmol/L (3.4-5.1); Sodium 138 mmol/L (137-145); Total Protein 6.6 g/dL (6.3-8.2); Triglycerides 62 mg/dL (35-150)
[2022-02-10 10:25] LABS: Free T4, Direct Thyroxine 1.23 ng/dL (0.78-2.19); Vitamin D 25 Hydroxy (D3) 63.1 ng/mL (30.0-100.0)
[2022-02-10 10:39] LABS: Thyroid Stimulating Hormone 4.19 uIU/mL (0.47-4.68)
[2022-02-10 10:58] LABS: Vitamin B12 692 pg/mL (239-931)
[2022-02-10 11:57] LABS: COVID19 -Nasal RAPID Negative (Negative)
== END ==
PROVIDERS: Surgery; PCP Family Medicine; Referring Provider Family Medicine; Visit Provider Family Medicine
DX: E83.42 Hypomagnesemia (principal); E03.9 Hypothyroidism, unspecified; I10 Essential (primary) hypertension; Z79.899 Other long term (current) drug therapy; K25.9 Gastric ulcer, unspecified as acute or chronic, without hemorrhage or perforation; N40.0 Benign prostatic hyperplasia without lower urinary tract symptoms; Z94.4 Liver transplant status; E55.9 Vitamin D deficiency, unspecified; M12.811 Other specific arthropathies, not elsewhere classified, right shoulder; Z01.812 Encounter for preprocedural laboratory examination; Z20.822 Contact with and (suspected) exposure to COVID-19
CPT/HCPCS: 36415; 80053; 80061; 80197; 82306; 82607; 83735; 84439; 84443; 85025; 87635; C9803

== ENCOUNTER 2022-02-11 09:23 | Day surgery (SDC) | payer MEDICARE, OTHER, SELFPAY ==
[2021-01-22 21:23] VITALS: BMI 23.3
--- NOTE | 2022-02-11 | PATH_ITS ---
[facility] Accession Number: [id number] . 01 Material submitted: . PART A: cecum - CECUM PART B: colon - DESCENDING POLYP 60CM . 01 Clinical history: . [facility] [place] ENCOUNTER FOR SCREENING FOR MALIGNANT NEOPLASM . 01 Diagnosis: A. Cecum, Biopsy: Tubular adenoma. . B. Descending Colon Polyp at 60 cm, Biopsy: Tubular adenoma. MRV 02/13/2022 1028 Local . 01 Electronically signed: . Nia Wall MD, Pathologist NPI- [id number] . 01 Gross description: . Part A: CECUM: Received in formalin is 1 fragment(s) of hayes, soft tissue measuring 0.3 x 0.2 x 0.2 cm submitted entirely in 1 cassette(s) Part B: DESCENDING POLYP 60CM: Received in formalin is 1 fragment(s) of hayes, soft tissue measuring 0.5 x 0.2 x 0.2 cm submitted entirely in 1 cassette(s) /CPE 02/12/2022 0824 Local . 01 Pathologist provided ICD-10: D12.0, D12.4 . 01 CPT . 866803, [id number] Specimen Comment: A courtesy copy of this report has been sent to [phone] Performed at: 01 [facility] [address] [facility], [place], [place] [id number] MD Eladio Phipps MD Phone: [phone]
[2022-02-11 09:52] VITALS: BP 152/91; PULSE 77; RESP 16; TEMP 36.7; O2SAT 100; BMI 25.8
[2022-02-11] MEDS: LACTATED RINGERS 1,000 ML 200 ML IV (10:12)
--- NOTE | 2022-02-11 10:48 | PM.PREOP ---
Pre-operative Note Interval Note History & Physical reviewed/Exam performed by Physician: Yes Changes to H&P: No
--- NOTE | 2022-02-11 11:11 | SUR.OPER ---
1108: Due to extensive medical Hx, and tolerance to medications due to home medications- curriculum assistant Rolf Dela Cruz took over care for sedation DANIEL Neumann. See anesthesia record.
[2022-02-11] MEDS: fentaNYL 250 MCG/5 ML INJ 100 MCG IV (11:48)
[2022-02-11] MEDS: MIDAZOLAM 5 MG/5 ML VIAL IV (11:48)
--- NOTE | 2022-02-11 11:51 | P.OP.COLON_ITS ---
Operative Date/Time/Diagnoses Date of procedure: 02/11/22 Time of procedure: 11:51 Pre-op diagnosis: Screening colonoscopy Post-op diagnosis: other (Colonic polyps) Procedure & Clinicians Study performed: Colonoscopy and polypectomy Same procedure as scheduled: Yes Indications: Screening Surgeon: Win Dumont Procedure Notes Procedure in detail: The history and physical was performed/updated and the patient is ASA class is 3. The procedure was discussed in detail with the patient. Potential risks complications including infection, bleeding, missed diagnosis, perforation, need for surgery, and were explained. Their questions were answered and informed consent was obtained. Patient was brought to the procedure room and placed standard monitoring equipment. The patient's vital signs were monitored continuously throughout the entire procedure. Prior to starting time-out was performed. The patient was placed in the left lateral recumbent position. Procedural sedation was administered by Anesthesia. Examination began with a thorough inspection of the perianal area there was no evidence of fissures, fistulae, external hemorrhoids or cutaneous malignancy. The colonoscopy scope was then placed into the anal canal and was advanced to the cecum, which was identified by the ileocecal valve, the appendiceal orifice and the confluence of the taenia. The scope was then slowly withdrawn examining colon thoroughly in all directions, irrigating it of any residual stool. FINDINGS 1. 5 mm polyp within the cecum removed with cold snare 2. 8 mm polyp in the descending colon 60 cm from the anal verge removed with col d snare. Technically difficult as the polyp was deep within a mucosal fold 3. Sigmoid diverticulosis The patient tolerated the procedure well. They will be discharged once criteria are met. The prep was of good/excellent quality. The withdrawl time was 20 minutes. Specimen(s): other (Cecum, descending colon) Impression: Colonic polyps Post-procedure Recommendations: Colonoscopy in 5 years Disposition: same day surgery
[2022-02-11 11:57] VITALS: BP 115/70; PULSE 72; RESP 15; TEMP 36.9; O2SAT 94
[2022-02-11 12:02] VITALS: BP 117/69; PULSE 71; RESP 11; O2SAT 98
[2022-02-11 12:07] VITALS: BP 124/73; PULSE 66; RESP 14; O2SAT 95
[2022-02-11 12:12] VITALS: BP 125/75; PULSE 72; RESP 17; O2SAT 98
[2022-02-11 12:17] VITALS: BP 134/87; PULSE 71; RESP 20; O2SAT 98
== END 2022-02-11 12:31 | disposition home or self-care (01) ==
PROVIDERS: PCP Family Medicine; Referring Provider Surgery; Visit Provider Surgery
PROC: 0DJD8ZZ Inspection of Lower Intestinal Tract, Via Natural or Artificial Opening Endoscopic (ICD-10-PCS; CPT 45378; principal; 2022-02-11 10:45)
DX: Z12.11 Encounter for screening for malignant neoplasm of colon (principal); D12.0 Benign neoplasm of cecum; D12.4 Benign neoplasm of descending colon; K57.30 Diverticulosis of large intestine without perforation or abscess without bleeding; Z86.010 Personal history of colon polyps; I48.0 Paroxysmal atrial fibrillation; Z79.01 Long term (current) use of anticoagulants; Z94.4 Liver transplant status; Z94.0 Kidney transplant status; Z87.891 Personal history of nicotine dependence
CPT/HCPCS: 45385; 99152; J2250; J2704; J3010

== ENCOUNTER → 2022-04-02 15:42 | Outpatient (CLI) | payer MEDICARE, OTHER, SELFPAY ==
[2021-01-22 21:23] VITALS: BMI 23.3
--- NOTE | 2022-04-02 | DI.RAD.S_ITS ---
PROCEDURE: XR CHEST 2V INDICATIONS: cough TECHNIQUE: 2 views of the chest were acquired. COMPARISON: [facility], CT, CT ANGIO CHEST PE PROTOCOL, 01/19/2021, 16:49. [facility], CR, XR CHEST 1V, 01/18/2021, 9:09. [facility], CR, XR CHEST FOR PICC 1V, 01/20/2021, 1:42. FINDINGS: Surgical changes and devices: None. Lungs and pleura: Lungs are clear. No pleural effusions or pneumothorax. Blunting of the right costophrenic angle is unchanged compared to prior x-rays. There is a 9 x 17 mm nodule in the right mid lung which correlates with a bone island seen on prior CT. Mediastinum: Mediastinal contours are normal. Heart size is normal. Bones and chest wall: No suspicious bony abnormalities. Soft tissues appear unremarkable. IMPRESSION: No acute cardiopulmonary abnormality. Dictated by: Petr Smith M.D. on 04/02/2022 at 18:01 Approved by: Petr Smith M.D. on 04/02/2022 at 18:08
== END ==
PROVIDERS: PCP Family Medicine; Referring Provider Family Medicine; Visit Provider Family Medicine
DX: R05.9 Cough, unspecified (principal)
CPT/HCPCS: 71046

== ENCOUNTER 2022-05-13 17:05 | Emergency (ER) | payer MEDICARE, OTHER, SELFPAY ==
[2021-01-22 21:23] VITALS: BMI 23.3
[2022-05-13 17:15] VITALS: BP 194/104; RESP 18; TEMP 36.6; BMI 28.7
[2022-05-13 17:44] VITALS: PULSE 74; O2SAT 100
[2022-05-13 17:45] VITALS: BP 149/78; PULSE 75; O2SAT 100
[2022-05-13 18:00] VITALS: PULSE 72; O2SAT 99
--- NOTE | 2022-05-13 18:18 | ED_ITS ---
HPI - Skin/Abscess/Foreign Bdy General Chief complaint: Skin/Abscess/Foreign Body Stated complaint: his hook slipped and gouged his leg,? 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 He was trying to tie his shoe and accidentally jabbed the hook of his right upper extremity prosthetic through his pants and into his anterior bravo a few days ago. There is the development of some redness surrounding the wound but no swelling, drainage or lymphangitis. He has no systemic complaints such as fever, chills nor nausea or vomiting. He is otherwise at his baseline and free of complaint Related Data Home Medications Medication Instructions Recorded Confirmed diazepam 10 mg tablet 10 mg PO BEDTIME ##0 02/13/12 02/11/22 mycophenolate sodium 360 mg 360 mg PO BID ##0 02/13/12 02/11/22 tablet,delayed release (Myfortic) prednisone 5 mg tablet 5 mg PO QAM ##0 02/13/12 02/11/22 levothyroxine 100 mcg capsule 100 mcg PO QAM 01/18/21 02/11/22 magnesium 250 mg tablet 250 mg PO BEDTIME 01/18/21 01/18/21 melatonin 3 mg tablet 6 mg PO BEDTIME 01/18/21 02/11/22 oxycodone 5 mg tablet 5 mg PO BEDTIME 01/18/21 01/17/22 tacrolimus 1 mg capsule, 0.5 mg PO BEDTIME 01/18/21 02/11/22 immediate-release tacrolimus 1 mg capsule, 1 mg PO QAM 01/18/21 01/17/22 immediate-release tamsulosin 0.4 mg capsule 0.4 mg PO BID 01/18/21 02/11/22 latanoprost 1 drp EYE-BOTH BEDTIME glaucoma 01/19/21 01/19/21 apixaban 5 mg tablet (Eliquis) 5 mg PO BID 01/17/22 02/11/22 Previous Rx's Medication Instructions Recorded doxycycline hyclate 100 mg tablet 100 mg PO BID #20 tabs 05/13/22 Allergies Allergy/AdvReac Type Severity Reaction Status Date / Time hydromorphone [From Dilaudid] AdvReac Agitated Verified 01/17/22 14:09 Review of Systems Review of Systems Narrative: GENERAL: Denies chills, fatigue, malaise, fever, sweats. HEENT: Denies sinus pain, ear pain, sore throat, difficulty swallowing, dizziness. RESPIRATORY: Denies dyspnea, cough, wheezing, hemoptysis, sputum. CARDIOVASCULAR: Denies chest pain, palpitations, orthopnea, edema, GASTROINTESTINAL: Denies nausea, vomiting, abdominal pain, diarrhea, constipation, melena. : Denies dysuria, frequency, incontinence, hematuria, urinary retention. MUSCULOSKELETAL: denies weakness, joint pain, or bony pain SKIN: D see HPI NEUROLOGIC: Denies weakness, headache, numbness, change in speech, confusion, seizures, incoordination. PSYCHIATRIC: No concerning psychosocial issues. 12 point review of systems is negative except for those stated above Patient History Family History Daughter Brain cancer Social History details: lives with daughter, son-in-law and grandkids household members: family and children lives independently: Yes Smoking Status: Former smoker alcohol intake: never Smoking Status: Former smoker alcohol intake frequency: other Substance Use Type: does not use Exam Narrative Exam Narrative: GENERAL: [67] year old patient appears stated age. Well-developed patient, in no obvious distress. GCS 15 HEAD: Atraumatic. Normocephalic. EYES: Pupils equal round and reactive. Extraocular motions intact. No scleral i cterus. No injection or drainage. ENT: Nose without bleeding, purulent drainage. Throat without erythema, tonsillar hypertrophy or exudate. Airway patent. NECK: Trachea midline. Non tender CARDIOVASCULAR: Regular rate and rhythm without murmurs, gallops, or rubs. RESPIRATORY: Clear to auscultation. Breath sounds equal bilaterally. No wheezes, rales, or rhonchi. GASTROINTESTINAL: Abdomen soft, non-tender, nondistended. EXTREMITIES: 1 cm superficial abrasion left anterior bravo with surrounding erythema but no induration or fluctuance. No drainage and no lymphangitis. BACK: Nontender without deformity or crepitance. No flank tenderness. NEURO: AOx3. SKIN: No rash or erythema of visible areas Initial Vital Signs Initial Vital Signs: Vital Signs Temperature 97.9 F 05/13/22 17:15 Respiratory Rate 18 05/13/22 17:15 Blood Pressure 194/104 H 05/13/22 17:15 Course Orders Ordered: ED Orders 05/13/22 17:54 Wound Culture and Gram Stain Stat Doxycycline Hyclate (Doxycycline Hyclate 100 Mg Tablet) 100 mg PO NOW ONE Stop: 05/13/22 19:27 Discontinued Medications Diphtheria/Tetanus/Acell Pertussis (Tet,Diph,Pertuss(Acell),Vac/Pf 0.5 Ml Syringe) 0.5 ml IM .ONCE ONE Stop: 05/13/22 19:17 Doxycycline Hyclate (Doxycycline Hyclate 100 Mg Tablet) 100 mg PO NOW ONE Stop: 05/13/22 19:17 Vital Signs Vital signs: Vital Signs - 8 hr 05/13/22 17:15 05/13/22 17:44 05/13/22 17:45 Temperature 97.9 F Pulse Rate 74 75 Respiratory Rate 18 Blood Pressure 194/104 H Pulse Oximetry 100 100 05/13/22 17:45 05/13/22 18:00 Temperature Pulse Rate 72 Respiratory Rate Blood Pressure 149/78 H Pulse Oximetry 99 MDM - Skin/Abscess/Foreign Bdy MDM Narrative Medical decision making narrative: Patient well-appearing with reassuring history and physical exam has left anterior lower extremity wound with subtle signs of infection. He has no systemic complaints such as fever, chills nor nausea, vomiting or weakness. He has no drainage and has stable vitals. Return precautions given and questions answered to his apparent satisfaction Discharge Plan Departure Patient Disposition: Home Clinical Impression: Wound infection Instructions: DI for Wound Infection Activity Restrictions/Additional Instructions: *You have been diagnosed with [left lower extremity wound infection] *What to do: *Please continue to take your regular medications as directed. [x ] New medication prescriptions sent to your pharmacy: [ [facility]] [ ] New medication written as a paper prescription [ ] No new medications given *Please follow up with your primary care provider in 2-3 days, call for an appointment. Let them know you were seen in the Emergency Department and that we ask that you be seen in follow up. We will electronically transmit a record of today's note if your PCP is in our system *If you do not have a primary care provider please contact the [facility] Resource line at [phone]. They will ask some questions about your medical history and help get you set up with a doctor in the community. *Return to Emergency Department if you should have any new, worsening or concerning symptoms, such as [fever greater than 101 F, shaking chills, worsening pain, persistent vomiting or other bothersome symptoms] Prescriptions: New doxycycline hyclate 100 mg tablet 100 mg PO BID Qty: 20 0RF No Action diazepam 10 MG tablet 10 mg PO BEDTIME Qty: 0 prednisone 5 MG tablet 5 mg PO QAM Qty: 0 mycophenolate sodium [Myfortic] 360 MG tablet,delayed release (DR/EC) 360 mg PO BID Qty: 0 Eliquis 5 mg tablet 5 mg PO BID tacrolimus 1 mg Capsule 1 mg PO QAM Label Comments: brought in green pill that is 1mg dose tacrolimus 1 mg Capsule 0.5 mg PO BEDTIME Label Comments: brought in red pill which is 0.5mg melatonin 3 mg Tablet 6 mg PO BEDTIME tamsulosin 0.4 mg Capsule 0.4 mg PO BID magnesium 250 mg Tablet 250 mg PO BEDTIME oxycodone 5 mg Tablet 5 mg PO BEDTIME levothyroxine 100 mcg Capsule 100 mcg PO QAM latanoprost 1 drp EYE-BOTH BEDTIME Rx Instructions: 0.005% opthalmic solution 1 drop both eyes at bedtime Referrals: Rolf Pennington MD [Primary Care Provider] -
[2022-05-13] MEDS: TET,DIPH,PERTUSS(ACELL),VAC/PF 0.5 ML SYRINGE IM (19:47)
[2022-05-13] MEDS: DOXYCYCLINE HYCLATE 100 MG TABLET PO (19:47)
[2022-05-13 19:57] VITALS: BP 132/77; PULSE 80; RESP 16; TEMP 35.9; O2SAT 100
== END 2022-05-13 20:03 | disposition home or self-care (01) ==
PROVIDERS: Emergency Provider Emergency Medicine; PCP Family Medicine
DX: S80.812A Abrasion, left lower leg, initial encounter (principal); L08.89 Other specified local infections of the skin and subcutaneous tissue; Z23 Encounter for immunization
CPT/HCPCS: 87070; 87075; 87077; 87147; 87186; 87205; 90471; 99283; 90715

== ENCOUNTER → 2022-05-27 08:31 | Outpatient (CLI) | payer MEDICARE, OTHER, SELFPAY ==
[2021-01-22 21:23] VITALS: BMI 23.3
[2022-05-27 10:49] LABS: Add Manual Diff / Slide Review NO; Basophils Absolute Auto 100 /uL (0-100); Basophils Percent Auto 0.8 % (0-2); Eosinophils Absolute Auto 300 /uL (0-450); Eosinophils Percent Auto 3.8 % (2-4); Hematocrit 43.5 % (41-53); Hemoglobin 14.1 g/dL (13.5-17.5); Lymphocytes Absolute Auto 2900 /uL (1100-4500); Mean Corpuscular HGB Conc 32.5 % (30-36); Mean Corpuscular Volume 83.1 fL (80-100); Monocytes Absolute Auto 700 /uL (0-900); Monocytes Percent Auto 10.5 % (3-14); Neutrophils Absolute Auto 3200 /uL (1500-7000); Neutrophils Percent Auto 44.9 % (50-75); Platelet Count 167 X10^3/uL (150-400); Red Blood Cell Count 5.23 X10^6/uL (4.5-5.9); Red Cell Distribution Width 14.7 % (11.6-14.8); White Blood Cell Count 7.1 X10^3/uL (4.5-11.0)
[2022-05-27 11:15] LABS: Alanine Aminotransferase 17 IU/L (<50); Albumin Globulin Ratio 1.5 (1.0-2.8); Alkaline Phosphatase 55 U/L (38-126); Aspartate Aminotransferase 20 IU/L (17-59); BUN Creatinine Ratio 12.6 (6-22); Bilirubin Total 0.6 mg/dL (0.2-1.3); Blood Urea Nitrogen 15 mg/dL (9-20); Calcium 9.2 mg/dL (8.4-10.2); Carbon Dioxide 26 mmol/L (22-32); Chloride 103 mmol/L (98-107); Cholesterol 131 mg/dL (140-199); Estimated Glomerular Filt Rate > 60 mL/min (>60); Globulin 2.7 g/dL (1.7-4.1); Glucose 91 mg/dL (80-110); HDL Cholesterol 48 mg/dL (40-60); LDL Cholesterol Calculated 60 mg/dL (<100); Sodium 138 mmol/L (137-145); Total Protein 6.7 g/dL (6.3-8.2); Triglycerides 116 mg/dL (35-150)
[2022-05-29 07:47] LABS: HEMOLYSIS < 15 (0-50); Magnesium 1.6 mg/dL (1.6-2.3)
[2022-05-29 08:19] LABS: Prostate Specific Antigen Scrn 0.501 ng/mL (0.1-4.0)
== END ==
PROVIDERS: PCP Family Medicine; Referring Provider Family Medicine; Visit Provider Family Medicine
DX: Z12.5 Encounter for screening for malignant neoplasm of prostate (principal); E03.9 Hypothyroidism, unspecified; I48.0 Paroxysmal atrial fibrillation; Z79.899 Other long term (current) drug therapy; Z94.4 Liver transplant status; Z48.298 Encounter for aftercare following other organ transplant; E83.42 Hypomagnesemia
CPT/HCPCS: 36415; 80053; 80061; 83735; 85025; G0103

== ENCOUNTER → 2023-05-15 14:00 | Outpatient (CLI) | payer MEDICARE, OTHER, SELFPAY ==
[2021-01-22 21:23] VITALS: BMI 23.3
--- NOTE | 2023-05-15 14:02 | DI.RAD.S_ITS ---
PROCEDURE: XR KUB INDICATIONS: Rule out bladder calculus TECHNIQUE: One view of the abdomen acquired. COMPARISON: [facility], CT, CT ABDOMEN PELVIS W CON, 01/18/2021, 17:28. FINDINGS: Surgical changes and devices: Few surgical clips are seen projecting over the abdomen and pelvis.. Bowel: Bowel gas pattern is normal. Soft tissues: No suspicious abdominal calcifications. Atrophic renal shadows are seen. Possible renal calcifications are present in the [place] kidneys, likely chronic. Atherosclerotic vascular calcifications including a tortuous splenic artery. There is a 7 millimeter calcific density projecting over the lower pelvis, bladder calculus cannot be excluded. Bones: No suspicious bony lesions. IMPRESSION: There is a 7 millimeter calcific density projecting over the lower pelvis, bladder calculus cannot be excluded. Dictated by: Eddie Sevilla M.D. on 05/15/2023 at 14:36 Approved by: Eddie Sevilla M.D. on 05/15/2023 at 14:41
[2023-05-15 16:12] LABS: Prostate Specific Antigen 0.388 ng/mL (0.10-4.00)
== END ==
PROVIDERS: PCP Family Medicine; Referring Provider Urology; Visit Provider Urology
DX: N39.8 Other specified disorders of urinary system (principal); R39.9 Unspecified symptoms and signs involving the genitourinary system; D84.9 Immunodeficiency, unspecified; R33.9 Retention of urine, unspecified; R30.0 Dysuria; Z87.898 Personal history of other specified conditions; Z92.89 Personal history of other medical treatment
CPT/HCPCS: 36415; 51798; 74018; 84153; 99214

== ENCOUNTER → 2023-09-23 11:49 | Outpatient (CLI) | payer MEDICARE, OTHER, SELFPAY ==
[2021-01-22 21:23] VITALS: BMI 23.3
--- NOTE | 2023-09-23 11:51 | DI.ECHO.S_ITS ---
[facility] +---------+ : : [address] : : : : [id number] : : : : Phone: [phone]+ Echocardiogram Report + + :Name: RANDALL STRINGER Study Date: 09/23/2023 Height: 69 in : :[facility] ReadingLocation: Weight: 187 lb : : Gender: Male BSA: 2.0 m2 : :: 1955 Age: 68 yrs BP: 145/92 mmHg: :Reason For Study: ATRIAL FIBRILLATION : :Ordering Physician: JOE, : :VICKI Mckeon Performed By: Ni Dallas : :Referring: VICKI DIAZ : + + Interpretation Summary The left ventricle is normal in size. Left ventricular systolic function is normal. The ejection fraction is estimated to be 60-65%. There are no obvious focal wall motion abnormalities noted but poor endocardial definition reduces the sensitivity for the detection of such. Diastolic parameters suggest a relaxation abnormality of the left ventricle, consistent with probable normal filling pressures. The right ventricle is mildly dilated. The right ventricular systolic function is normal. The left atrial size is normal. There is no significant valvular heart disease. The ascending aorta is mildly enlarged. Procedure: A two-dimensional transthoracic echocardiogram with color flow and Doppler was performed. The study quality was technically difficult. Comparison is made with the echocardiogram of 01/19/2021. The patient was in sinus rhythm with heart rates between 61-73 bpm during the exam. Left Ventricle: The left ventricle is normal in size. There is mild concentric left ventricular hypertrophy. Left ventricular systolic function is normal. The ejection fraction is estimated to be 60-65%. There are no obvious focal wall motion abnormalities noted but poor endocardial definition reduces the sensitivity for the detection of such. Diastolic parameters suggest a relaxation abnormality of the left ventricle, consistent with probable normal filling pressures. Right Ventricle: The right ventricle is mildly dilated. The right ventricular systolic function is normal. Atria: The left atrial size is normal. Right atrial size is normal. There is no Doppler evidence for an interatrial shunt. Mitral Valve: There is mild mitral annular calcification. The mitral valve leaflets appear borderline thickened, but open well. There is no mitral regurgitation noted. Aortic Valve: The aortic valve is not well visualized. The aortic valve is grossly normal. There is no aortic valve stenosis. No aortic regurgitation is present. Tricuspid Valve: The tricuspid valve is not well visualized, but is grossly normal. Pulmonary artery pressures cannot be estimated because of the lack of a measurable TR jet velocity. No tricuspid regurgitation. Pulmonic Valve: The pulmonic valve is not well visualized. There is no pulmonic valvular regurgitation. There is no significant valvular heart disease. Great Vessels: The aortic root is normal size. The ascending aorta is mildly enlarged. The IVC is of normal diameter and collapses greater than 50% with a sniff. This suggests a low right atrial pressure of 3 mm Hg. Pericardium/ Pleura There is no pericardial effusion. There is no pleural effusion. MMode/2D Measurements & Calculations LVIDd: 4.1 cm LVOT diam: 2.1 cm LVIDs: 2.5 cm Ao root diam: 3.5 cm FS: 38.6 % asc Aorta Diam: 3.8 cm IVSd: 1.2 cm LVPWd: 1.1 cm LV alfaro. diameter/BSA (cm/m^2): 2.0 LV sys. diameter/BSA (cm/m^2): 1.2 LA A2 area: 18.5 cm2 RA long axis: 5.3 cm LA A4 area: 16.6 cm2 RA area: 16.3 cm2 LA length (vol): 5.2 cm RA vol: 42.8 ml LA vol: 50.5 ml RA : 21.3 ml/m2 LA vol index: 25.1 ml/m2 IVC diam: 1.3 cm RVD1 (basal): 4.4 cm TAPSE: 2.0 cm Doppler Measurements & Calculations Ao V2 max: 82.2 cm/sec LVOT Max Manolo: 78.0 cm/sec Ao V2 mean: 64.8 cm/sec LV V1 max P.4 mmHg Ao max P.7 mmHg LV V1 VTI: 18.6 cm Ao mean P.8 mmHg ANGIE(I,D): 3.3 cm2 Ao V2 VTI: 19.5 cm ANGIE(V,D): 3.3 cm2 sev ratio: 0.96 ANGIE indexed to BSA (cm^2/m^2): 1.6 MV E max manolo: 59.9 cm/sec SV(LVOT): 63.9 ml MV A max manolo: 69.6 cm/sec MV E/A: 0.86 Med Peak E' Manolo: 7.0 cm/sec E/E' med: 8.5 Lat Peak E' Manolo: 11.3 cm/sec E/E' lat: 5.3 E/e' average: 6.9 MV dec time: 0.25 sec Reading Physician:05:46 PM
== END ==
PROVIDERS: PCP Family Medicine; Referring Provider Family Medicine; Visit Provider Family Medicine
DX: I34.81 Nonrheumatic mitral (valve) annulus calcification (principal); I77.89 Other specified disorders of arteries and arterioles; I48.0 Paroxysmal atrial fibrillation
CPT/HCPCS: 93306

== ENCOUNTER → 2024-02-05 11:21 | Outpatient (CLI) | payer MEDICARE, OTHER, SELFPAY ==
[2021-01-22 21:23] VITALS: BMI 23.3
--- NOTE | 2024-02-05 | DI.MRI.S_ITS ---
PROCEDURE: MR SHOULDER LT W CON INDICATIONS: left shoulder pain TECHNIQUE: After the administration of 12 mL of dilute intra-articular Gadolinium contrast, oblique coronal T1 and T2 spin echo with fat saturation, oblique sagittal T1 spin echo with and without fat saturation, oblique sagittal T2 fast spin echo with fat saturation, axial T1 spin echo with fat saturation through the shoulder. COMPARISON: None. FINDINGS: Image quality: Excellent. Rotator cuff: Low-grade articular and bursal surface partial thickness tear involving distal supraspinatus at its insertion on the humeral head is seen extending to musculotendinous junction. Distal infraspinatus and subscapularis tendons are intact. No rotator cuff tendon rupture. No significant rotator cuff muscle atrophy on sagittal images. Bones and bursae: Chronic appearing Hill-Sachs deformity in posterior lateral humeral head is seen. No marrow edema. No acute fracture or dislocation. Mild acromioclavicular joint osteoarthritic changes are seen with joint space narrowing and small downward osteophyte formation depressing the musculotendinous junction of supraspinatus. Type 1 acromion, without an os acromiale. Capsule and soft tissues: There is signal abnormality and contrast extension involving anterior inferior labrum suggestive of anterior-inferior labral tear. The glenohumeral ligaments appear intact. The long head of the biceps tendon demonstrates normal location and morphology. The rotator interval appears normal, without fibrosis. The coracohumeral ligament is of normal thickness. No intra-articular bodies. IMPRESSION: 1. Chronic appearing Hill-Sachs deformity in posterior lateral humeral head. No acute fracture or dislocation. Mild acromioclavicular joint osteoarthritis. No loose bodies. 2. Suggestion of anterior-inferior labral tear, and is consistent with Bankart lesion. 3. Low-grade articular and bursal surface partial thickness tear involving distal supraspinatus extending to musculotendinous junction. No full-thickness rotator cuff tendon rupture. Dictated by: Gómez Martinez M.D. on 02/05/2024 at 14:23 Approved by: Gómez Martinez M.D. on 02/05/2024 at 14:27
--- NOTE | 2024-02-05 | DI.RAD.S_ITS ---
PROCEDURE: FL SHOULDER INJECTION MR/CT LT INDICATIONS: left shoulder pain COMPARISON: None. TECHNIQUE: The indications, alternatives, benefits, risks, and complications of the procedure were explained to the patient. Written informed consent was obtained and placed in the chart. The shoulder was examined fluoroscopically and a site for needle placement chosen for entry into the glenohumeral joint from an anterior approach. The skin was prepped and draped in a sterile fashion, and 1% lidocaine infiltrated from skin down to joint capsule. A spinal needle was inserted into the glenohumeral joint, and a small amount of iodinated contrast media injected to confirm intra-articular placement of the needle tip. This was followed by approximately 12 mL dilute solution of a gadolinium containing MR contrast agent. The needle was removed and a dressing was applied. The patient was given postprocedural instructions and sent to the MR suite for MR imaging. FINDINGS: A single fluoroscopic spot image demonstrates intra-articular location of injected iodinated contrast. IMPRESSION: Successful fluoroscopically guided administration of dilute Gadolinium solution into the shoulder joint for MR arthrogram. Dictated by: Gómez Martinez M.D. on 02/05/2024 at 14:22 Approved by: Gómez Martinez M.D. on 02/05/2024 at 14:22
== END ==
LOC: RAD 11:22
PROVIDERS: PCP Family Medicine; Referring Provider Family Medicine; Visit Provider Family Medicine
DX: M75.112 Incomplete rotator cuff tear or rupture of left shoulder, not specified as traumatic (principal); M19.012 Primary osteoarthritis, left shoulder; M25.512 Pain in left shoulder; M25.511 Pain in right shoulder
CPT/HCPCS: 23350; 73040; 73222; A9579; Q9967

== ENCOUNTER → 2024-02-09 12:17 | Outpatient (CLI) | payer MEDICARE, OTHER, SELFPAY ==
[2021-01-22 21:23] VITALS: BMI 23.3
--- NOTE | 2024-02-09 | DI.MRI.S_ITS ---
PROCEDURE: MR SHOULDER RT W CON INDICATIONS: rt shoulder pain TECHNIQUE: After the administration of 12 mL of dilute intra-articular Gadolinium contrast, oblique coronal T1 and T2 spin echo with fat saturation, oblique sagittal T1 spin echo with and without fat saturation, oblique sagittal T2 fast spin echo with fat saturation, axial T1 spin echo with fat saturation through the shoulder. COMPARISON: [facility], CR, XR SHOULDER 2+ VIEWS RIGHT, 12/16/2023, 8:37. FINDINGS: Image quality: Limited evaluation given patient motion. Rotator cuff: There is full-thickness, full width tear of the supraspinatus at the footprint, with tendon retraction to the level of the glenoid. The infraspinatus is unremarkable. Teres minor is unremarkable. The subscapularis is unremarkable. Diffuse muscle edema of the supraspinatus with mild fatty atrophy. Bones and bursae: Deformity of the distal clavicle, which may be postprocedural versus posttraumatic. Type 2 acromion. No os acromiale. Large subacromial/subdeltoid bursitis. No acute fracture. No focal chondral defect. Capsule and soft tissues: Tear of the superior labrum. Large amount of contrast seen in the bicipital tendon sheath. The extra-articular biceps tendon is not visualized, likely fully torn. The intra-articular biceps tendon is not definitely visualized either. Large amount of contrast distends the glenohumeral joint and the subcoracoid bursa. IMPRESSION: 1. Full-thickness, full width tear of the supraspinatus with tendon retraction. Diffuse muscle edema of the supraspinatus. 2. Postprocedural versus posttraumatic changes in the distal clavicle. 3. Full-thickness tear of the extra-articular biceps tendon. Dictated by: Kathya Kauffman M.D. on 02/09/2024 at 15:22 Approved by: Kathya Kauffman M.D. on 02/09/2024 at 15:31
--- NOTE | 2024-02-09 12:21 | DI.RAD.S_ITS ---
PROCEDURE: FL SHOULDER INJECTION MR/CT RT INDICATIONS: RT SHOULDER PAIN COMPARISON: None. TECHNIQUE: The indications, alternatives, benefits, risks, and complications of the procedure were explained to the patient. Written informed consent was obtained and placed in the chart. The shoulder was examined fluoroscopically and a site for needle placement chosen for entry into the glenohumeral joint from an anterior approach. The skin was prepped and draped in a sterile fashion, and 1% lidocaine infiltrated from skin down to joint capsule. A spinal needle was inserted into the glenohumeral joint, and a small amount of iodinated contrast media injected to confirm intra-articular placement of the needle tip. This was followed by approximately 12 mL dilute solution of a gadolinium containing MR contrast agent. The needle was removed and a dressing was applied. The patient was given postprocedural instructions and sent to the MR suite for MR imaging. FINDINGS: A single fluoroscopic spot image demonstrates intra-articular location of injected iodinated contrast. IMPRESSION: Successful fluoroscopically guided administration of dilute Gadolinium solution into the shoulder joint for MR arthrogram. Dictated by: Eddie Sevilla M.D. on 02/09/2024 at 14:18 Approved by: Eddie Sevilla M.D. on 02/09/2024 at 14:18
[2024-02-09] MEDS: LIDOCAINE 1% 20 ML INJ (14:05)
[2024-02-09] MEDS: SODIUM CHLORIDE 0.9 % 20 ML VIAL IV (14:06)
== END ==
PROVIDERS: PCP Family Medicine; Referring Provider Family Medicine; Visit Provider Family Medicine
DX: M75.121 Complete rotator cuff tear or rupture of right shoulder, not specified as traumatic (principal); S46.211A Strain of muscle, fascia and tendon of other parts of biceps, right arm, initial encounter; M25.411 Effusion, right shoulder; M25.511 Pain in right shoulder; M25.512 Pain in left shoulder
CPT/HCPCS: 23350; 73040; 73222; A9579; Q9967

== ENCOUNTER → 2024-12-08 08:32 | Outpatient (CLI) | payer MEDICARE, OTHER, SELFPAY ==
[2021-01-22 21:23] VITALS: BMI 23.3
--- NOTE | 2024-12-08 08:35 | DI.RAD.S_ITS ---
PROCEDURE: XR CHEST 2V INDICATIONS: PNEUMONIA TECHNIQUE: 2 views of the chest were acquired. COMPARISON: [facility], CR, XR CHEST 2V, 04/02/2022, 15:50. [facility], CR, XR CHEST FOR PICC 1V, 01/20/2021, 1:42. FINDINGS: Surgical changes and devices: None. Lungs and pleura: Lungs are mildly edematous. Small bilateral pleural effusions and no pneumothorax. Mediastinum: Mediastinal contours are normal. Heart size is normal. Bones and chest wall: No suspicious bony abnormalities. Soft tissues appear unremarkable. IMPRESSION: Mild pulmonary edema pattern, patient rotated leftward which accentuates radiodensity of the right hemithorax. Slight pleural effusion seen on the lateral view bilaterally. No cardiomegaly or focal pneumonia currently found. Dictated by: Marco Hill M.D. on 12/08/2024 at 9:15 Approved by: Marco Hill M.D. on 12/08/2024 at 9:16
== END ==
PROVIDERS: PCP Family Medicine; Referring Provider Family Medicine; Visit Provider Family Medicine
DX: A31.0 Pulmonary mycobacterial infection (principal); J90 Pleural effusion, not elsewhere classified
CPT/HCPCS: 71046

== ENCOUNTER → 2025-02-03 11:55 | Outpatient (CLI) | payer MEDICARE, OTHER, SELFPAY ==
[2021-01-22 21:23] VITALS: BMI 23.3
--- NOTE | 2025-02-03 11:57 | DI.RAD.S_ITS ---
PROCEDURE: XR CHEST 2V INDICATIONS: Pneumonia, unspecified organism TECHNIQUE: 2 views of the chest were acquired. COMPARISON: [facility], CR, XR CHEST 2V, 12/08/2024, 8:30. FINDINGS: Surgical changes and devices: Cervical spine fixation hardware. Lungs and pleura: Small right pleural effusion. No evidence of focal consolidation. No evidence of pneumothorax. Mediastinum: Mediastinal contours are normal. Heart size is normal. Atherosclerotic vascular calcifications. Bones and chest wall: No suspicious bony abnormalities. Soft tissues appear unremarkable. Likely grade 3 right AC separation. IMPRESSION: Small right pleural effusion. Dictated by: Francisco Howard M.D. on 02/05/2025 at 18:01 Approved by: Francisco Howard M.D. on 02/05/2025 at 18:02
== END ==
PROVIDERS: PCP Family Medicine; Referring Provider Family Medicine; Visit Provider Family Medicine
DX: J18.9 Pneumonia, unspecified organism (principal); J90 Pleural effusion, not elsewhere classified
CPT/HCPCS: 71046

== ENCOUNTER → 2025-06-20 10:44 | Outpatient (CLI) | payer MEDICARE, OTHER, SELFPAY ==
[2021-01-22 21:23] VITALS: BMI 23.3
--- NOTE | 2025-06-20 10:49 | DI.RAD.S_ITS ---
PROCEDURE: XR CHEST 2V INDICATIONS: J12.89 TECHNIQUE: 2 views of the chest were acquired. COMPARISON: [facility], , XR CHEST 2V, 02/03/2025, 11:52. FINDINGS: Surgical changes and devices: None. Lungs and pleura: There is mild pulmonary vascular congestion. Blunting of right costophrenic angle is seen suggestive of trace right pleural effusion versus thickening. No pneumothorax. No definite focal infiltrate. Mediastinum: Mediastinal contours are normal. Heart size is enlarged. Bones and chest wall: No suspicious bony abnormalities. Soft tissues appear unremarkable. IMPRESSION: Cardiomegaly and mild congestion with trace right pleural effusion. No definite focal infiltrate. No pneumothorax. Dictated by: Gómez Martinez M.D. on 06/20/2025 at 17:44 Approved by: Gómez Martinez M.D. on 06/20/2025 at 17:45
== END ==
PROVIDERS: PCP Family Medicine; Referring Provider Family Medicine; Visit Provider Family Medicine
DX: J12.89 Other viral pneumonia (principal); I51.7 Cardiomegaly; R09.89 Other specified symptoms and signs involving the circulatory and respiratory systems
CPT/HCPCS: 71046